=== PATIENT | female | born 1950 | race African-American/Black ===

== ENCOUNTER 2019-07-15 15:12 | Inpatient (IN) ==
--- NOTE | 2019-07-15 15:50 | PROVIDER DOCUMENTATION ---
HPI-General Adult - General Stated Complaint: WEIGHT LOSS Time Seen by Provider: 07/15/19 15:35 Source: EMS Allergies/Adverse Reactions: Patient Allergies Allergy/AdvReac Type Severity Reaction Status Date / Time Sulfa (Sulfonamide Allergy Mild RASH Verified 11/04/15 01:05 Antibiotics) Home Medications: Home Medication List Medication Instructions Recorded Confirmed Last Taken Type NK [No Home Medications] 07/16/19 07/16/19 Unknown History - History of Present Illness -Gen Adult Nature of Presenting Problems: Pt brought in by EMS after being called by a family member. Niece is at bedside. Niece states she is from out of town and Pt is currently living with 22 YO nephew. Niece states she noticed something "not being right with pt" when she came into town which is why she called EMS. She has no hx for the patient and does not know the recent events of the patient. On exam, pt is not oriented and is barely talking. She repeats "I kneed my cell phone" she does not respond to questions. She does not answer if she is in any pain. She is in no acute distress but with dry mucous membraines. Niece states pt was in the process of having a workup for dementia by PCP but states other organic causes were trying to be ruled out, however pt was not compliant with getting tests performed. Review of Systems - Adult - REVIEW OF SYSTEMS - ADULT ROS:: unobtainable per condition Constitutional: reports: see HPI Eyes: reports: see HPI Ears, Nose, Mouth & Throat: reports: see HPI Cardiovascular: reports: see HPI Past History - Adult - PAST MEDICAL HISTORY-ADULT Review of Records: reports: Social history reviewed & non-contributory. Major Childhood Illnesses: reports: denies history Cardiovascular: reports: HTN, hyperlipidemia Musculoskeletal: reports: arthritis - PRIOR SURGERIES/PROCEDURES Surgical/Procedure History: reports: hysterectomy - IMMUNIZATION STATUS Childhood Immunizations: See Nurse Assessment Flu Vaccine: See Nurse Assessment - FAMILY HISTORY Family History: reviewed, not pertinent - SOCIAL HISTORY Living Situation: family (lives with 22 YO nephew) Physical Exam-General - PHYSICAL EXAM-ADULT Initial Vital Signs Reviewed: Yes - CONSTITUTIONAL General Appearance: alert, no apparent distress, thin, other (does not answer questions) - EYES Eyes: PERRL/EOMI - HEAD, EARS, NOSE, MOUTH & THROAT HENMT: other (dry membraines) - NECK Neck: full range of motion, supple - RESPIRATORY Respiratory: lungs clear, normal breath sounds, no pleuratic chest pain, no respiratory distress - GASTROINTESTINAL (ABDOMEN) Abdominal Exam: soft, tenderness, other (LLQ tenderness). negative: distended, guarding, rebound - MUSCULOSKELETAL Extremity: normal range of motion, normal inspection, no pedal edema - SKIN Integumentary: normal color, normal turgor, warm/dry - NEUROLOGIC Neurologic: grossly normal - PSYCHIATRIC Psych/Mental Status: disoriented x 3 Progress - PLAN OF CARE/RESULTS Progress/Plan/Lab Results: Orders Category Date Time Status CHEST-1 VIEW [RAD] Stat Exams 07/15/19 15:[address] ABDOMEN/PELVIS W/O CONTRAST [CT] Stat Exams 07/15/19 15:[address] HEAD W/O CONTRAST [CT] Stat Exams 07/15/19 15:43 Ordered CBC WITH ELECTRONIC DIFF [HEME] Stat Lab 07/15/19 15:43 Uncollected COMPREHENSIVE METABOLIC PANEL [CHEM] Stat Lab 07/15/19 15:43 Uncollected MAGNESIUM [CHEM] Stat Lab 07/15/19 15:45 Uncollected TROPONIN T Stat Lab 07/15/19 15:43 Ordered TSH Stat Lab 07/15/19 15:43 Uncollected URINALYSIS W/POSS RFLX CULT [URINALYSIS] Stat Lab 07/15/19 15:43 Uncollected EKG [EKG] Stat Ther 07/15/19 15:43 Ordered Result Diagrams: 07/24/19 03:49 07/25/19 05:30 - REASSESSMENT Reassessment #1 Status: other (labs reviewed and showing normal WBC and normal lactate. imaging showing SBP and b/l infliltrates in lower lung lobes. will give zosyn for possible aspiration pna, and rocephin already given. admitting for pna and sbo. Dr. Boykin pt.) - EKG 1 Time of EKG reading by physician:: 16:35 Rate: 124 Rhythm: junctional rhythm QRS: poor R wave progression, other (poor voltage) ST Wave: normal Prior EKG Comparison: changes noted (new junctional rhythm change from October 2018.) - CT/MRI 1 CT Study: Head Impression: See EMR Report (CT HEAD W/O CONTRAST - 07/15/2019 INDICATION: AMS COMPARISON: 11/09/2018 FINDINGS: There is selective cerebral atrophy in the frontal and temporal lobes. This has worsened since prior. No intracranial mass or hemorrhage. The skull is intact. The sinuses are clear. IMPRESSION: Worsening cerebral atrophy. This is selective for the frontal temporal lobes. This may represent frontotemporal dementia. This exam was performed using automated exposure control, adjustment of mA or kV according to patient size, and/or use of iterative reconstruction technique Electronically signed by Fred Beach 07/15/2019 4:36 PM) - CONSULTS/PCP/HOSPITALIST Notification #1 *Consult/PCP/Hospitalist*: Dr. Perez Time Discussed: 16:50 Consult Disposition: other #2 Consult: Dr. Boykin states he is on his way into the ED Time Discussed: 18:05 Consult Disposition: Will see in ED Departure - Departure Date of Disposition Decision: 07/15/19 Time of Disposition Decision: 19:06 DIAGNOSIS: Pneumonia, Small bowel obstruction Disposition: ADMITTED INPATIENT 09 Certified Medical Emergency: Emergent Condition: Stable - Critical Care Note This patient required my direct & personal management of CC.: No Attestation - Physician/ STEF Attestation Patient care was provided by Advanced Practice Provider:: No The physician spent face to face time with patient:: Yes Advanced Practice Provider documentation review:: Supervising physician onsite and consulted in the evaluation and care of this patient. The physician did have a face to face encounter with the patient.
--- NOTE | 2019-07-15 16:38 | Diag Imaging Result Doc PS360 ---
CT HEAD W/O CONTRAST - 07/15/2019 INDICATION: AMS COMPARISON: 11/09/2018 FINDINGS: There is selective cerebral atrophy in the frontal and temporal lobes. This has worsened since prior. No intracranial mass or hemorrhage. The skull is intact. The sinuses are clear. IMPRESSION: Worsening cerebral atrophy. This is selective for the frontal temporal lobes. This may represent frontotemporal dementia. This exam was performed using automated exposure control, adjustment of mA or kV according to patient size, and/or use of iterative reconstruction technique Electronically signed by Fred Beach 07/15/2019 4:36 PM
--- NOTE | 2019-07-15 16:53 | Diag Imaging Result Doc PS360 ---
CT ABDOMEN/PELVIS W/O CONTRAST - 07/15/2019 INDICATION: LLQ abdominal pain COMPARISON: 03/27/2019 FINDINGS: There are extensive hazy infiltrates in the lung bases bilaterally compatible with pneumonia. Heart size is normal. There is a small pericardial effusion, similar to prior. There is a rather large hiatal hernia. There is severe distention of numerous proximal small bowel loops, with complete collapse of the distal small bowel and colon. This indicates a high-grade small bowel obstruction. The transition point is probably in the pelvis. No free air or free fluid. Urinary bladder is normal. There are moderate degenerative changes of the spine. No acute or suspicious bony lesion. IMPRESSION: 1. High-grade distal small bowel obstruction. The transition point is probably in the pelvis. 2. Extensive infiltrate/pneumonia in the lung bases. This exam was performed using automated exposure control, adjustment of mA or kV according to patient size, and/or use of iterative reconstruction technique Electronically signed by Fred Beach 07/15/2019 4:50 PM
[2019-07-15] MEDS ORDERED: ROCEPHIN 1 GM in NS 50 ML IV ONE (17:04)
[2019-07-15] MEDS ORDERED: ZOSYN 3.375 GM in NS 50 ML IV ONE (17:22)
[2019-07-15 17:24] LABS: URINE SOURCE CATH
[2019-07-15 17:30] LABS: BASO# 0.01 X1000 (0.0-0.2); BASO% 0.1 % (0.0-0.8); HEMATOCRIT 40.6 % (37.0-47.0); HEMOGLOBIN 13.1 g/dL (12.0-16.0); IMM GRAN# 0.03 X1000 (0.0-0.04); IMM GRAN% 0.3 % (0.0-0.5); LYMPH# 0.99 X1000 (1.2-3.4); LYMPH% 10.3 % (20.5-51.1); MCH 30.9 PG (27-31); MCHC 32.3 g/dL (33-37); MCV 95.8 FL (81-99); MONO# 0.51 X1000 (0.11-0.59); MONO% 5.3 % (1.7-9.3); MPV 12.8 FL (7.4-10.4); NEUT# 8.06 X1000 (1.4-6.5); PLT 103 X1000 (130-400); RBC 4.24 XMIL (4.2-5.4); RDW 15.3 % (11.5-14.5)
[2019-07-15 17:31] LABS: UR EPITHELIAL CELLS <10 /HPF (<10); URINE BACTERIA NEGATIVE /HPF; URINE RBC <10 /HPF (<10); URINE WBC <10 /HPF (<10)
[2019-07-15 17:32] LABS: BILIRUBIN URINE SMALL (NEGATIVE); BLOOD URINE NEGATIVE (NEGATIVE); COLOR YELLOW; GLUCOSE URINE NEGATIVE (NEGATIVE); KETONE URINE TRACE mg/dL (NEGATIVE); LEUKOCYTES URINE NEGATIVE (NEGATIVE); NITRITE URINE NEGATIVE (NEGATIVE); PROTEIN URINE TRACE mg/dL (NEGATIVE); SP GRAVITY URINE 1.027; TURBIDITY URINE CLEAR (CLEAR); UROBILINOGEN URINE 4 mg/dL (NORMAL)
--- NOTE | 2019-07-15 17:53 | Diag Imaging Result Doc PS360 ---
CHEST-1 VIEW - 07/15/2019 INDICATION: AMS COMPARISON: 11/25/2018 FINDINGS: The chest is clear. There are several severely gaseous distended loops of small bowel indicating small bowel obstruction. This is better evaluated on the abdomen pelvis CT. IMPRESSION: High-grade small bowel obstruction. Electronically signed by Fred Beach 07/15/2019 5:50 PM
[2019-07-15 17:55] LABS: ALB/GLOB RATIO 1.2; CALCIUM 10.2 mg/dL (8.8-10.2); CREATININE 1.3 mg/dL (0.5-0.9); MAGNESIUM 2.3 mg/dL (1.5-2.7); POTASSIUM 4.1 mmol/L (3.5-5.1); TOTAL BILIRUBIN 0.92 mg/dL (0.20-1.00); TOTAL PROTEIN 7.3 g/dL (6.3-8.3)
[2019-07-15] MEDS ORDERED: NS 3,000 ML IV ONE (19:35)
[2019-07-15] MEDS ORDERED: ZOFRAN IV PRN (19:35)
[2019-07-15] MEDS ORDERED: HALDOL IV PRN (20:05)
[2019-07-15] MEDS ORDERED: HALDOL IV ONE (20:05)
--- NOTE | 2019-07-15 20:26 | EKG Report ---
Test Performed on : 07/15/2019 4:32:24 PM Test Reason : CP Blood Pressure : / mmHG Vent. Rate : 124 BPM Atrial Rate : 120 BPM P-R Int : 000 ms QRS Dur : 064 ms QT Int : 420 ms P-R-T Axes : 000 023 088 degrees QTc Int : 603 ms Accelerated Junctional rhythm. Low voltage QRS Septal infarct (cited on or before 09-NOV-2018) Abnormal ECG When compared with ECG of 09-NOV-2018 09:05, Significant changes have occurred Unconfirmed Result
--- NOTE | 2019-07-15 22:42 | Diag Imaging Result Doc PS360 ---
CHEST/ABD TUBE PLACEMENT - 07/15/2019 9:48 PM INDICATION: NG placement COMPARISON: 4:23 PM FINDINGS: There is a nasogastric tube entering the stomach. Recommend advancing by about 5 to 10 cm. IMPRESSION: Recommend advancing nasogastric tube 5-10 cm. Electronically signed by Fred Beach 07/15/2019 10:40 PM
[2019-07-16] MEDS: ZOSYN 2.25 GM in NS 50 ML IV SCH ×4 (00:20→18:54)
[2019-07-16] MEDS: HALDOL IV PRN ×5 (00:21→22:34)
[2019-07-16] MEDS ORDERED: CALMOSEPTINE OINTMENT TOP PRN (02:04)
--- NOTE | 2019-07-16 06:37 | HISTORY AND PHYSICAL ---
CHIEF COMPLAINT: Mental status change. HISTORY OF PRESENT ILLNESS: This 68-year-old black female has been having trouble for quite some time. Over the course of last summer and fall, we had several meetings where she was not making sense and seemed to be mentally ill. We contacted the family and attempted to get them to get her into some type of program for mental health. This was not done. A month later in February they presented with complaint of weight loss, noncompliance, and many other complaints. They still felt that the patient was making her own decisions and at the time I expressed the need to do a complete workup with the patient and with the family. The patient for the most part refused workup. She eventually did agree to go see a employee relations representative and had a esophageal stricture dilated, but this did not improve her p.o. intake in any way. She refused to take the medication necessary to complete colonoscopy. In March we did a CT scan of the abdomen and pelvis. She is basically nonverbal now although she is alert and does various and sund word puzzles at times but does not communicate and basically will not talk to anybody or comply with any wishes. She apparently still manages her own medication. For inexplicable reasons, the patient's family decided that she had lost enough weight and called an ambulance to take her to the emergency room today for evaluation. I had a long talk with the family about how no one had durable power of real estate associate attorney for healthcare decisions and in the office, the patient had refused workup. We all acknowledged that the patient was not thinking clearly or correctly and that we would likely have to have some type of intervention to have medical decisions made. Her emergency room workup included a CT of the abdomen, which now showed a high- grade small bowel obstruction some place in the pelvis was the transition point. The patient had been having some vomiting but she ate so little it was difficult to tell. The CT scan also showed a possible infiltrate in the lower lobes of the lungs, but this did not show up on regular chest x-ray. The patient's lab work was otherwise good. She is admitted for treatment. PAST MEDICAL HISTORY: 1. Underweight. 2. Noncompliance with medical treatment. 3. Hypercholesterolemia. 4. History of hypertension. PAST SURGICAL HISTORY: 1. Cataract surgery. 2. Hysterectomy. 3. Gallbladder surgery. SOCIAL HISTORY: The patient is single. She is a nonsmoker. She is nonalcoholic user. FAMILY HISTORY: Noncontributory. On 03/13 the patient had lost approximately 40 pounds over previous 6 months. She has lost even more at this point. There has not been any fever or chills. Her mental status on the whole has declined. She was having some degree of mental confusion and this was documented in previous office notes that she made often nonsensical replies to questions even though her speech was fluid. This has deteriorated into her basically not responding verbally. The patient did not have any abdominal pain but was noted to be slightly tender in the emergency room. There were no other neurological problems with her as far as seizure activity or other changes. From a psychological standpoint as stated above she is not very talkative rarely responds. She will answer some questions yes or no to the family. PHYSICAL EXAMINATION: The patient is emaciated. Temperature 97.6 degrees, pulse rate 119, respiratory rate 14, blood pressure is 102/75. LUNGS: Clear to auscultation. CARDIOVASCULAR: Regular but tachycardic. ABDOMEN: Slightly tender in the upper quadrants bilaterally. She has rare bowel sounds. She is otherwise thin. She does not appear to have any tenderness in the lower quadrants. EXTREMITIES: Show considerable muscle wasting and emaciation. PSYCH: The patient made eye contact but did not speak. She was actively completing a Seek-a-word puzzle. NEURO: She moved in the bed spontaneously and seemed to have no deficits except that she did not speak. LABORATORY: White cell count 9.6, hematocrit 40.6, BUN 61, creatinine 1.3. Blood sugars normal. Urinalysis shows no sign of infection. ASSESSMENT AND PLAN: 1. The patient has chronic weight loss and now presents with small bowel obstruction. The possibility of tumor exists. She never completed her colonoscopy. She last had one [place] [address] Johnson. She did have EGD recently with stricture dilation. We will plan to do some fluid resuscitation and address some other nutritional aspects as best we can with plan to keep the patient calm and compliant. I have consulted Dr. Kwadwo Perez and I am going to try and put an NG tube down to decompress her abdomen. 2. In discussion with the patient's family they realize that she has had such a significant down turn over the last 6 months to a year that she is likely unrecoverable in many ways despite being alert. I have made her a do not resuscitate level 1. I am going to see if the social work or the patient advocate can help us get durable power of real estate associate attorney for the daughter on Wednesday when they are in. 3. I had a long discussion with the family. They are aware of the difficulty associated with this workup and her present condition. They too view her physical condition as very unlikely to be salvageable, although she is clearly not actively dying. We will give her every opportunity to recover and support her in any way possible while we are trying to get to the bottom of this. 4. The patient has been demonstrating psychological issues for some time now and I do think that is at the heart of many of her problems. cc: Lázaro Boykin MD MTDD
--- NOTE | 2019-07-16 06:54 | GENERAL SURGERY CONSULTATION ---
DATE: 07/16/2019 REQUESTING PHYSICIAN: Dr. Boykin. REASON FOR CONSULTATION: Bowel obstruction. HISTORY OF PRESENT ILLNESS: A 68-year-old female with some form of dementia for which workup is still underway. Presented to the emergency department as family felt something was not right. The patient is not very responsive as far as verbally and so it is hard get a detailed history secondary to this. She was seen in the emergency department and had a CT scan that showed a bowel obstruction with the transition point potentially down in the pelvis. It is hard to assess. The patient is significantly tender. I was asked to weigh an opinion. The patient had an NG tube removed but she has been agitated and had been pulling at it. It was slightly dislodged and the nurses were actively putting it back in. She has been given Haldol to keep her sedated and calm. PAST MEDICAL HISTORY: Includes dementia, hyperlipidemia, hypertension, arthritis, sinusitis, gastroesophageal reflux disease. PAST SURGICAL HISTORY: Includes hysterectomy, hemorrhoidectomy, right shoulder surgery. ALLERGIES: Sulfa. HOME MEDICATIONS: Reviewed. FAMILY HISTORY: Difficult to obtain secondary to patient's mental status. SOCIAL HISTORY: Apparently lives at home with family members. REVIEW OF SYSTEMS: Difficult to obtain secondary to patient's mental status. PHYSICAL EXAMINATION: Vital Signs: The patient is currently afebrile. Pulse is 115, blood pressure 120/86. General Examination: No acute distress. -[place] female, looks stated age but essentially nonverbal. HEENT: Normocephalic, atraumatic. Pupils equal, round, reactive to light. Mucous membranes moist. Oropharynx benign. Neck: Supple. Trachea midline. Cardiovascular: Some mild tachycardia. Lungs: Grossly clear. Abdomen: Nondistended. Maybe some mild discomfort in the lower quadrants but no peritoneal signs, but exam is difficult secondary to patient's nonverbal status. Extremities: Moves all extremities. Neurologic: The patient is nonverbal. Vascular: All extremities perfused. LABORATORY: White blood cell count is 9, hematocrit is 40, platelet count 103,000. Remainder of labs reviewed. Imaging reviewed. ASSESSMENT AND PLAN: A 68-year-old female with bowel obstruction, with baseline dementia. 1. Bowel obstruction. At this time, I would like to try to see how she does with a nasogastric tube. She is agitated and may need to be in restraints. They have been giving her Haldol which has been calming her down slightly, but may need to consider restraints. Hopefully, she can improve with nasogastric tube decompression. She does have a transition point down in the pelvis which would likely be related to her hysterectomy. We will continue to follow. 2. Multiple medical comorbidities currently including dementia at this time, complicates her care, but we will continue to monitor. cc: MD Lázaro Reid MD
[2019-07-16] MEDS ORDERED: NS 1,000 ML ONE (07:51)
--- NOTE | 2019-07-16 11:15 | PROGRESS NOTE ---
DATE: 07/16/2019 SUBJECTIVE: The patient is essentially nonverbal, although she will grunt and nod. The family member that was there did not stay all night but did have contact with a person who was present all night and there was no significant difficulty. They stated the Haldol was good at relaxing her and keeping her from being agitated but it did not last the entire 6 hour period. We therefore decreased the interval to every 4 hours for her Haldol. OBJECTIVE: Vital Signs: 97.6, 104, 14, 105/78, and 99% saturated on room air. Physical Examination: The patient has chapped lips. Her sclerae are anicteric. She does make eye contact. Lungs: Clear to auscultation in all mijares. Cardiovascular: Regular at approximately 100 at the time of my examination. Abdomen: Was slightly tender in the upper quadrants. Bowel sounds were scarce but present. She was generally soft and only moderately distended. She had no lower quadrant tenderness. ASSESSMENT AND PLAN: 1. Due to the patient's mental decline and weight loss, I am going to order an rapid plasma reagin and an human immunodeficiency virus for tomorrow. We will recheck labs tomorrow as well. 2. We are going to continue nasogastric tube with low intermittent suction. We will need Hemoccult that is there is some coffee-grounds appearing material present there. We appreciate Dr. Perez's consultation and will continue to try and decompress her small bowel obstruction. 3. We will continue the judicious use of chemical and soft restraints as necessary. 4. CT of the abdomen showed possible infiltrative process in the lower lungs. She has had no breathing difficulty and physical examination does not bear this out. Nevertheless, we are covering her with antibiotics which should be appropriate for pneumonia, aspiration pneumonitis, or any other intra-abdominal process. 5. Do Not Resuscitate level 1. 6. Social work has been consulted. We will need to find some way to get a family member durable power of mergers and acquisitions attorney for healthcare decisions. 7. I am going to try and add some intravenous nutrition for her. cc: Lázaro Boykin MD
[2019-07-16] MEDS: D5 NS IV SCH (15:46)
[2019-07-16] MEDS: LIPOSYN 20% 500 ML IV SCH (15:48)
[2019-07-17] MEDS: ZOSYN 2.25 GM in NS 50 ML IV SCH ×4 (01:45→23:12)
[2019-07-17] MEDS: HALDOL IV PRN ×3 (03:16→23:11)
--- NOTE | 2019-07-17 06:40 | GENERAL SURGERY PROGRESS NOTE ---
DATE: 07/17/2019 SUBJECTIVE: Patient seems to be doing okay per the nursing staff, and less agitated. OBJECTIVE: Vital Signs: Patient is currently afebrile. Her vital signs are stable. General: No acute distress. Resting. HEENT: Normocephalic, atraumatic. Pupils equal, round, and reactive to light. Mucous membranes moist. Oropharynx benign. Neck: Supple. Trachea midline. Cardiovascular: Regular rate and rhythm. Lungs: Grossly clear. Abdomen: Soft. Difficult exam secondary to patient being nonverbal, but no grimacing. Extremities: Moves all extremities. Neurologic: Nonverbal. Vascular: All extremities perfused. Skin: No signs of jaundice. LABORATORY: None this morning as of yet. ASSESSMENT/PLAN: A 69-year-old female with bowel obstruction. Bowel obstruction. At this time, continue conservative nonoperative management with NG tube decompression. The patient is nonverbal so it makes the exam difficult, but it seems like she is doing okay. My partners will cover while I am gone. cc: MD Lázaro Reid MD
[2019-07-17 07:27] LABS: EOS# 0.04 X1000 (0.0-0.7); EOS% 1.3 % (0.0-10.0); HEMATOCRIT 31.1 % (37.0-47.0); HEMOGLOBIN 9.7 g/dL (12.0-16.0); IMM GRAN# 0.02 X1000 (0.0-0.04); IMM GRAN% 0.6 % (0.0-0.5); LYMPH# 0.54 X1000 (1.2-3.4); LYMPH% 17.3 % (20.5-51.1); MCH 31.3 PG (27-31); MCHC 31.2 g/dL (33-37); MCV 100.3 FL (81-99); MONO# 0.21 X1000 (0.11-0.59); MONO% 6.7 % (1.7-9.3); NEUT# 2.31 X1000 (1.4-6.5); NEUT% 74.1 % (42.2-75.2); PLT 216 X1000 (130-400); RDW 15.5 % (11.5-14.5); WBC 3.12 X1000 (4.8-10.8)
[2019-07-17 07:36] LABS: AGAP 10; ALB/GLOB RATIO 1.1; ALBUMIN 3.1 g/dL (3.5-5.0); ALKALINE PHOSPHATASE 51 U/L (32-104); BUN 32 mg/dL (8-22); CALCIUM 8.7 mg/dL (8.8-10.2); CHLORIDE 109 mmol/L (98-107); COSMO 312; ESTIMATED GFR > 60; GLUCOSE 126 mg/dL (70-104); GOT 13 U/L (10-30); GPT 11 U/L (10-36); POTASSIUM 2.6 mmol/L (3.5-5.1); SODIUM 153 mmol/L (136-145); TCO2 34 mmol/L (25-35); TOTAL BILIRUBIN 0.39 mg/dL (0.20-1.00); TOTAL PROTEIN 5.9 g/dL (6.3-8.3)
[2019-07-17 07:49] LABS: TSH 1.55 uIUmL (0.27-4.20)
[2019-07-17] MEDS: D5 NS IV SCH (08:00)
[2019-07-17] MEDS ORDERED: POTASSIUM CHLORIDE 60 MEQ in NS 500 ML IV ONE (08:21)
[2019-07-17] MEDS ORDERED: MAGNESIUM SULFATE 2 GM/S.W.I. 2 GM/50 ML IVPB IV ONE (08:22)
--- NOTE | 2019-07-17 08:51 | Diag Imaging Result Doc PS360 ---
EXAM: KUB ABDOMEN INDICATION: sbo TECHNIQUE: One view COMPARISON: 07/15/2019 FINDINGS: The tip of the NG tube projects well below the diaphragm and is probably in the antrum of the stomach or first part of the duodenum in the expected position. Multiple gas-distended loops of small bowel are again identified. The degree of distention has probably improved slightly as compared to the previous study. No large volume free abdominal gas is appreciated. IMPRESSION: Slight improvement of the degree of gaseous distention of small bowel as compared to the previous study. Electronically signed by José Miguel Ballesteros 07/17/2019 8:49 AM
[2019-07-17] MEDS: D5W 2,000 ML IV SCH ×2 (11:49→11:56)
[2019-07-17] MEDS: LIPOSYN 20% 500 ML IV SCH (15:41)
[2019-07-17 17:11] LABS: HIV ANTIBODY SCREEN SEE COMMENTS
--- NOTE | 2019-07-17 19:15 | PROGRESS NOTE ---
DATE: 07/17/2019 SUBJECTIVE: The patient's family states that she is "getting better." She seems a little stronger and a little more interactive; although, she still refuses to talk other than grunting, nodding and saying yes or no. OBJECTIVE: Vital Signs: 97.6, 90, 17, 113/60, 98% saturated on room air. PHYSICAL EXAM: General: Thin black female in no acute distress. Lungs: Clear. Cardiovascular: Regular. Abdomen: Slightly distended given her size. She is less tender than she was on previous days. She still states that it hurts, but she does not wince when I palpate her abdomen. Extremities: No peripheral edema. LABORATORY: White cell count 3.1, hemoglobin is 9.7, hematocrit 31.1. Sodium is 153, potassium 2.6, BUN 32, creatinine 1.0, glucose is 126. B12, folate and TSH are normal. ASSESSMENT AND PLAN: 1. Rapid plasma reagin and human immunodeficiency virus tests were negative. Obvious lab abnormalities have occurred as result of aggressive rehydration. We will try and replete these abnormal values and recheck tomorrow. 2. We continue with nasogastric tube suction. Yesterday, it appeared she had 600 to 800 mL of output. Today, she has had very little and it appears to be bilious. X-ray shows maybe a slight improvement in her bowel distention. 3. Continue use of Haldol and soft restraints as necessary. 4. The patient continues on antibiotics for a possible lung infection. 5. Do not resuscitate level 1. 6. Social Work has left a couple of notes, but there is not really any mention of helping the family get durable power of client portfolio manager for healthcare decisions. May need to incorporate other entities within the hospital system to try and help her get this done. 7. Given the patient's elevated sodium and low potassium we are going to replete those electrolytes which her deficient. I am also going to switch her over to D5 1/4 normal saline and recheck her electrolyte levels in the morning. cc: Lázaro Boykin MD [facility]
[2019-07-17] MEDS: PEPCID IV SCH (23:12)
[2019-07-18] MEDS: HALDOL IV PRN ×4 (03:51→21:28)
[2019-07-18] MEDS: D5W 2,000 ML IV SCH ×2 (05:09→09:08)
[2019-07-18] MEDS: ZOSYN 2.25 GM in NS 50 ML IV SCH ×3 (05:09→17:30)
[2019-07-18 06:42] LABS: BASO# 0.01 X1000 (0.0-0.2); BASO% 0.2 % (0.0-0.8); EOS# 0.14 X1000 (0.0-0.7); EOS% 3.3 % (0.0-10.0); HEMATOCRIT 32.6 % (37.0-47.0); HEMOGLOBIN 10.4 g/dL (12.0-16.0); LYMPH# 0.89 X1000 (1.2-3.4); LYMPH% 21.3 % (20.5-51.1); MCH 32.3 PG (27-31); MCHC 31.9 g/dL (33-37); MCV 101.2 FL (81-99); MONO# 0.38 X1000 (0.11-0.59); MONO% 9.1 % (1.7-9.3); MPV 11.5 FL (7.4-10.4); NEUT# 2.76 X1000 (1.4-6.5); NEUT% 66.1 % (42.2-75.2); PLT 192 X1000 (130-400); RBC 3.22 XMIL (4.2-5.4); RDW 15.3 % (11.5-14.5); WBC 4.18 X1000 (4.8-10.8)
[2019-07-18 07:51] LABS: AGAP 16; ALB/GLOB RATIO 1.2; ALBUMIN 2.8 g/dL (3.5-5.0); ALKALINE PHOSPHATASE 49 U/L (32-104); BUN 19 mg/dL (8-22); CALCIUM 8.4 mg/dL (8.8-10.2); CHLORIDE 109 mmol/L (98-107); COSMO 300; CREATININE 0.9 mg/dL (0.5-0.9); ESTIMATED GFR > 60; GLUCOSE 92 mg/dL (70-104); GOT 13 U/L (10-30); GPT 9 U/L (10-36); SED RATE 35 mm/hr (0-20); SODIUM 150 mmol/L (136-145); TCO2 25 mmol/L (25-35); TOTAL BILIRUBIN 0.45 mg/dL (0.20-1.00); TOTAL PROTEIN 5.2 g/dL (6.3-8.3)
[2019-07-18] MEDS ORDERED: POTASSIUM PHOSPHATE 30 MEQ in NS 250 ML IV ONE (08:06)
[2019-07-18] MEDS: PEPCID IV SCH ×2 (09:25→21:28)
--- NOTE | 2019-07-18 13:32 | PROGRESS NOTE ---
DATE: 07/18/2019 Ms. Robert is a 69-year-old, black female who does not communicate. She has an NG tube in place but on exam, her abdomen is soft and it does not appear to be tender. Her family is attentive and at the bedside. They are unsure whether she has had any flatus. No bowel movements have been recorded on the nurse's notes. I do not see any evidence of any hernia on exam. She has had previous abdominal surgery with a hysterectomy. PLAN: I will remove her NG tube. There has not been much output over the last 24 hours. Her abdomen is soft. It does not appear to be tender. Certainly, there is no abdominal distention. We will keep her NPO, see how she tolerates without the NG tube. The family says she is not eating well. May need tube feeding in the future for nutrition, possibly a PEG. Her heart rate is 70, blood pressure 117/72, O2 saturation 94%. She is afebrile. Her white blood cell count is low, hematocrit is 33%. Dr. Boykin is correcting her electrolytes. Her sodium is 150, her potassium is 3, BUN and creatinine are 19 and 0.9. cc: MD Lázaro Hymna MD
--- NOTE | 2019-07-18 14:34 | PROGRESS NOTE ---
DATE: 07/18/2019 CHIEF COMPLAINT: The patient is nonverbal. The patient's family are staying with her at night to keep her from pulling out her tubes. They state that her sedation medications are not quite adequate to keep her from getting agitated and doing that. The patient voices no complaints. She nods or grunts responses but seems alert. VITAL SIGNS: 97.5, 70, 16, 117/72, 94% saturated. PHYSICAL EXAMINATION: General: The patient is alert and responds with grunts. She will not talk. I have encouraged her to try and talk. Family states that she is capable of talking. HEENT: The sclerae are anicteric. Lungs: Clear to auscultation. Cardiovascular: Regular. Abdomen: Less distended than previously. There are some scant bowel sounds heard. There is very little NG tube output other than a little bit of bilious material and air. LABORATORIES: Hemoglobin 10.4, sodium 150, potassium 3.0, BUN 19, creatinine 0.9. ASSESSMENT AND PLAN: 1. The patient's laboratory abnormalities have been addressed with intravenous fluids. We will try and get those corrected. They will be recheck tomorrow. 2. Dr. Sarmiento discontinued the nasogastric tube and will try and feed her very slowly and gingerly. 3. Continued use of Haldol and soft restraints necessary. 4. The patient continues on antibiotics. 5. Do not resuscitate level 1. 6. Thus far no one has addressed the patient's competency. I have consulted Neurology to make sure that she is not just manifesting some form of dementia, although I think mental illness more likely. Also have a psychiatric evaluation so that we can have all that information on board when we try and get durable power of consumer attorney for someone in her family. I would like for either clinical social worker or patient advocate to help them to get [employer] involved as they can sometimes help with durable power of consumer attorney. cc: Lázaro Boykin MD
[2019-07-18] MEDS: LIPOSYN 20% 500 ML IV SCH (16:30)
--- NOTE | 2019-07-18 17:49 | CONSULTATION ---
DATE OF CONSULTATION: 07/18/2019 REASON FOR CONSULT: Rule out neurological disease/dementia. HISTORY: This is a 69-year-old right-handed, black female who was admitted three days ago. Family at bedside reports they brought her in because she has had slow gradual overall decline and significant weight loss. They report onset of symptoms somewhere in the last five years or so, maybe onset three years ago. The family reports they have noticed several things in the last three or four years. Some of the early less obvious findings included the patient not always recalling either some family or close friends. They thought she was perhaps joking. Her behavior has changed and she has become more withdrawn, less interested in things. Her speech pattern has become less over time as well and most often she does not speak now. The family, however, does say that she can speak and will speak sentences from time to time. Their impression is that she speaks when she wants to. They believe that she understands everything that is spoken to her and has not had indication to think otherwise. In the last year her symptoms have more noticeably worsened. She has taken to word-finding puzzles and her time has been really taken up by these. She had even begun to take them to hoahaoism as well, before she stopped going to hoahaoism entirely. Her diet has changed. She used to cook big meals and ate a variety of foods, but about a year ago she began focusing her diet on eating chicken only for quite some time. This transitioned into eating sweets and snacks such as chips and cakes and lollipops. This would have been very unusual for her. Later, she focused on eating mostly fruits. More recently, she has gone to drinking only shakes such as Ensure and now is not eating much at all for the last few months. She has had a significant weight loss. She is emaciated. She pushes food away and says it does not taste good. There has not been witnessed choking or difficulty swallowing. Her voice sounds normal when she does talk. Her behavior in the last couple of years has been unusual. They put a tracker on her phone and at one point, the granddaughter was calling police stations in various counties trying to have them assist in stopping the patient who was driving the [address] out of [facility]. The patient was confused. She had initially driven to [place] and stated that her store was not there and she was upset. When visiting relatives she began pulling her car into the grass and making excuses that did not make sense. She is not driving now. She has gone up to the car dealership and taken keys off of a wall trying to drive off with the car. She does not understand simple things that most people would be able to understand and that she herself would have been able to understand in prior years. Very recently she has not taken care of her house or herself. She is not maintaining her hygiene and not getting dressed. They also report that they may ask her a question and she would respond with changing the subject and talking about something unrelated. There has not been fever or recent illness that they are aware of. On admission, there was concern for possible small bowel obstruction but that seems to have improved. She has not had any hallucinations. She has no prior psychiatric history that they are aware of. She has not had problems with falling. Head CT on arrival did show worsening cerebral atrophy compared to a study in October earlier this year. That atrophy appears to be primarily in the frontal and temporal lobes. Lab abnormalities have included low white cell count, hemoglobin, and hematocrit, hypernatremia, a BUN of 61 on admission, now 19, creatinine 1.3 now 0.9. PAST MEDICAL HISTORY: Hypercholesterolemia. History of hypertension they report. GERD. Underweight. Medical noncompliance. SURGERY: Gallbladder surgery, hysterectomy, and cataract surgery. FAMILY HISTORY: No dementia, strokes, or seizures. SOCIAL HISTORY: No tobacco or alcohol. I believe a grandson has been staying with her. ALLERGIES: Listed to sulfa. CURRENT MEDICATIONS: Reviewed in the chart. REVIEW OF SYSTEMS: Unobtainable due to patient factors. PHYSICAL EXAMINATION: Vital Signs: Afebrile. Blood pressure 117/72, pulse 68, respirations 17, 100% on room air. General: Ms Robert is supine in bed. Appears to be resting comfortably but is easily awakened and seems attentive. She is emaciated. Family showed a picture of her from a few years back and there has been a dramatic change in her overall appearance. Neurologic: She does not speak. She did not follow commands. She actively resists passive eye opening and is persistent. I could not get a good look at her pupils. Gaze is conjugate. She tracks. She has full horizontal eye movement. I could not assess vertical eye movement well. She blinks to threat. Face appears symmetric. She appeared to move the limbs equally and withdrew her limbs equally to mild noxious stimuli. There was not obvious focal deficit. Reflexes were 2+ throughout. No clonus. Plantar response is downgoing. She does not participate with finger-to- nose or rapid alternating movements. DIAGNOSTICS: Labs as per above. Head CTs were personally reviewed. There is at least moderate cerebral atrophy which does appear to be selective for the frontal and temporal regions. ASSESSMENT AND PLAN: A 69-year-old female with progressive behavioral cell changer the last few years. There may also be a language disturbance but I cannot tell today if that is the case or if her lack of verbal output is more of a behavioral manifestation. Family reports that she will intermittently speak in full sentences. Clinical course and CT findings are concerning for an underlying dementia process. I suspect this may be a frontotemporal dementia. Other types are not excluded at this time. I would recommend an MRI of the brain with and without contrast if you can get that. The patient is likely to require some sedation before the study. I would continue treating her medical and metabolic abnormalities as you are doing. Thank you for the consultation cc: MD Lázaro Zelaya MD MTDD
[2019-07-18] MEDS: SODIUM CHLORIDE 0.9% INJ SCH (21:29)
[2019-07-19] MEDS: D5W 2,000 ML IV SCH ×2 (00:07→10:58)
[2019-07-19] MEDS: ZOSYN 2.25 GM in NS 50 ML IV SCH ×2 (00:07→05:52)
[2019-07-19 06:47] LABS: BASO# 0.02 X1000 (0.0-0.2); BASO% 0.4 % (0.0-0.8); EOS# 0.19 X1000 (0.0-0.7); EOS% 3.5 % (0.0-10.0); HEMOGLOBIN 10.6 g/dL (12.0-16.0); LYMPH# 1.17 X1000 (1.2-3.4); LYMPH% 21.5 % (20.5-51.1); MCH 32.1 PG (27-31); MCHC 33.1 g/dL (33-37); MONO# 0.46 X1000 (0.11-0.59); MONO% 8.4 % (1.7-9.3); MPV 11.8 FL (7.4-10.4); NEUT# 3.61 X1000 (1.4-6.5); NEUT% 66.2 % (42.2-75.2); PLT 225 X1000 (130-400); RDW 14.5 % (11.5-14.5); WBC 5.45 X1000 (4.8-10.8)
[2019-07-19 06:56] LABS: AGAP 13; ALB/GLOB RATIO 1.1; ALBUMIN 2.7 g/dL (3.5-5.0); ALKALINE PHOSPHATASE 49 U/L (32-104); BUN 12 mg/dL (8-22); CALCIUM 7.8 mg/dL (8.8-10.2); CHLORIDE 100 mmol/L (98-107); COSMO 277; CREATININE 0.9 mg/dL (0.5-0.9); ESTIMATED GFR > 60; GLUCOSE 101 mg/dL (70-104); GOT 14 U/L (10-30); GPT 9 U/L (10-36); MAGNESIUM 2.2 mg/dL (1.5-2.7); PHOSPHORUS 2.7 mg/dL (2.7-4.5); POTASSIUM 2.8 mmol/L (3.5-5.1); SODIUM 139 mmol/L (136-145); TCO2 26 mmol/L (25-35); TOTAL BILIRUBIN 0.35 mg/dL (0.20-1.00); TOTAL PROTEIN 5.2 g/dL (6.3-8.3)
[2019-07-19] MEDS: SODIUM CHLORIDE 0.9% INJ SCH (08:25)
[2019-07-19] MEDS: PEPCID IV SCH ×2 (08:25→21:57)
[2019-07-19] MEDS ORDERED: M.V.I.-12 10 ML, FOLIC ACID 1 MG, MAGNESIUM SULFATE 1 GM, THIAMINE 100 MG in NS 1,000 ML IV ONE (08:56)
[2019-07-19] MEDS: HALDOL IV PRN ×2 (09:17→21:56)
[2019-07-19] MEDS: POTASSIUM CHLORIDE 60 MEQ in NS 500 ML IV SCH ×2 (10:51→22:09)
--- NOTE | 2019-07-19 11:42 | PROGRESS NOTE ---
DATE: 07/19/2019 SUBJECTIVE: The patient is awake and alert, she makes eye contact. She will nod, frown and grunt, but will not talk. She denies any pain. She is working a word puzzle. Her family members are present, which I spoke to at length. OBJECTIVE: Vital signs: 98.2, 86, 20, 121/62. General: The patient is alert and makes eye contact. She is lying in a bed working a word puzzle. She is moving about trying to throw her legs over the rails. The family is trying to keep her in the bed. She is not violent. Lungs: Clear. Cardiovascular: Regular. Abdomen: No evidence of distention. There are bowel sounds present, albeit somewhat slow. LABORATORY: White cell count 5.5, hemoglobin 10.6, potassium 2.8, BUN 12, and creatinine 0.9. Liver function tests normal. ASSESSMENT AND PLAN: 1. Laboratory abnormalities are going to be repleted with IV. I have also written for a banana bag in case of any nutritional deficits that could be accommodated in that fashion. 2. Dr. Sarmiento discontinued nasogastric tube. We will try clear liquids today although her general response to this has been, according to the family, negative. 3. We can continue to use Haldol, and soft restraints as necessary. 4. The patient continues on antibiotics. 5. Do not resuscitate level 1. 6. I spoke again with the family about obtaining durable power of marine engine driver. Hopefully, we can get [employer] ]involved again to get an emergency or permanent durable power for her. 7. Neurological consultation revealed likely dementia and recommended MRI. I have ordered one for tomorrow with additional sedation with using Haldol and Ativan prior to her procedure. 8. In discussion with the family, the prospect of using a feeding tube was tossed out there. They are not sure that that would help her at all anyway. I think we really have 2 options at discharge, and that is going to be intermediate with a feeding tube and try to improve her nutrition although I do not think this will help her mental status in any way. If they decide against the feeding tube, then the other options are intermediate with hospice or to go home with hospice. I am not sure that they have the facility to adequately care for her at home. In all likelihood, she will need intermediate placement with hospice at some point. 9. Physical Therapy was consulted. cc: MD JESSI Logan
[2019-07-19] MEDS: LIPOSYN 20% 500 ML IV SCH (21:57)
[2019-07-19] MEDS: ZYPREXA ZYDIS PO SCH (21:57)
[2019-07-20] MEDS: HALDOL IV PRN ×3 (02:50→21:14)
[2019-07-20] MEDS: ZOSYN 2.25 GM in NS 50 ML IV SCH ×4 (02:59→21:14)
[2019-07-20] MEDS ORDERED: ATIVAN IV ONE (07:00)
[2019-07-20] MEDS: LIPOSYN 20% 500 ML IV SCH ×2 (09:14→21:26)
[2019-07-20] MEDS: D5W 2,000 ML IV SCH (09:35)
[2019-07-20] MEDS: PEPCID IV SCH ×2 (09:39→22:55)
--- NOTE | 2019-07-20 09:49 | Diag Imaging Result Doc PS360 ---
EXAM: MRI BRAIN W/WO CONTRAST INDICATION: dementia COMPARISON: None. FINDINGS: There is no evidence of acute infarct. The deep white matter signal is unremarkable. There is diffuse brain atrophy including parietal lobe atrophy and atrophy of the medial temporal lobe. The medial temporal lobe atrophy score (MTA score) is 2. There is no discrete intracranial mass, mass effect, or intracranial hemorrhage. There is no evidence of abnormal intracranial enhancement. There is minimal left sphenoid sinus mucosal disease. Surrounding soft tissues and bony structures are essentially unremarkable, otherwise. IMPRESSION: Diffuse brain atrophy as described above. No evidence of acute intracranial pathology. Electronically signed by José Miguel Ballesteros 07/20/2019 9:47 AM
--- NOTE | 2019-07-20 14:20 | EKG Report ---
Test Performed on : 07/20/2019 2:09:54 PM Test Reason : tachycardia Blood Pressure : / mmHG Vent. Rate : 121 BPM Atrial Rate : 121 BPM P-R Int : 128 ms QRS Dur : 060 ms QT Int : 342 ms P-R-T Axes : 033 -27 063 degrees QTc Int : 485 ms Sinus tachycardia. Inferior infarct , age undetermined Anteroseptal infarct (cited on or before 09-NOV-2018) Abnormal ECG When compared with ECG of 15-JUL-2019 16:32, (Unconfirmed) Sinus rhythm. has replaced Junctional rhythm. Inferior infarct is now present Questionable change in initial forces of Anterior leads Confirmed by Sg BEACH, Marty Yuan ([id number]) on 07/24/2019 9:25:50 AM
--- NOTE | 2019-07-20 14:25 | PROGRESS NOTE ---
DATE: 07/20/2019 SUBJECTIVE: The patient is not in the room. She is out getting an MRI. I spoke with the family member. The family member stated that the patient vomited fecal material today. She has eaten or drank very little, but did have a small amount of water prior to this. OBJECTIVE: Vital Signs: Temperature 97.9, pulse rate of 120, respiratory rate of 16, blood pressure 117/80, 97% saturated on room air. Physical exam not performed. LABORATORIES: There were no laboratories drawn today. X-RAYS: The patient had an MRI today which showed diffuse brain atrophy consistent with dementia and an abnormal medial temporal atrophy score. ASSESSMENT AND PLAN: 1. With the vomiting of feculent material, I think we need to repeat an x-ray. We may need to make her on nothing by mouth again. 2. I do not have an explanation for her elevated heart rate other than that she has become dehydrated again. We will restart intravenous fluids. 3. The clinical picture and magnetic resonance imaging are consistent with dementia. 4. I do not feel the patient is competent to make her own decisions. 5. I have spoken with multiple family members. I have encouraged them to contact [facility] to get durable power of commercial attorney. Apparently no one has done so despite instructions from myself and from social work to do this during this hospitalization. If memory serves me correctly, on our last office visit several months ago, the same instructions were given to the patient's daughter and no one has followed through. Today my office staff called [facility] about the patient and I received no other word from that office about whether they were going to make contact. 6. Do not resuscitate level 1. cc: Lázaro Boykin MD
--- NOTE | 2019-07-20 14:42 | Diag Imaging Result Doc PS360 ---
EXAM: KUB ABDOMEN 07/20/2019 HISTORY: vomiting TECHNIQUE: KUB COMMENT: There are distended gas-filled small bowel loops throughout the abdomen. The NG tube which was demonstrated on 07/17/2019 is no longer visible. There is stool in the rectum. IMPRESSION: Small bowel obstruction. Electronically signed by Kieran Valdes 07/20/2019 2:40 PM
--- NOTE | 2019-07-20 14:48 | PROGRESS NOTE ---
DATE: 07/20/2019 Ms. Robert is 69 years old, and she has had a progressive degenerative ROUGHER [employer] CEMENT process over several years. Dr. Hunt saw her for initial Neurology evaluation a few days ago. There has been concern for frontotemporal dementia. According to the family at the bedside now, she first had problems with behavior prior to the onset of language trouble. Dementia has been prominent in recent years. She has had workup here including brain MRI showing diffuse atrophy, more posterior than frontal. Medial temporal atrophy score was 2 which is of uncertain significance at age 69. She was apparently not taking any medications prior to hospitalization. Here, she has received haloperidol 5 mg as needed, averaging 2 or 3 doses daily, and she had 1 dose of lorazepam 1 mg this morning, and I think that may have been for MRI. I discussed frankly with family uncertainty regarding specific diagnosis, difficulty with being certain about a specific type of dementing illness, and likelihood that making specific diagnosis will not result in benefit to her. I suggested they consider [facility] referral if they would like to have a more precise diagnosis. I do not have any other thoughts or new suggestions from Neurology standpoint. cc: MD Lázaro Narayan III, MD MTDD
[2019-07-20] MEDS: ZYPREXA ZYDIS PO SCH (21:15)
[2019-07-20] MEDS: SODIUM CHLORIDE 0.9% INJ SCH (22:55)
[2019-07-21] MEDS: ZOSYN 2.25 GM in NS 50 ML IV SCH ×4 (02:45→20:30)
[2019-07-21] MEDS: D5W 2,000 ML IV SCH ×2 (03:51→11:49)
[2019-07-21] MEDS: HALDOL IV PRN (05:53)
[2019-07-21 06:37] LABS: BASO# 0.02 X1000 (0.0-0.2); BASO% 0.2 % (0.0-0.8); EOS# 0.01 X1000 (0.0-0.7); EOS% 0.1 % (0.0-10.0); HEMATOCRIT 34.7 % (37.0-47.0); HEMOGLOBIN 11.5 g/dL (12.0-16.0); IMM GRAN# 0.03 X1000 (0.0-0.04); IMM GRAN% 0.2 % (0.0-0.5); LYMPH# 0.59 X1000 (1.2-3.4); LYMPH% 4.9 % (20.5-51.1); MCH 31.2 PG (27-31); MCHC 33.1 g/dL (33-37); MONO# 0.66 X1000 (0.11-0.59); MONO% 5.5 % (1.7-9.3); MPV 11.4 FL (7.4-10.4); NEUT% 89.1 % (42.2-75.2); PLT 289 X1000 (130-400); RBC 3.69 XMIL (4.2-5.4); RDW 14.4 % (11.5-14.5); WBC 12.11 X1000 (4.8-10.8)
[2019-07-21 06:57] LABS: AGAP 14; ALB/GLOB RATIO 0.9; ALBUMIN 2.9 g/dL (3.5-5.0); ALKALINE PHOSPHATASE 86 U/L (32-104); BUN 8 mg/dL (8-22); CALCIUM 8.6 mg/dL (8.8-10.2); CHLORIDE 99 mmol/L (98-107); COSMO 271; CREATININE 0.9 mg/dL (0.5-0.9); ESTIMATED GFR > 60; GLUCOSE 173 mg/dL (70-104); GOT 13 U/L (10-30); GPT 10 U/L (10-36); POTASSIUM 3.8 mmol/L (3.5-5.1); SODIUM 134 mmol/L (136-145); TCO2 21 mmol/L (25-35); TOTAL BILIRUBIN 0.84 mg/dL (0.20-1.00)
[2019-07-21] MEDS ORDERED: NS 2,000 ML IV ONE (09:23)
[2019-07-21] MEDS: PEPCID IV SCH ×2 (09:40→20:30)
--- NOTE | 2019-07-21 09:59 | PROGRESS NOTE ---
DATE: 07/21/2019 SUBJECTIVE: The patient's sister who was present stated that she had a night of a lot of agitation, rapid breathing and relative disorientation. She is occasionally vomiting up small amounts of bilious and/or feculent material. This morning the patient is lying in bed and really does not respond to any stimuli from me. She is moving about the bed though. OBJECTIVE: Vital Signs: 97.8, 143, 16, 151/79, 92% saturated on room air. General: The patient is tachypneic, not really in distress though. Heart: Heart rate is very rapid, it is very difficult to quantify on physical exam. Abdomen: Slightly distended but not markedly so. I do not hear any bowel sounds. LABORATORY DATA: White cell count 12.1, hemoglobin is 11.5. Sodium 134, potassium 3.8, BUN 8, creatinine 0.9. ASSESSMENT AND PLAN: 1. The patient is vomiting feculent material. I am going to check a chest x-ray to make sure she has not developed aspiration pneumonitis. She is on antibiotics that should cover that. We will provide her with respiratory support as appropriate and necessary. I have contacted Surgery to render again an opinion on her small-bowel obstruction and whether anything else can or should be done at this point. 2. The patient is markedly tachycardic. This could signal the beginning of the end for her. I am going to give her a 2 L fluid bolus and continue her standing IV fluids and monitor progress in that regard. 3. The MRI and neurological consult are consistent with some type of dementia. As per Dr. Mendoza's note, even if we were able to make a specific diagnosis, there is very little in the way of treatment that we can do to reverse the course of this situation. 4. We finally made contact with [facility] and they will not do anything outside of the office, but they referred us to an commercial real estate attorney who may be willing to come to the hospital to get papers signed. We also were in contact with the patient's daughter who stated she might be able to come in and sign papers to provide a durable power of commercial real estate attorney for healthcare decisions only. I do think the patient is at the end of her life and there is very little we can do because of her overall emaciation and severe dementia. 5. Do Not Resuscitate level 1. cc: Lázaro Boykin MD [facility]
[2019-07-21 10:18] LABS: ALLEN TEST YES; BE 0.2 mmoll (-3.0-3.0); BLOOD TYPE ARTERIAL; HCO3-(ACT) 24.8 mmoll (20.0-26.0); METHB 1.6 % (0.0-1.5); O2(CT) 14.9 mL/dL (15.0-23.0); PCO2(98.6) 28 mmHg (35-45); SAMPLE BLOOD; THB 12.2 g/dL (11.5-17.4); pH(98.6) 7.51 (7.35-7.45)
[2019-07-21 10:19] LABS: MODALITY ROOM AIR
[2019-07-21 10:20] LABS: PO2(98.6) 49 mmHg (60-100)
--- NOTE | 2019-07-21 11:38 | Diag Imaging Result Doc PS360 ---
EXAM: CHEST-PORTABLE INDICATION: tachypnea TECHNIQUE: One view COMPARISON: 07/15/2019 FINDINGS: The NG tube has been removed during the interval. The patient is rotated toward the right. There is increased central vasculature and development of subtle infiltrates bilaterally likely representing pulmonary venous congestion and interstitial edema. Superimposed pneumonia is difficult to completely exclude. The cardiac silhouette is stable. IMPRESSION: Interval development of pulmonary venous congestion and central edema +/- pneumonia. Electronically signed by José Miguel Ballesteros 07/21/2019 11:36 AM
--- NOTE | 2019-07-21 12:41 | PROGRESS NOTE ---
DATE: 07/21/2019 SUBJECTIVE: Ms. Yves Robert is a 69-year-old black female who has been hospitalized since 07/15/2019. An abdominal and pelvic CT scan performed on the day of admission suggested a small bowel obstruction. An NG tube was placed, and for several days she was treated conservatively. On the 2nd week of the holiday, I took over and seen her for surgery, and removed her NG tube because her abdomen was soft. Dr. Boykin has tried to advance her diet. Over the last 2 days, she has vomited. Over the last 24 hours, she has vomited some feculent material. Her abdomen is more distended. An abdominal x-ray performed yesterday continues to show gas-filled small loops throughout the abdomen. She does not carry on a conversation so it is hard to tell how she is doing clinically. In talking with her family, I think we need to proceed with exploratory laparotomy to correct any small-bowel obstruction or other pathology. The family understands this is a major intraabdominal surgery, and she may require ventilation after surgery and be hospitalized in the ICU. cc: MD Lázaro Hyman MD
[2019-07-21] MEDS ORDERED: DIPRIVAN 1% ONE (13:31)
[2019-07-21] MEDS ORDERED: XYLOCAINE-MPF 2% ONE (13:59)
[2019-07-21] MEDS ORDERED: QUELICIN (DOSE) ONE (13:59)
[2019-07-21] MEDS ORDERED: ROBINUL ONE (13:59)
[2019-07-21] MEDS ORDERED: ALBUMIN 25% ONE (14:01)
[2019-07-21] MEDS ORDERED: VERSED ONE ×2 (14:28→15:30)
[2019-07-21] MEDS ORDERED: FENTANYL ONE (15:27)
[2019-07-21] MEDS ORDERED: NORCURON ONE (15:27)
[2019-07-21] MEDS ORDERED: BREVIBLOC ONE (15:30)
[2019-07-21] MEDS ORDERED: ZEMURON ONE (15:30)
--- NOTE | 2019-07-21 16:57 | Diag Imaging Result Doc PS360 ---
EXAM: CHEST-PORTABLE 07/21/2019 HISTORY: central line placement TECHNIQUE: AP portable at 1651 COMMENT: There is a right internal jugular central venous catheter with its tip in the right atrium. There is an NG tube with its tip in the stomach. There is alveolar opacity in the left lower lobe. This was also present on 07/21/2019 at 0933. The opacity which appeared to be present on the previous study in the right upper lobe has apparently resolved. There is no evidence of pneumothorax or pleural fluid collection. IMPRESSION: Left lower lobe pneumonia. Electronically signed by Kieran Valdes 07/21/2019 4:55 PM
--- NOTE | 2019-07-21 17:22 | OPERATIVE NOTE ---
PROCEDURE DATE: 07/21/2019 PREOPERATIVE DIAGNOSIS: Small bowel obstruction. POSTOPERATIVE DIAGNOSIS: Small bowel obstruction. PRINCIPAL PROCEDURE: 1. Exploratory laparotomy with lysis of adhesions. 2. Right internal jugular central venous line using ultrasound guidance. SURGEON: Karis Sarmiento MD. ANESTHESIA: General. ESTIMATED BLOOD LOSS: 100 mL. DRAINS: None. INDICATIONS: Ms. Yves Robert is a 69-year-old, Black female who was hospitalized on 07/15/2019 through our emergency department with a CT scan suggesting small bowel obstruction. Initially she was treated with an NG tube and when I saw her earlier this week I thought clinically she was improved and removed her NG tube. However, over the last 2 days she has had vomiting and her abdomen has become more distended. Flat plate abdominal films still showed dilated loops of small bowel and we felt she needed to go to the operating room for exploratory laparotomy. She was difficult to examine because she does not talk. FINDINGS: She did have a distal small-bowel obstruction. She had a loop of bowel adhered to her retroperitoneum and right ovary. There was only several adhesions intra-abdominally in her pelvis from previous hysterectomy. We lysed these adhesions that were holding a loop of her small bowel and that cured the obstruction. We did take time to milk back the air and fluid in her dilated small bowel into the stomach which we removed with NG tube. We removed about 3.5 L of fluid. DESCRIPTION OF PROCEDURE: The patient was brought urgently to the operating room. She received general anesthesia under the direction of Dr. Gregory. An NG tube was placed, as was the Griffith catheter tube. Her abdomen was prepped and draped in a sterile field. I began the procedure with a midline incision made with a 10 blade scalpel and it was carried down through the skin and subcutaneous tissue with cautery. I transected the midline fascia again using cautery and entered the abdomen. She did have dilated small bowel loops. This was a distal small-bowel obstruction and the reason for the obstruction was a loop of bowel was twisted and adhered to the right ovary in the retroperitoneum. This was the only area that it was adhered to. I was able to finger fracture these adhesions and lift the bowel out of the abdomen. We took time to milk back the fluid and the air in the dilated loops of small bowel, back into the stomach which was removed with an NG tube. 3,500 mL of fluid was removed. We thought all bowel was viable. There was none compromised. We did not resect any small bowel. We explored the abdomen thoroughly. No other intra-abdominal pathology was noted. I used warm irrigation to irrigate out the bowel. We placed the bowel back in its anatomically correct position. I placed the greater omentum over the surface of the bowel. I checked the position of the NG tube and we took time closing the midline incision because she is small, slim and malnourished. I decided to use retention sutures. I also used a #1 Maxon stitch to close the fascia in addition to the retention sutures. We loosely closed the skin with skin clip last picker. Dressings were applied. I then directed my attention to more permanent IV access. Her base of right neck was prepped and draped in a sterile field. I used ultrasound guidance to identify the right internal jugular vein between the 2 heads of the right sternocleidomastoid muscle. Using ultrasound guidance on the first stick I used an 18-gauge needle to access this vein. I placed a guidewire over through the needle into the right side of the heart. The needle was removed. A dilator was placed over the guidewire, and then I used an antibiotic coated, triple-lumen central venous line and placed it over the guidewire into the superior vena cava. All 3 ports were functioning and were flushed with saline. I secured the catheter to the skin of her neck with two 3-0 silk stitches. Dressings were applied. She tolerated both of these procedures well. Plans are for her to go to the ICU on the ventilator with an NG tube and Griffith catheter tube in place. cc: MD Lázaro Hyman MD
[2019-07-21 17:24] LABS: ALLEN TEST YES; BE -5.5 mmoll (-3.0-3.0); BLOOD TYPE ARTERIAL; HCO3-(ACT) 20.6 mmoll (20.0-26.0); METHB 1.1 % (0.0-1.5); O2(CT) 21.9 mL/dL (15.0-23.0); O2HB 97.8 % (95.0-99.0); PCO2(98.6) 35 mmHg (35-45); PO2(98.6) 167 mmHg (60-100); SAMPLE BLOOD; SRATE 12 BPM; THB 15.7 g/dL (11.5-17.4); TVOL 350 mL; pH(98.6) 7.35 (7.35-7.45)
[2019-07-21 17:30] LABS: MODALITY VENTILATOR
[2019-07-21 17:47] LABS: HEMOGLOBIN 10.4 g/dL (12.0-16.0)
[2019-07-21] MEDS ORDERED: ZOFRAN IV PRN (17:56)
[2019-07-21 18:12] LABS: AGAP 12; BUN 6 mg/dL (8-22); CALCIUM 7.7 mg/dL (8.8-10.2); CHLORIDE 107 mmol/L (98-107); COSMO 277; CREATININE 0.6 mg/dL (0.5-0.9); ESTIMATED GFR > 60; GLUCOSE 128 mg/dL (70-104); POTASSIUM 3.5 mmol/L (3.5-5.1); SODIUM 139 mmol/L (136-145); TCO2 20 mmol/L (25-35)
[2019-07-21 18:26] LABS: URINE SOURCE CATH
[2019-07-21 18:40] LABS: BILIRUBIN URINE NEGATIVE (NEGATIVE); BLOOD URINE SMALL (NEGATIVE); COLOR YELLOW; GLUCOSE URINE NEGATIVE (NEGATIVE); KETONE URINE NEGATIVE (NEGATIVE); LEUKOCYTES URINE NEGATIVE (NEGATIVE); NITRITE URINE NEGATIVE (NEGATIVE); PH URINE 6.5; PROTEIN URINE TRACE mg/dL (NEGATIVE); SP GRAVITY URINE 1.017; TURBIDITY URINE CLEAR (CLEAR); UROBILINOGEN URINE NORMAL (NORMAL)
[2019-07-21 18:42] LABS: UR EPITHELIAL CELLS <10 /HPF (<10); URINE BACTERIA NEGATIVE /HPF; URINE RBC 20-40 /HPF (<10); URINE WBC <10 /HPF (<10)
[2019-07-21] MEDS: OFIRMEV 1000 MG/ISOTONIC SOLN 1,000 MG/100 ML BOTTLE IV SCH ×2 (19:00→23:30)
[2019-07-21] MEDS: NS 1,000 ML IV SCH (19:00)
[2019-07-21] MEDS: MORPHINE IV PRN (21:22)
[2019-07-21] MEDS: LIPOSYN 20% 500 ML IV SCH (22:21)
[2019-07-22] MEDS: ZOSYN 2.25 GM in NS 50 ML IV SCH ×4 (02:05→21:23)
[2019-07-22] MEDS: MORPHINE IV PRN ×3 (03:18→21:25)
[2019-07-22 04:42] LABS: ALLEN TEST YES; BE -3.7 mmoll (-3.0-3.0); BLOOD TYPE ARTERIAL; HCO3-(ACT) 22.1 mmoll (20.0-26.0); METHB 1.5 % (0.0-1.5); O2(CT) 13.9 mL/dL (15.0-23.0); O2HB 97.2 % (95.0-99.0); PCO2(98.6) 32 mmHg (35-45); PO2(98.6) 129 mmHg (60-100); SAMPLE BLOOD; SAO2 99.8 % (95.0-100.0); SRATE 12 BPM; TVOL 350 mL; pH(98.6) 7.41 (7.35-7.45)
[2019-07-22 04:43] LABS: MODALITY VENTILATOR
[2019-07-22 04:58] LABS: HEMATOCRIT 28.1 % (37.0-47.0); HEMOGLOBIN 9.3 g/dL (12.0-16.0)
[2019-07-22] MEDS: OFIRMEV 1000 MG/ISOTONIC SOLN 1,000 MG/100 ML BOTTLE IV SCH ×3 (05:03→21:21)
[2019-07-22] MEDS: LOVENOX SUBQ SCH (05:03)
[2019-07-22] MEDS: NS 1,000 ML IV SCH ×3 (05:12→21:22)
[2019-07-22 05:34] LABS: AGAP 13; BUN 7 mg/dL (8-22); CALCIUM 7.2 mg/dL (8.8-10.2); CHLORIDE 107 mmol/L (98-107); COSMO 274; CREATININE 0.7 mg/dL (0.5-0.9); ESTIMATED GFR > 60; GLUCOSE 103 mg/dL (70-104); POTASSIUM 3.7 mmol/L (3.5-5.1); SODIUM 138 mmol/L (136-145); TCO2 18 mmol/L (25-35)
--- NOTE | 2019-07-22 07:14 | Diag Imaging Result Doc PS360 ---
EXAM: CHEST-1 VIEW 07/22/2019 HISTORY: intubated TECHNIQUE: AP portable at 0550 COMMENT: There is an endotracheal tube with its tip at the thoracic inlet and an NG tube which is coiled in the stomach. There is a right internal jugular central venous catheter with its tip in the right atrium. There is dense opacification in the left lower lobe. There is perihilar ill-defined opacity which may be exacerbated by a relative decrease in inspiration compared to 07/21/2019. IMPRESSION: Left lower lobe pneumonia. Possibly worsened pulmonary edema. Electronically signed by Kieran Valdes 07/22/2019 7:12 AM
[2019-07-22] MEDS ORDERED: NS 50 ML ONE (08:48)
--- NOTE | 2019-07-22 09:44 | PROGRESS NOTE ---
DATE: 07/22/2019 SUBJECTIVE: The patient is asleep. She is still on the ventilator postoperatively. I spoke with the patient's nurse, who stated that "she is not waking up" and "she is not making enough urine." The patient underwent exploratory laparotomy with lysis of adhesions causing her small-bowel obstruction. Dr. Sarmiento describes milking 3 gallons of feculent material out of her small bowel after the surgery, but otherwise the operation went well. OBJECTIVE: Vital Signs: 98.7, 102, 12, 119/78. PHYSICAL EXAMINATION: General: The patient is unresponsive. She does extinguish her glabellar reflex. Lungs: The patient's lungs are clear. Cardiovascular: Regular. Approximately 102 at time of my examination. Abdomen: Did not show any significant bowel sounds. She was not distended. LABORATORY: 1. Hemoglobin is 9.3, hematocrit 28. ABG was pH 7.41, pCO2 of 32, PO2 of 129 on 40% FiO2 ventilator with assist control and 5 of PEEP, 350 tidal volume. BUN 7 and creatinine 0.7. ASSESSMENT AND PLAN: 1. The patient is status post exploratory laparotomy with lysis of adhesion. This issue should be resolved at this point. She continues on antibiotics. 2. The patient's tachycardia and lack of urine output is likely due to lack of intravascular volume, which is predicated upon the low albumin and being dehydrated for the past several days despite our efforts. We will continue intravenous fluids and other support. 3. Neurologically, the patient is diagnosed with dementia and progressive decline. She is incapable of making decisions on her own. 4. I do not know the status of durable power of attorney general as discussed in yesterday's note. 5. Do not resuscitate level 1. 6. I have consulted Dr. Heaton for his help in ventilator weaning, as well as critical care management. cc: Lázaro Boykin MD
[2019-07-22] MEDS: SODIUM CHLORIDE 0.9% INJ SCH (10:00)
[2019-07-22] MEDS: PEPCID IV SCH ×2 (10:00→21:24)
--- NOTE | 2019-07-22 11:09 | PROVIDER PROGRESS NOTE ---
Progress Note Pulmonary additional note: Full Consult dictation to follow. I have seen the case, reviewed the EMR, labs, latest images and other medical teams notes. Also reviewed the CONE OPERATOR notes and signed necessary form(s). I have noted changes in condition if any from yesterday and did orders if needed. Please see also signed progress sheet. Prognosis: Guarded for now. I reviewed Dr. Boykin and Dr. Sarmiento notes. She is hemodynamicaally stable and has mild acidosis. Will attempt a weaning trial today per protocol. I asked staff mine warfare officer about condition changes and if they have any needs in regard to today conditions. I ordered daily ABG, CXR. Will check probnp level. She is on zosyn. I spent more than 30 minutes in this process.
[2019-07-22] MEDS ORDERED: NS 1,000 ML IV ONE (12:57)
--- NOTE | 2019-07-22 14:53 | GENERAL SURGERY PROGRESS NOTE ---
DATE: 07/22/2019 SUBJECTIVE: The patient has had no acute events overnight. However, she has had poor urine output. OBJECTIVE: She is afebrile. Vital signs are stable.General: She is sedated, minimally responsive. GI: Soft. Hypoactive bowel sounds. Incision clean, dry, intact. LABORATORY: Hemoglobin 9.3, hematocrit 28. PH 7.4, pCO2 32, PaO2 129, bicarb 22, base deficit - 3.7. Electrolytes reviewed, unremarkable. NG tube output 3500 mL. Urine output only 125 mL over the 8 hour overnight shift. ASSESSMENT AND PLAN: A 69-year-old female status post exploratory laparotomy with lysis of adhesions for small bowel obstruction. She has had poor urine output, likely due to volume contraction. We will give her a fluid bolus. cc: MD Lázaro Martínez MD
[2019-07-22 18:30] LABS: ALLEN TEST YES; BE -7.3 mmoll (-3.0-3.0); BLOOD TYPE ARTERIAL; HCO3-(ACT) 19.2 mmoll (20.0-26.0); METHB 1.1 % (0.0-1.5); O2(CT) 21.5 mL/dL (15.0-23.0); O2HB 97.5 % (95.0-99.0); PCO2(98.6) 32 mmHg (35-45); PO2(98.6) 150 mmHg (60-100); SAMPLE BLOOD; SAO2 99.9 % (95.0-100.0); THB 15.5 g/dL (11.5-17.4); pH(98.6) 7.34 (7.35-7.45)
[2019-07-22 18:31] LABS: MODALITY VENTILATOR
--- NOTE | 2019-07-22 21:03 | CONSULTATION ---
DATE OF CONSULTATION: 07/22/2019 CHIEF COMPLAINT: Mental status change. HISTORY OF PRESENT ILLNESS: This is a 69-year-old female with a history of hypertension, hypercholesterolemia and recent weight loss. Recent chest x-ray revealed left lower lobe pneumonia and possible worsening pulmonary edema. PAST MEDICAL HISTORY: 1. Noncompliance with medical treatment. 2. Underweight. 3. Hypercholesterolemia. 4. Hypertension. PAST SURGICAL HISTORY: 1. Cataract surgery. 2. Hysterectomy. 3. Gallbladder surgery. SOCIAL HISTORY: Patient is single. Nonsmoker. Nonalcohol use. FAMILY HISTORY: Noncontributory. REVIEW OF SYSTEMS: A 10-point review of systems was obtained and the pertinent is listed within the HPI, otherwise noncontributory. LABORATORY DATA: Sodium 138. Potassium 3.7. Chloride 107. Glucose 103. PH 7.41. PCO2 of 32. Oxyhemoglobin 97.2. BUN 7. Creatinine 0.7. DIAGNOSTIC DATA: Mentioned in the HPI. MEDICATION LIST: Please see home reconciliation list. PHYSICAL EXAMINATION: VITAL SIGNS: Blood pressure 103/67, temperature 97.5, pulse 96, respirations 12, O2 saturation 100% per mechanical ventilation. GENERAL: This is a 69-year-old resting in bed with ventilatory support. Family member at bedside. HEENT: Head is atraumatic, normocephalic. Moist mucous membranes. NECK: Supple. Endotracheal tube in place. CARDIOVASCULAR: Regular rate and rhythm. No gallops, murmurs or rubs. LUNGS: Clear to auscultation. ABDOMEN: Decreased bowel sounds throughout. EXTREMITIES: Show considerable muscle wasting and emaciation. No clubbing, cyanosis or edema. ASSESSMENT AND PLAN: 1. Acute hypoxic respiratory failure. She is currently on ventilatory support. We will continue to monitor ABGs. 2. Pneumonia left lower lobe and pulmonary edema. Continue antibiotics as prescribed. We will continue x-ray imaging. 3. Small bowel obstruction secondary with lysis of adhesions status post exploratory laparotomy. NG tube in place. 4. Hypertension. We will continue to monitor. 5. Continue gastrointestinal prophylaxis and deep venous thrombosis prophylaxis. Thank you for the courtesy of this consult. Dictated by HO Nash for Cyndi Heaton MD cc: HO Nash MD Timothy P. Weirich, MD
[2019-07-22] MEDS: LIPOSYN 20% 500 ML IV SCH (22:50)
[2019-07-23] MEDS: NS 1,000 ML IV SCH ×3 (00:13→21:07)
[2019-07-23] MEDS: ZOSYN 2.25 GM in NS 50 ML IV SCH ×4 (03:06→21:08)
[2019-07-23] MEDS: OFIRMEV 1000 MG/ISOTONIC SOLN 1,000 MG/100 ML BOTTLE IV SCH ×4 (03:06→21:08)
[2019-07-23 04:30] LABS: ALLEN TEST YES; BE -7.8 mmoll (-3.0-3.0); BLOOD TYPE ARTERIAL; HCO3-(ACT) 18.9 mmoll (20.0-26.0); METHB 0.8 % (0.0-1.5); O2HB 97.9 % (95.0-99.0); PCO2(98.6) 29 mmHg (35-45); PO2(98.6) 113 mmHg (60-100); SAMPLE BLOOD; SAO2 99.8 % (95.0-100.0); THB 5.6 g/dL (11.5-17.4); pH(98.6) 7.37 (7.35-7.45)
[2019-07-23 04:32] LABS: MODALITY VENTILATOR
[2019-07-23] MEDS: LOVENOX SUBQ SCH (05:23)
--- NOTE | 2019-07-23 07:05 | Diag Imaging Result Doc PS360 ---
EXAM: CHEST-1 VIEW 07/23/2019 HISTORY: SOB TECHNIQUE: AP portable at 0609 COMMENT: There is an endotracheal tube with its tip at the thoracic inlet and an NG tube coiled in the fundus of the stomach. There is patchy alveolar opacity throughout both lungs. This has worsened over the right lower lobe since the previous study of 07/22/2019. IMPRESSION: Worsening pulmonary edema versus pneumonia. Electronically signed by Kieran Valdes 07/23/2019 7:03 AM
[2019-07-23 07:10] LABS: BASO# 0.02 X1000 (0.0-0.2); BASO% 0.2 % (0.0-0.8); EOS# 0.43 X1000 (0.0-0.7); EOS% 3.6 % (0.0-10.0); HEMATOCRIT 25.8 % (37.0-47.0); LYMPH# 0.97 X1000 (1.2-3.4); LYMPH% 8.2 % (20.5-51.1); MCH 33.7 PG (27-31); MCHC 34.9 g/dL (33-37); MCV 96.6 FL (81-99); MONO# 0.27 X1000 (0.11-0.59); MONO% 2.3 % (1.7-9.3); NEUT# 10.21 X1000 (1.4-6.5); NEUT% 85.7 % (42.2-75.2); PLT 238 X1000 (130-400); RBC 2.67 XMIL (4.2-5.4); RDW 15.2 % (11.5-14.5)
[2019-07-23 07:16] LABS: AGAP 13; ALB/GLOB RATIO 0.4; ALBUMIN 1.2 g/dL (3.5-5.0); ALKALINE PHOSPHATASE 68 U/L (32-104); BUN 5 mg/dL (8-22); CHLORIDE 110 mmol/L (98-107); COSMO 273; CREATININE < 0.1 mg/dL (0.5-0.9); GLUCOSE 63 mg/dL (70-104); GOT < 5 U/L (10-30); GPT < 5 U/L (10-36); MAGNESIUM 1.5 mg/dL (1.5-2.7); POTASSIUM 3.5 mmol/L (3.5-5.1); SODIUM 139 mmol/L (136-145); TCO2 16 mmol/L (25-35); TOTAL BILIRUBIN 0.45 mg/dL (0.20-1.00); TOTAL PROTEIN 3.9 g/dL (6.3-8.3)
[2019-07-23 07:17] LABS: CALCIUM 6.8 mg/dL (8.8-10.2)
[2019-07-23] MEDS ORDERED: LASIX IV ONE ×2 (07:24→11:02)
--- NOTE | 2019-07-23 07:43 | GENERAL SURGERY PROGRESS NOTE ---
DATE: 07/23/2019 SUBJECTIVE: There have been no acute events overnight. OBJECTIVE: She is afebrile. Vital signs are stable. NG tube output 200 mL. Total urine output 415 mL which slightly increased after a bolus yesterday and then is down to only 100 mL over the last 8 hours. She has not been hypotensive or tachycardic overnight. General: She is arousable and nods her head but seems confused and does not follow commands. She is in no acute distress. CV: Regular rate and rhythm. Respiratory: Bilateral breath sounds are somewhat coarse. Gastrointestinal: Soft, nondistended. Hypoactive bowel sounds. Incisional dressing is clean and dry. Laboratory: White blood cell count 11.9, hemoglobin 9, hematocrit 25.8, platelet count 238,000. PH 7.37, pCO2 of 29, PaO2 of 113, bicarb 18.9, base deficit -7.8. Sodium 139, potassium 3.5, chloride 110, BUN 5, creatinine 0.1. Imaging: Her chest x-ray reveals probable pulmonary edema. ASSESSMENT AND PLAN: A 69-year-old female postoperative day 2 exploratory laparotomy with lysis of adhesions for small bowel obstruction. She is in postop respiratory failure and remains on the ventilator. She appears to have some pulmonary edema and low urine output but does not appear to be severely volume contracted at this time. I will give her a dose of Lasix. cc: MD Lázaro Martínez MD
[2019-07-23] MEDS: PEPCID IV SCH ×2 (08:33→21:08)
[2019-07-23] MEDS: MORPHINE IV PRN (08:33)
[2019-07-23] MEDS: SODIUM CHLORIDE 0.9% INJ SCH ×2 (08:33→08:34)
[2019-07-23] MEDS ORDERED: CALCIUM CHLORIDE 1 GM in NS 100 ML IV ONE (09:17)
--- NOTE | 2019-07-23 09:40 | PROGRESS NOTE ---
DATE: 07/23/2019 SUBJECTIVE: The patient is still on the ventilator, although her support mechanisms have been lowered. She is now on CPAP with pressure support of 13. She seems to be doing well. She will open her eyes to command and nods but inappropriately. It is unclear, due to her baseline mental status, how much she would understand of a command anyway. Report by the nurse reveals a low calcium and low urine output despite a fluid bolus yesterday. OBJECTIVE: Vital Signs: 97.6, 83, 12, 118/73. The patient is on CPAP at 40% FiO2 with 13 of pressure support and 5 of PEEP. Physical Examination: As stated earlier, the patient will open her eyes to command and acknowledges our presence with a nod but is generally not able to respond to questions in any significant way. This is not far from her baseline. Lungs: The patient's lungs are clear in all mijares despite reports of infiltrates and/or pulmonary edema. Cardiovascular: Regular at 90 beats per minute at the time of my examination. Abdomen: The patient has a few tinkling bowel sounds. Her abdomen is generally not distended and does not appear tender to palpation at the present time. Laboratory: White cell count is 11.9, hemoglobin is down at 9.0 which may be dilutional effect. ABG is at 7.37, pCO2 at 29, PO2 of 113, 99.8% saturated. Potassium is 3.5, BUN is 5, creatinine less than 0.1, calcium is 6.8, albumin is 1.2. ASSESSMENT AND PLAN: 1. The patient is status post exploratory laparotomy with lysis of adhesions. I think her bowel is waking up a little bit. She still has a nasogastric tube which is draining bilious material. She is on antibiotics and they are appropriate. 2. The patient's postoperative respiratory failure is being handled with a pressure support wean on CPAP. She seems to be doing well. 3. The patient's volume is being expanded by multiple intravenous fluids due to her low albumin level. I think she has a lot of dilutional effect and third-spacing. She does have some edema in her extremities. Urine output is low but the urine is clear. Consideration for salt- poor albumin or even some amino acids intravenously may be necessary. Hopefully, we can begin other nutrition other than Liposyn soon. 4. Neurologically, it is difficult to assess the patient's situation at the present time. She seems to be at baseline and reasonably comfortable where she is right now. 5. Do Not Resuscitate level 1. 6. Ventilator management per Dr. Heaton. If she is going to remain on the ventilator a number of other days, than other nutritional forms need to be considered. cc: Lázaro Boykin MD
--- NOTE | 2019-07-23 11:04 | PROVIDER PROGRESS NOTE ---
Progress Note Pulmonary additional note: I have seen the case, reviewed the EMR, labs, latest images and other medical teams notes. Also reviewed the COIL SHAPER notes and signed necessary form(s). I have noted changes in condition if any from yesterday and did orders. Please see also signed progress sheet. Prognosis: Guarded for now. Since yesterday, she is acidotic but compensated. Left on CPAP mode overnight since she was not so awake with weaning trial. tolerated Cpap mode overnight and has good cough reflex and opens eyes. Will extubate and use Bipap qhs and prn I reviewed notes from Dr. Boykin and Dr. Campoverde. Post adhesolysis, respiratory failure, pulmonary edema, and acidosis. Diuresis PRN I asked staff field engineer about condition changes and if they have any needs in regard to today conditions. I spent 32 minutes in this process.
[2019-07-23] MEDS ORDERED: LASIX ONE (16:18)
[2019-07-23] MEDS: DUONEB (A & A) INH SCH ×2 (19:05→23:29)
[2019-07-23] MEDS: LIPOSYN 20% 500 ML IV SCH (21:09)
[2019-07-24] MEDS: DUONEB (A & A) INH SCH ×6 (03:13→23:15)
[2019-07-24] MEDS: OFIRMEV 1000 MG/ISOTONIC SOLN 1,000 MG/100 ML BOTTLE IV SCH ×4 (03:47→20:06)
[2019-07-24] MEDS: ZOSYN 2.25 GM in NS 50 ML IV SCH ×4 (03:47→20:06)
[2019-07-24 04:50] LABS: ALLEN TEST YES; BE -4.5 mmoll (-3.0-3.0); BLOOD TYPE ARTERIAL; HCO3-(ACT) 21.4 mmoll (20.0-26.0); METHB 2.1 % (0.0-1.5); O2(CT) 20.4 mL/dL (15.0-23.0); O2HB 96.1 % (95.0-99.0); PCO2(98.6) 32 mmHg (35-45); PO2(98.6) 104 mmHg (60-100); SAMPLE BLOOD; SAO2 100.2 % (95.0-100.0); pH(98.6) 7.39 (7.35-7.45)
[2019-07-24 04:51] LABS: MODALITY COOL AEROSOL
[2019-07-24] MEDS: LOVENOX SUBQ SCH (05:33)
[2019-07-24 06:35] LABS: BASO# 0.01 X1000 (0.0-0.2); BASO% 0.1 % (0.0-0.8); EOS# 0.15 X1000 (0.0-0.7); EOS% 1.4 % (0.0-10.0); HEMATOCRIT 31.2 % (37.0-47.0); HEMOGLOBIN 11.7 g/dL (12.0-16.0); IMM GRAN% 0.9 % (0.0-0.5); LYMPH# 0.88 X1000 (1.2-3.4); LYMPH% 8.1 % (20.5-51.1); MCH 34.9 PG (27-31); MCHC 37.5 g/dL (33-37); MCV 93.1 FL (81-99); MONO# 0.16 X1000 (0.11-0.59); MONO% 1.5 % (1.7-9.3); MPV 12.4 FL (7.4-10.4); NEUT# 9.54 X1000 (1.4-6.5); PLT 356 X1000 (130-400); RBC 3.35 XMIL (4.2-5.4); RDW 15.1 % (11.5-14.5); WBC 10.84 X1000 (4.8-10.8)
--- NOTE | 2019-07-24 07:29 | Diag Imaging Result Doc PS360 ---
EXAM: CHEST-1 VIEW HISTORY: SOB TECHNIQUE: Single view COMPARISON: 07/23/2019 FINDINGS: The endotracheal tube has been removed. The lungs are poorly expanded. There are bilateral infiltrates. These are slightly more prominent in the mid lungs. No cardiomegaly. No pleural effusions identified. Right jugular line and nasogastric tubes are unchanged. IMPRESSION: Mild interval worsening. Electronically signed by Peter Matthews 07/24/2019 7:27 AM
[2019-07-24] MEDS: NS 1,000 ML IV SCH ×2 (08:10→15:19)
[2019-07-24] MEDS: PEPCID IV SCH ×2 (08:11→20:06)
[2019-07-24] MEDS: SODIUM CHLORIDE 0.9% INJ SCH (08:11)
--- NOTE | 2019-07-24 08:50 | PROGRESS NOTE ---
DATE: 07/24/2019 SUBJECTIVE: The patient is asleep with her eyes closed. She has been extubated. She is on aerosol face mask. She is tightly clutching the covers, and does not really respond significantly to any of my attempts to gather her attention. I reviewed the other consultants notes. OBJECTIVE: Vital Signs: Temperature 98.0, pulse rate 112, respirations 20, blood pressure 128/87, saturating 99% on aerosol face mask at 40%. General: As stated earlier, the patient is clutching tightly her covers. I noticed in her hands that she was edematous and swollen compared to baseline. Cardiovascular: Regular at approximately 120 beats per minute at the time of my examination. Lungs: Generally clear. There was no wheezing. Abdomen: Very rare bowel sounds. She is not distended. Her abdomen is soft. Neurologic: She does respond to palpation with a slight grimace. Genitourinary: Griffith catheter bag contains relatively clear-appearing urine. LABORATORY DATA: White cell count 10.8, hemoglobin 11.7. PH of 7.39, pCO2 of 32, PO2 of 104, O2 saturation 100%. Chemistries are pending. ASSESSMENT AND PLAN: 1. The patient is status post laparotomy with lysis of adhesions and secondary respiratory failure following her surgery. Her bowels have seemed to make very little progress. She still has a nasogastric tube. She is on antibiotics that are appropriate for abdominal infection. 2. Respiratory failure has improved slightly in that she is off of the ventilator. X-ray has not shown any improvement. She diuresed significantly yesterday, and does not seem to be struggling with the exception of her tachycardia. 3. The patient's volume was expanded by intravenous fluids, and she continues to get a lot. I think she is third-spacing and edematous. We may need a regular dose of Lasix to combat this. She got 40 yesterday, and was in a negative 2200 fluid balance over the course of 24 hours. She has a very poor albumin level. 4. Neurologically, she is difficult to assess at this point. 5. DO NOT RESUSCITATE level 1. 6. We may need to entertain intervention for nutrition and medication administration, which would likely include a percutaneous endoscopic gastrostomy tube. cc: Lázaro Boykin MD
[2019-07-24 10:17] LABS: AGAP 19; ALKALINE PHOSPHATASE 164 U/L (32-104); BUN 4 mg/dL (8-22); CALCIUM 7.6 mg/dL (8.8-10.2); CHLORIDE 99 mmol/L (98-107); COSMO 269; CREATININE 0.7 mg/dL (0.5-0.9); ESTIMATED GFR > 60; GLUCOSE 73 mg/dL (70-104); GOT 32 U/L (10-30); GPT 16 U/L (10-36); POTASSIUM 3.3 mmol/L (3.5-5.1); TCO2 19 mmol/L (25-35); TOTAL PROTEIN 5.3 g/dL (6.3-8.3)
[2019-07-24 10:18] LABS: ALBUMIN 1.9 g/dL (3.5-5.0)
[2019-07-24 10:19] LABS: ALB/GLOB RATIO 0.6; SODIUM 137 mmol/L (136-145)
--- NOTE | 2019-07-24 10:29 | PROVIDER PROGRESS NOTE ---
Progress Note Pulmonary additional note: I have seen the case, reviewed the EMR, labs, latest images and other medical teams notes. Also reviewed the MOLD CHANGER notes and signed necessary form(s). I have noted changes in condition if any from yesterday and did orders. Please see also signed progress sheet. Prognosis: Guarded for now. Since yesterday, she tolerated weaning and was extubated and she tolerated that. I reviewed notes from Dr. Boykin and Dr. Campoverde. Post adhesolysis, respiratory failure, pulmonary edema, and acidosis. Diuresis PRN I asked waitstaff captain about condition changes and if they have any needs in regard to today conditions. I spent 33 minutes in this process. Diagnoses Unspecified intestinal obstruction, unspecified as to partial versus complete obstruction (07/15/19) All Active Problems Abnormal weight loss (Acute) Underweight (Acute) Pneumonia (Acute) Small bowel obstruction (Acute) Vital Signs - 24 hr 07/23/19 12:00 07/23/19 13:30 07/23/19 16:00 Temperature 97.5 F L 97.6 F Pulse Rate 86 99 H Respiratory Rate 9 L 22 Blood Pressure 126/80 132/80 O2 Sat by Pulse Oximetry 100 100 99 07/23/19 19:05 07/23/19 20:00 07/24/19 00:00 Temperature 98.0 F 97.8 F Pulse Rate 88 108 H 114 H Respiratory Rate 17 19 21 Blood Pressure 153/105 150/99 O2 Sat by Pulse Oximetry 100 100 97 07/24/19 03:57 07/24/19 07:35 07/24/19 08:00 Temperature 98.0 F 97.6 F Pulse Rate 112 H 116 H 122 H Respiratory Rate 20 18 24 Blood Pressure 128/87 135/93 O2 Sat by Pulse Oximetry 99 97 100 Vital Signs 07/23/19 12:00 07/23/19 13:30 07/23/19 16:00 Temperature 97.5 F L 97.6 F Pulse Rate 86 99 H Respiratory Rate 9 L 22 Blood Pressure 126/80 132/80 O2 Sat by Pulse Oximetry 100 100 99 07/23/19 19:05 07/23/19 20:00 07/24/19 00:00 Temperature 98.0 F 97.8 F Pulse Rate 88 108 H 114 H Respiratory Rate 17 19 21 Blood Pressure 153/105 150/99 O2 Sat by Pulse Oximetry 100 100 97 07/24/19 03:57 07/24/19 07:35 07/24/19 08:00 Temperature 98.0 F 97.6 F Pulse Rate 112 H 116 H 122 H Respiratory Rate 20 18 24 Blood Pressure 128/87 135/93 O2 Sat by Pulse Oximetry 99 97 100 Intake & Output 07/23/19 07/24/19 07/24/19 19:59 07:59 19:59 Intake Total 1060 / 2960 1900 / 2960 Output Total 1950 / 5950 4000 / 5950 Balance -890 / -2990 -2100 / -2990 Intake: Intake, IV Amount 800 / 2400 1600 / 2400 Intake, IVPB 150 / 450 300 / 450 Intake, IV Electrolyte Infusion 110 / 110 Output: Output, Urine Griffith Amount 1750 / 5450 3700 / 5450 Output, NG Tube 200 / 500 300 / 500
--- NOTE | 2019-07-24 16:21 | PROGRESS NOTE ---
DATE: 07/24/2019 SUBJECTIVE: Ms. Yves Robert is now postop day 3 status post exploratory laparotomy with lysis of adhesions. She remains in our ICU and was just extubated. She remained intubated after surgery because of her weakness. She still has an NG tube in and Griffith catheter tube. She is awake, appears comfortable. She has a closed face mask O2 on. OBJECTIVE: Vital Signs: Her heart rate is 120s, 121. Blood pressure 128/87, O2 saturation 100% with a closed O2 face mask. She is afebrile. She is on low-dose Zosyn. She did get some Lasix today. LABORATORY DATA: Her white blood cell count is 10.8, hematocrit 31%. BUN and creatinine are 4 and 0.7. Her base deficit is 4.5 but that is improving. She has bilateral infiltrates by chest x- ray. She has a right internal jugular central venous line. ASSESSMENT/PLAN: She has had no bowel activity. Nasogastric= tube still in place and therefore we will continue IV nutrition. I will write TPN orders. I suspect it will be another couple days before her bowel functions. Physical therapy worked with the patient today and I spoke with the nurse about care. For pain she is on IV morphine and Tylenol. We will change her IV fluids accordingly once the TPN is hung. cc: MD Lázaro Hyman MD
--- NOTE | 2019-07-24 17:34 | PROVIDER PROGRESS NOTE ---
Progress Note Dr. Heaton Progress Note/Pulmonary and or critical care We appreciated progress of care, Complications, change in diagnosis, and instructions to patient under direct supervision of Dr. Heaton. Subjective: We note the level of consciousness, bed (chair) position, family presence (if any), level of lethargy, feeling of symptoms, and changes from baseline condition/symptom. The patient is on CAM. She is not answering questions or follows simple commands. She talks at times, but hard to understand. Patient's brother and sister at the bedside. Vital Signs: We reviewed EMR current values for Pulse rate, Blood pressure, Pulse rate, respiratory rate and Pulse oximetry. Also noted other values and trends if present (e.g. I/O, CVP). Vital Signs 07/23/19 19:05 07/23/19 20:00 07/24/19 00:00 Temperature 98.0 F 97.8 F Pulse Rate 88 108 H 114 H Respiratory Rate 17 19 21 Blood Pressure 153/105 150/99 O2 Sat by Pulse Oximetry 100 100 97 07/24/19 03:57 07/24/19 07:35 07/24/19 08:00 Temperature 98.0 F 97.6 F Pulse Rate 112 H 116 H 122 H Respiratory Rate 20 18 24 Blood Pressure 128/87 135/93 O2 Sat by Pulse Oximetry 99 97 100 07/24/19 12:00 Temperature 98.5 F Pulse Rate 121 H Respiratory Rate 23 Blood Pressure 130/83 O2 Sat by Pulse Oximetry 100 Intake & Output 07/23/19 07/24/19 07/24/19 19:59 07:59 19:59 Intake Total 1060 / 2960 1900 / 2960 1110 / 1110 Output Total 1950 / 5950 4000 / 5950 900 / 900 Balance -890 / -2990 -2100 / -2990 210 / 210 Intake: Intake, IV Amount 800 / 2400 1600 / 2400 800 / 800 Intake, IVPB 150 / 450 300 / 450 50 / 50 Intake, Other Amount 100 / 100 Intake, IV Electrolyte Infusion 110 / 110 Intake, Lipid Amount 160 / 160 Output: Output, Urine Griffith Amount 1750 / 5450 3700 / 5450 825 / 825 Output, NG Tube 200 / 500 300 / 500 75 / 75 Objective: General and HEENT: Lying in bed with no acute distress. Trachea Midline. Chest: Reduced Entry. CVS: S1 S2. Abdomen: Non-tender. Bowel Sounds present. Soft. Nondistended. Extremities: Trace edema BUE Neuro: Alert. Weakness. Not answering simple questions; not following simple commands. Labs and Radiology: Reviewed available labs and radiology values available at time of EMR review. Laboratory Results 07/24/19 07/24/19 07/24/19 03:49 03:49 04:43 WBC 10.84 H RBC 3.35 L Hgb 11.7 L D Hct 31.2 L D MCV 93.1 MCH 34.9 H MCHC 37.5 H RDW Std Deviation 15.1 H Plt Count 356 D MPV 12.4 H Immature Gran % (Auto) 0.9 H Neut % (Auto) 88.0 H Lymph % (Auto) 8.1 L Brantley % (Auto) 1.5 L Eos % (Auto) 1.4 Baso % (Auto) 0.1 Immature Gran # (Auto) 0.10 H Neut # (Auto) 9.54 H Lymph # (Auto) 0.88 L Brantley # (Auto) 0.16 Eos # (Auto) 0.15 Baso # (Auto) 0.01 Segmented Neutrophils Not Reportable Specimen Type ARTERIAL Sample Site R RADIAL pH 7.39 pCO2 32 L pO2 104 H HCO3 21.4 Base Excess -4.5 L Oxyhemoglobin 96.1 ABG O2 Sat (Calculated) 20.4 ABG O2 Saturation 100.2 H ABG Carboxyhemoglobin 2.00 ABG Methemoglobin 2.1 H Jerrod Test YES A-a O2 Difference 141.0 Total Hemoglobin 15.0 Lactate 1.90 Liter Flow 10.0 Blood Gas Modality COOL AEROSOL FiO2 % 40.0 Sodium Cancelled Potassium Cancelled Chloride Cancelled Carbon Dioxide Cancelled Anion Gap Cancelled BUN Cancelled Creatinine Cancelled Estimated GFR/1.73 m2 Cancelled BUN/Creatinine Ratio Cancelled Glucose Cancelled Calculated Osmolality Cancelled Calcium Cancelled Total Bilirubin Cancelled AST Cancelled ALT Cancelled Alkaline Phosphatase Cancelled Total Protein Cancelled Albumin Cancelled Globulin Cancelled Albumin/Globulin Ratio Cancelled 07/24/19 08:58 WBC RBC Hgb Hct MCV MCH MCHC RDW Std Deviation Plt Count MPV Immature Gran % (Auto) Neut % (Auto) Lymph % (Auto) Brantley % (Auto) Eos % (Auto) Baso % (Auto) Immature Gran # (Auto) Neut # (Auto) Lymph # (Auto) Brantley # (Auto) Eos # (Auto) Baso # (Auto) Segmented Neutrophils Specimen Type Sample Site pH pCO2 pO2 HCO3 Base Excess Oxyhemoglobin ABG O2 Sat (Calculated) ABG O2 Saturation ABG Carboxyhemoglobin ABG Methemoglobin Jerrod Test A-a O2 Difference Total Hemoglobin Lactate Liter Flow Blood Gas Modality FiO2 % Sodium 137 Potassium 3.3 L Chloride 99 Carbon Dioxide 19 L Anion Gap 19 BUN 4 L Creatinine 0.7 Estimated GFR/1.73 m2 > 60 BUN/Creatinine Ratio 6 Glucose 73 Calculated Osmolality 269 Calcium 7.6 L Total Bilirubin 0.80 AST 32 H ALT 16 Alkaline Phosphatase 164 H Total Protein 5.3 L Albumin 1.9 L Globulin 3.4 Albumin/Globulin Ratio 0.6 Dr. Heaton evaluated and additional note below. Evaluation time in minutes: 31 minutes Assessment: DNRI Postoperative respiratory failure, extubated Pulmonary edema Small bowel obstruction s/p laparotomy and adhesolysis Plan Continue current treatment and supportive care per admitting and other teams on the case. Antibiotics Bronchodilators Appropriate DVT and GI prophylaxis Physical Therapy Swallow evaluation Input was appreciated from Admitting MD and other teams on the case. See additional notes by Dr. Heaton.
[2019-07-24] MEDS: [UNRECOGNIZED DRUG - NUTRITION] IV SCH ×6 (18:41)
[2019-07-24] MEDS: MORPHINE IV PRN (20:05)
[2019-07-24] MEDS: HUMULIN R SUBQ SCH (21:00)
[2019-07-24] MEDS: HALDOL IV PRN (22:10)
[2019-07-25] MEDS: HUMULIN R SUBQ SCH ×6 (01:00→20:43)
[2019-07-25] MEDS: MORPHINE IV PRN ×3 (01:58→18:08)
[2019-07-25] MEDS: ZOSYN 2.25 GM in NS 50 ML IV SCH ×4 (02:00→20:55)
[2019-07-25] MEDS: HALDOL IV PRN ×3 (02:00→22:49)
[2019-07-25] MEDS: OFIRMEV 1000 MG/ISOTONIC SOLN 1,000 MG/100 ML BOTTLE IV SCH ×4 (02:00→20:55)
[2019-07-25] MEDS: LIPOSYN 20% 250 ML IV SCH (02:01)
[2019-07-25] MEDS: NS 1,000 ML IV SCH (02:01)
[2019-07-25] MEDS: DUONEB (A & A) INH SCH ×6 (03:41→23:30)
[2019-07-25] MEDS: LOVENOX SUBQ SCH (05:11)
[2019-07-25] MEDS ORDERED: LASIX IV ONE (07:01)
[2019-07-25] MEDS ORDERED: LABETALOL IV ONE (08:00)
[2019-07-25 08:28] LABS: AGAP 21; BUN 6 mg/dL (8-22); CALCIUM 7.7 mg/dL (8.8-10.2); CHLORIDE 105 mmol/L (98-107); CHOLESTEROL 147 mg/dL (0-200); COSMO 281; CREATININE 0.7 mg/dL (0.5-0.9); ESTIMATED GFR > 60; GLUCOSE 104 mg/dL (70-104); MAGNESIUM 1.3 mg/dL (1.5-2.7); SODIUM 142 mmol/L (136-145); TCO2 16 mmol/L (25-35); TRIGLYCERIDES 519 mg/dL (35-135)
--- NOTE | 2019-07-25 08:37 | Diag Imaging Result Doc PS360 ---
EXAM: CHEST-1 VIEW INDICATION: SOB TECHNIQUE: One view COMPARISON: 07/24/2019 FINDINGS: Support tubes and lines are in stable positions. Bilateral diffuse airspace infiltrates are approximately stable given differences in penetration. No new consolidation is identified. Cardiac silhouette is stable. IMPRESSION: Essentially stable chest. Electronically signed by José Miguel Ballesteros 07/25/2019 8:35 AM
[2019-07-25 08:42] LABS: GOT 55 U/L (10-30)
[2019-07-25 08:53] LABS: PHOSPHORUS 0.5 mg/dL (2.7-4.5); POTASSIUM 2.3 mmol/L (3.5-5.1)
[2019-07-25] MEDS ORDERED: MAGNESIUM SULFATE 2 GM/S.W.I. 2 GM/50 ML IVPB IV ONE (09:18)
[2019-07-25] MEDS: SODIUM CHLORIDE 0.9% INJ SCH (09:37)
[2019-07-25] MEDS: PEPCID IV SCH ×2 (09:37→20:55)
[2019-07-25 09:52] LABS: PREALBUMIN 7.4 mg/dL (20-40)
--- NOTE | 2019-07-25 10:04 | PROVIDER PROGRESS NOTE ---
Progress Note Pulmonary additional note: I have seen and examine the case, reviewed the EMR, labs, latest images and other medical teams notes. Also reviewed the TECHNICAL DELIVERY MANAGER notes and signed necessary form(s). I have noted changes in condition if any from yesterday and did orders. Please see also signed progress sheet. Prognosis: Guarded for now. Since yesterday, she remains off the ventillator. K and Mg are supplied. Lethargic. I discussed the case with her son yesterday. I reviewed notes from Dr. Boykin. She remains acidotic. Respiratory failure, compensated and extubated recently. Post operative and adhesolysis for bowel obstruction. Pulmonary edema and acidosis. I asked balance staff inspector about condition changes and if they have any needs in regard to today conditions. I spent 35 minutes in this process
[2019-07-25] MEDS: POTASSIUM PHOSPHATE 30 MEQ in NS 250 ML IV SCH ×2 (10:31→15:18)
--- NOTE | 2019-07-25 11:04 | PROVIDER PROGRESS NOTE ---
Progress Note Dr. Heaton Progress Note/Pulmonary and or critical care We appreciated progress of care, Complications, change in diagnosis, and instructions to patient under direct supervision of Dr. Heaton. Subjective: We note the level of consciousness, bed (chair) position, family presence (if any), level of lethargy, feeling of symptoms, and changes from baseline condition/symptom. The patient is on BiPAP 12/6 60%. She is moaning with HR at 100s and RR up to 40s. She is not answering questions or following simple commands. No fever overnight. Family at the bedside. K+ and phosphorus critically low this am and have been replaced. Tachycardia up to 140s this am. RN reported thatpatient breathed with less distress when on CAM, but desaturated. Patient already received IV haldol. Objective: Vital Signs: Vital Signs 07/24/19 19:47 07/24/19 20:00 07/24/19 23:15 Temperature 98.2 F Pulse Rate 134 H 135 H Respiratory Rate 19 35 H Blood Pressure 130/105 O2 Sat by Pulse Oximetry 88 L 91 L 94 L 07/25/19 00:00 07/25/19 04:00 07/25/19 07:15 Temperature 98.0 F 98.4 F Pulse Rate 135 H 140 H 147 H Respiratory Rate 28 H 32 H 22 Blood Pressure 148/98 168/112 O2 Sat by Pulse Oximetry 94 L 90 L 99 07/25/19 08:00 07/25/19 10:58 07/25/19 11:10 Temperature 97.7 F Pulse Rate 147 H 105 H Respiratory Rate 32 H 36 H Blood Pressure 153/109 O2 Sat by Pulse Oximetry 94 L 94 L 07/25/19 12:00 07/25/19 15:06 07/25/19 15:16 Temperature 97.5 F L 97.8 F Pulse Rate 109 H 122 H Respiratory Rate 43 H 39 H Blood Pressure 114/82 129/94 O2 Sat by Pulse Oximetry 97 96 99 Intake & Output 07/24/19 07/25/19 07/25/19 19:59 07:59 19:59 Intake Total 1110 / 3016 1906 / 3016 1334 / 1334 Output Total 900 / 1850 950 / 1850 1770 / 1770 Balance 210 / 1166 956 / 1166 -436 / -436 Intake: Intake, IV Amount 800 / 1444 644 / 1444 200 / 200 Intake, IVPB 50 / 500 450 / 500 Intake, Other Amount 100 / 100 100 / 100 Intake, IV Electrolyte Infusion 546 / 546 Intake, TPN/PPN Amount 600 / 600 400 / 400 Intake, Lipid Amount 160 / 372 212 / 372 88 / 88 Output: Output, Urine Griffith Amount 825 / 1675 850 / 1675 1700 / 1700 Output, NG Tube 75 / 175 100 / 175 70 / 70 We reviewed EMR current values for Pulse rate, Blood pressure, Pulse rate, respiratory rate and Pulse oximetry. Also noted other values and trends if present (e.g. I/O, CVP). Physical Examination: General: Chronically ill appearing. Lying in bed with no acute distress noted. HEENT: Trachea midline. Mucus pink and slightly dry. Chest: Even and unlabored. Symmetrical excursion. Auscultation reveals diminished breathing sounds bilaterally, otherwise clear. CVS: sinus tachycardia with Regular rate and rhythm. Abdomen: Soft. Nontender. Bowel sounds present. Nondistended. Surgical incision in the abd midline is dry and clean with no s/s of infection noted. Extremities: Trace BUE edema. Neuro: Alert. Weakness present. Not answering questions or Follow simple commands. Labs and Radiology: Reviewed available labs and radiology values available at time of EMR review. Laboratory Results 07/24/19 07/25/19 07/25/19 20:04 01:23 05:08 Specimen Type Sample Site pH pCO2 pO2 HCO3 Base Excess Oxyhemoglobin ABG O2 Sat (Calculated) ABG O2 Saturation ABG Carboxyhemoglobin ABG Methemoglobin Jerrod Test A-a O2 Difference Total Hemoglobin Lactate Blood Gas Modality FiO2 % Sodium Potassium Chloride Carbon Dioxide Anion Gap BUN Creatinine Estimated GFR/1.73 m2 BUN/Creatinine Ratio Glucose POC Glucose 84 128 H D 98 Calculated Osmolality Calcium Phosphorus Magnesium AST Prealbumin Triglycerides Cholesterol 07/25/19 07/25/19 07/25/19 05:30 09:10 11:00 Specimen Type ARTERIAL Sample Site R RADIAL pH 7.43 pCO2 25 L pO2 60 HCO3 19.9 L Base Excess -6.4 L Oxyhemoglobin 92.8 L ABG O2 Sat (Calculated) 14.0 L ABG O2 Saturation 95.3 ABG Carboxyhemoglobin 1.50 ABG Methemoglobin 1.1 Jerrod Test YES A-a O2 Difference 337.0 Total Hemoglobin 10.7 L Lactate 6.40 H* Blood Gas Modality BI PAP FiO2 % 60.0 Sodium 142 Potassium 2.3 L* D Chloride 105 Carbon Dioxide 16 L Anion Gap 21 BUN 6 L Creatinine 0.7 Estimated GFR/1.73 m2 > 60 BUN/Creatinine Ratio 9 Glucose 104 POC Glucose 102 Calculated Osmolality 281 Calcium 7.7 L Phosphorus 0.5 L* Magnesium 1.3 L AST 55 H Prealbumin 7.4 L Triglycerides 519 H Cholesterol 147 07/25/19 12:48 Specimen Type Sample Site pH pCO2 pO2 HCO3 Base Excess Oxyhemoglobin ABG O2 Sat (Calculated) ABG O2 Saturation ABG Carboxyhemoglobin ABG Methemoglobin Jerrod Test A-a O2 Difference Total Hemoglobin Lactate Blood Gas Modality FiO2 % Sodium Potassium Chloride Carbon Dioxide Anion Gap BUN Creatinine Estimated GFR/1.73 m2 BUN/Creatinine Ratio Glucose POC Glucose 88 Calculated Osmolality Calcium Phosphorus Magnesium AST Prealbumin Triglycerides Cholesterol Dr. Heaton evaluated and additional note below. Evaluation time in minutes: 32 minutes. Assessment: DNR1 Postoperative respiratory failure, extubated on 07/23/2019. Worsening. Possible pneumonia with Pulmonary edema Small bowel obstruction s/p laparotomy and adhesolysis, Day 4 Plan: Continue current treatment and supportive care per admitting and other teams on the case. Antibiotics. Bronchodilators. STAT ABG and may swtich to NC. Appropriate DVT and GI prophylaxis. Physical Therapy Input was appreciated from Admitting MD and other teams on the case. See additional notes by Dr. Heaton.
[2019-07-25 11:11] LABS: ALLEN TEST YES; BE -6.4 mmoll (-3.0-3.0); BLOOD TYPE ARTERIAL; HCO3-(ACT) 19.9 mmoll (20.0-26.0); METHB 1.1 % (0.0-1.5); O2HB 92.8 % (95.0-99.0); PCO2(98.6) 25 mmHg (35-45); PO2(98.6) 60 mmHg (60-100); SAMPLE BLOOD; SAO2 95.3 % (95.0-100.0); THB 10.7 g/dL (11.5-17.4); pH(98.6) 7.43 (7.35-7.45)
[2019-07-25 11:13] LABS: MODALITY BI PAP
--- NOTE | 2019-07-25 11:23 | PROGRESS NOTE ---
DATE: 07/25/2019 SUBJECTIVE: The patient was agitated through the night and this morning. She is much more awake. I spoke with a family member in the room today, the 1st family member I have seen in 4-5 days in the actual ICU. The family member stated that the patient spoke yesterday and seemed to respond, which has not really happened to any significant degree since she was put in the hospital. OBJECTIVE: Vital Signs: Temperature 98.4, pulse rate of 140, respiratory rate 32, blood pressure was 168/112, 90% saturated on 40% cool mist. HEENT: Physical exam the patient opens her eyes, and tries to speak. She is on BiPAP at the time of my examination. The patient's hands are edematous and she has dependent edema in the buttock and sacral area. Lungs: Generally clear, but air movement is poor. She is not wheezing. Cardiovascular: Regular tachycardia. Abdomen: Shows a few bowel sounds are present although it is not overwhelming, her abdomen is generally flat, is not tense or hard. Lower extremities: There is no peripheral edema in the LEs in the lower extremities at the ankle. LABORATORY: BUN 6, creatinine 0.7, calcium and magnesium are low. Chest x-ray: The chest x-ray appears even more congested than yesterday which would lead me to believe she had even a larger amount of fluid overload or has developed some type of systemic inflammatory response with her lungs. ASSESSMENT/PLAN: 1. At the present time, the patient's respiratory status is most critical. I am going to get echocardiogram to make sure her LV function is okay. At no time during the hospitalization has she presented with signs or symptoms of overwhelming infection since she has never mounted a white count or fever until she had a complete obstruction of her bowel. She remains on broad-spectrum antibiotics which should be appropriate. I have given her a dose of Lasix already. We may need to re-dose this later today. In a woman of her size with her degree of nutritional deficits it would be usually become fluid overloaded. In addition, any number of nutritional deficits could have affected her LV function. 2. We will replete any abnormal electrolytes. 3. The patient is status post laparotomy with lysis of adhesions. Her bowels do seem to be more active today. She remains with an nasogastric tube which is draining bilious material. 4. Neurologically, the patient is actually somewhat improved in that she is trying to respond. She is opening her eyes and although she is agitated to a certain degree and a little bit difficult this is actually assigned a progress for her overall mental status. 5. In speaking with a family member that I ran into in the elevator yesterday and with the family member who is present in the ICU today, I informed them that the next decision is going to be where to go to for nutritional status. I do not have any confidence whatsoever that the patient will be able to sustain herself by oral intake and yet given her dementia and mental status without a feeding tube she will most likely perish. The tough decision though they have to make as whether to put in a PEG tube for nutrition and access. cc: Lázaro Boykin MD
--- NOTE | 2019-07-25 14:58 | PROGRESS NOTE ---
DATE: 07/25/2019 SUBJECTIVE: Ms Robert is now postop day 4 from exploratory laparotomy with lysis of adhesions for a small bowel obstruction. She had significant dilatation of the small bowel and we milked air and fluid a total of 3.5 L into her stomach where we could remove it with the NG tube. She had to remain intubated after surgery and then went to the ICU. Since then she has been extubated but she still needs positive pressure oxygen to maintain her O2 saturation. Her chest x-ray is abnormal with bilateral infiltrates. She remains very weak, and sedated. OBJECTIVE: Her abdomen is mostly soft. I am happy with her midline incision. She still has an NG tube in place and she is not having much output from the NG tube. Her heart rate has come down. It is now 104. Blood pressure is 150/100, O2 saturation 94% on BiPAP. She is afebrile. She has a Griffith catheter tube in place and has had good urine output with intermittent Lasix. I began TPN and lipids yesterday through a right-sided internal jugular central venous line. PLAN: We continue supportive care. As her breathing improves, I can remove this NG tube. We will keep TPN and lipids going for some calories at this time. Dr. Boykin is repleting her potassium. Her BUN and creatinine are 6 and 0.7. Her base deficit this morning was 6.4, which was up from yesterday. Her lactate was 6.4, which was also up from yesterday. She is on BiPAP at 60%. I discussed her care with the family at the bedside. cc: MD Lázaro Hyman MD
[2019-07-25] MEDS ORDERED: BLISTEX MEDICATED BERRY LIP BALM TOP PRN (16:59)
--- NOTE | 2019-07-25 18:16 | Diag Imaging Result Doc PS360 ---
EXAM: CT ABD/PELVIS W/PO AND IV CON HISTORY: Increased lactate TECHNIQUE: CT abdomen and pelvis with oral and intravenous contrast COMPARISON: 07/15/2019 FINDINGS: Interval development of a moderate-sized left pleural effusion measuring 3.2 cm posteriorly and inferiorly in the midline and a small right pleural effusion measuring 1.3 cm. There are dense infiltrates in the lower lungs as well as lower lobe atelectasis. There is a large hiatal hernia. The gallbladder has been removed. There is fatty infiltration of the liver. There is ascites about the liver with maximum thickness of 1.5 cm. A small amount of fluid is present about the spleen and in each paracolic gutter. No splenomegaly. No inflammation about the pancreas. Normal adrenal glands and kidneys although there are several tiny renal cysts. No hydronephrosis. No aortic aneurysm. There is wall thickening to the small bowel loops. Mild dilatation of several bowel loops. A Griffith catheter is in the urinary bladder. The uterus has been removed. No abscess. No free air. There are midline skin ame. IMPRESSION: 1.Development of dense bilateral infiltrates and pleural effusions 2.Although these bowel loops are less distended on the current exam there does appear to be enteritis on the current study 3.Development of a small amount of ascites and body wall edema 4.Prominent fatty infiltration of the liver 5.Cholecystectomy 6.Large hiatal hernia This exam was performed using automated exposure control, adjustment of mA or kV according to patient size, and/or use of iterative reconstruction technique. Electronically signed by Peter Matthews 07/25/2019 6:14 PM
[2019-07-25] MEDS: [UNRECOGNIZED DRUG - NUTRITION] IV SCH ×6 (18:57)
--- NOTE | 2019-07-25 22:42 | ECHO REPORT ---
ORDER DATE: 07/25/2019 MEASUREMENTS: 1. Septal thickness 0.7. 2. Left ventricular end-diastolic 3.3. 3. Posterior wall thickness 0.7. 4. Left ventricular internal diameter in systole 2.8. 5. Aortic root 2.7. 6. Left atrium 3.1. SUMMARY: 1. Technically difficult study due to limited acoustic window quality. 2. Aortic valve is not well imaged, but appears to open adequately on 2-dimensional images. Peak gradient across aortic valve is less than 5 mmHg. Mitral and tricuspid valves are without gross structural abnormality. There is trace tricuspid regurgitation. Pulmonic valve is not well imaged. Aortic root is normal size. 3. Normal left ventricular dimensions demonstrated. Estimated left ejection fraction approximately 30 to 35%. Regional wall motion analysis is challenging given the limitations of the study. There appears to be hypokinesis of the apical anteroseptal region and apex. Regional wall motion analysis is challenging given the limitations of the study. There appears to be severe hypokinesis to akinesis of the apical anteroseptal region and apex. No other obvious wall abnormalities can be appreciated. Left atrium, right atrium, right ventricle are normal in size with grossly preserved right ventricular systolic function. 4. No pericardial effusion. 5. Inferior vena cava not well demonstrated. CONCLUSIONS: 1. Technically difficult study. 2. No significant valvular abnormality evident. 3. Estimated left ejection fraction 30 to 35% with severe hypokinesis to akinesis of the apical anteroseptal region and apex suggested on technically difficult wall motion analysis. cc: MD Lázaro Mueller MD
[2019-07-26] MEDS: HUMULIN R SUBQ SCH ×6 (00:33→20:19)
[2019-07-26] MEDS: MORPHINE IV PRN ×2 (01:12→20:08)
[2019-07-26] MEDS: LIPOSYN 20% 250 ML IV SCH (02:24)
[2019-07-26] MEDS: OFIRMEV 1000 MG/ISOTONIC SOLN 1,000 MG/100 ML BOTTLE IV SCH ×4 (03:42→20:06)
[2019-07-26] MEDS: ZOSYN 2.25 GM in NS 50 ML IV SCH ×4 (03:42→20:18)
[2019-07-26] MEDS: DUONEB (A & A) INH SCH ×6 (03:50→23:44)
[2019-07-26] MEDS: LOVENOX SUBQ SCH (06:16)
--- NOTE | 2019-07-26 07:05 | Diag Imaging Result Doc PS360 ---
EXAM: CHEST-1 VIEW 07/26/2019 HISTORY: SOB TECHNIQUE: AP portable at 0609 COMMENT: The pulmonary edema which was present on 07/25/2019 has improved slightly and the lungs are better expanded. There is apparent subsegmental atelectasis in both lung bases. IMPRESSION: Slightly improved pulmonary edema. Electronically signed by Kieran Valdes 07/26/2019 7:02 AM
[2019-07-26 07:55] LABS: AGAP 13; ALB/GLOB RATIO 0.4; ALBUMIN 1.5 g/dL (3.5-5.0); BUN 12 mg/dL (8-22); CALCIUM 7.5 mg/dL (8.8-10.2); CHLORIDE 101 mmol/L (98-107); COSMO 273; CREATININE 0.7 mg/dL (0.5-0.9); DIRECT BILIRUBIN 0.7 mg/dL (0.00-0.20); ESTIMATED GFR > 60; GLUCOSE 81 mg/dL (70-104); MAGNESIUM 1.7 mg/dL (1.5-2.7); POTASSIUM 2.6 mmol/L (3.5-5.1); SODIUM 137 mmol/L (136-145); TCO2 23 mmol/L (25-35); TOTAL BILIRUBIN 1.07 mg/dL (0.20-1.00); TOTAL PROTEIN 4.9 g/dL (6.3-8.3)
[2019-07-26] MEDS: PEPCID IV SCH ×2 (08:29→20:08)
[2019-07-26] MEDS: SODIUM CHLORIDE 0.9% INJ SCH (08:29)
[2019-07-26] MEDS ORDERED: POTASSIUM PHOSPHATE 30 MEQ in NS 250 ML IV ONE (08:34)
[2019-07-26] MEDS ORDERED: THIAMINE 200 MG in NS 50 ML IV ONE (09:36)
[2019-07-26] MEDS: LASIX IV SCH ×2 (10:21→20:11)
--- NOTE | 2019-07-26 10:59 | PROVIDER PROGRESS NOTE ---
Progress Note Pulmonary additional note: I have seen and examine the case, reviewed the EMR, labs, latest images and other medical teams notes. Also reviewed the [employer] notes and signed necessary form(s). I have noted changes in condition if any from yesterday and did orders. Please see also signed progress sheet. Prognosis: Is uncertain for now. She is DNRI. Since yesterday, CT abd/pelvis showed pulmonary edema versus pneumonia and enteritis. will consult ID. She is on Bipap. Less acidotic and checking ABG. I reviewed notes from Dr. Boykin and discussed with Dr. Sarmiento yesterday. K was supplied and she is on lasix. Echo seen CHF, respiratory failure now compensated with Bipap, will check ABG. Post operative for SBO and adhesolysis. She is DNRI. Discussed with son yesterday. will DC NGT suction. Case was discussed with the family today. I asked medical staff credentialing coordinator about condition changes and if they have any needs in regard to today conditions. I spent 30 minutes in this process.
--- NOTE | 2019-07-26 11:18 | PROVIDER PROGRESS NOTE ---
Progress Note Dr. Heaton Progress Note/Pulmonary and or critical care We appreciated progress of care, Complications, change in diagnosis, and instructions to patient under direct supervision of Dr. Heaton. Subjective: We note the level of consciousness, bed (chair) position, family presence (if any), level of lethargy, feeling of symptoms, and changes from baseline condition/symptom. The patient is on BiPAP 12/6 70%. She is lethargic, tachycardiac and tachypneic. No fever overnight. Family at the bedside. Objective: Vital Signs: We reviewed EMR current values for Pulse rate, Blood pressure, Pulse rate, respiratory rate and Pulse oximetry. Also noted other values and trends if present (e.g. I/O, CVP). Vital Signs 07/25/19 15:06 07/25/19 15:16 07/25/19 19:25 Temperature 97.8 F Pulse Rate 122 H 125 H Respiratory Rate 39 H 40 H Blood Pressure 129/94 O2 Sat by Pulse Oximetry 96 99 99 07/25/19 20:00 07/26/19 00:00 07/26/19 04:00 Temperature 98.2 F 97.1 F L 96.7 F L Pulse Rate 134 H 125 H 120 H Respiratory Rate 41 H 50 H 47 H Blood Pressure 112/78 103/78 108/80 O2 Sat by Pulse Oximetry 95 99 07/26/19 07:26 07/26/19 08:00 07/26/19 11:26 Temperature 97.8 F Pulse Rate 117 H 117 H 118 H Respiratory Rate 45 H 44 H 47 H Blood Pressure 98/74 O2 Sat by Pulse Oximetry 100 100 07/26/19 12:00 Temperature 97.3 F L Pulse Rate 115 H Respiratory Rate 43 H Blood Pressure 100/76 O2 Sat by Pulse Oximetry 100 Intake & Output 07/25/19 07/26/19 07/26/19 19:59 07:59 19:59 Intake Total 1334 / 3672 2338 / 3672 Output Total 1770 / 3125 1355 / 3125 Balance -436 / 547 983 / 547 Intake: Intake, IV Amount 200 / 600 400 / 600 Intake, IVPB 962 / 962 Intake, Other Amount 100 / 100 Intake, IV Electrolyte Infusion 546 / 546 Intake, TPN/PPN Amount 400 / 1200 800 / 1200 Intake, Lipid Amount 88 / 264 176 / 264 Output: Output, Urine Griffith Amount 1700 / 2675 975 / 2675 Output, NG Tube 70 / 70 Output, Gastric Drainage Amount 380 / 380 Physical Examination: General: Chronically ill appearing. Lying in bed with no acute distress noted. HEENT: Trachea midline. Mucus pink and slightly dry with crust around the lip. Chest: Even and unlabored. Symmetrical excursion. Auscultation reveals diminished breathing sounds bilaterally, otherwise clear. CVS: sinus tachycardia with Regular rate and rhythm. Abdomen: Soft. Nontender. Bowel sounds present. Nondistended. Surgical incision in the abd midline is dry and clean. Extremities: Trace BUE edema. Neuro: Lethargic. Weakness present. Labs and Radiology: Reviewed available labs and radiology values available at time of EMR review. Laboratory Results 07/25/19 07/25/19 07/25/19 16:22 20:05 23:48 WBC RBC Hgb Hct MCV MCH MCHC RDW Std Deviation Plt Count MPV Immature Gran % (Auto) Neut % (Auto) Lymph % (Auto) Alfalfa % (Auto) Eos % (Auto) Baso % (Auto) Immature Gran # (Auto) Neut # (Auto) Lymph # (Auto) Alfalfa # (Auto) Eos # (Auto) Baso # (Auto) Specimen Type Sample Site pH pCO2 pO2 HCO3 Base Excess Oxyhemoglobin ABG O2 Sat (Calculated) ABG O2 Saturation ABG Carboxyhemoglobin ABG Methemoglobin Jerrod Test A-a O2 Difference Total Hemoglobin Lactate Liter Flow Blood Gas Modality Spontaneous Rate FiO2 % Inspiratory BiPAP Expiratory BiPAP Sodium Potassium Chloride Carbon Dioxide Anion Gap BUN Creatinine Estimated GFR/1.73 m2 BUN/Creatinine Ratio Glucose POC Glucose 103 109 H 123 H Calculated Osmolality Calcium Phosphorus Magnesium Total Bilirubin Direct Bilirubin AST ALT Alkaline Phosphatase [id number]-Dnujpnzgrtw Pept Total Protein Albumin Globulin Albumin/Globulin Ratio 07/26/19 07/26/19 07/26/19 03:48 05:30 05:30 WBC RBC Hgb Hct MCV MCH MCHC RDW Std Deviation Plt Count MPV Immature Gran % (Auto) Neut % (Auto) Lymph % (Auto) Alfalfa % (Auto) Eos % (Auto) Baso % (Auto) Immature Gran # (Auto) Neut # (Auto) Lymph # (Auto) Alfalfa # (Auto) Eos # (Auto) Baso # (Auto) Specimen Type Sample Site pH pCO2 pO2 HCO3 Base Excess Oxyhemoglobin ABG O2 Sat (Calculated) ABG O2 Saturation ABG Carboxyhemoglobin ABG Methemoglobin Jerrod Test A-a O2 Difference Total Hemoglobin Lactate Liter Flow Blood Gas Modality Spontaneous Rate FiO2 % Inspiratory BiPAP Expiratory BiPAP Sodium 137 Potassium 2.6 L Chloride 101 Carbon Dioxide 23 L Anion Gap 13 BUN 12 D Creatinine 0.7 Estimated GFR/1.73 m2 > 60 BUN/Creatinine Ratio 17 Glucose 81 POC Glucose 132 H Calculated Osmolality 273 Calcium 7.5 L Phosphorus 2.0 L Magnesium 1.7 Total Bilirubin 1.07 H Direct Bilirubin 0.70 H AST 65 H ALT 35 Alkaline Phosphatase 139 H Lqv-[id number]-Hxjolwpygok Pept Total Protein 4.9 L Albumin 1.5 L Globulin 3.4 Albumin/Globulin Ratio 0.4 07/26/19 07/26/19 07/26/19 05:30 09:00 11:38 WBC 5.91 RBC 3.06 L Hgb 9.6 L Hct 27.7 L MCV 90.5 MCH 31.4 H MCHC 34.7 RDW Std Deviation 14.2 Plt Count 240 MPV 11.8 H Immature Gran % (Auto) 4.6 H Neut % (Auto) 77.2 H Lymph % (Auto) 14.2 L Alfalfa % (Auto) 3.0 Eos % (Auto) 0.8 Baso % (Auto) 0.2 Immature Gran # (Auto) 0.27 H Neut # (Auto) 4.56 Lymph # (Auto) 0.84 L Alfalfa # (Auto) 0.18 Eos # (Auto) 0.05 Baso # (Auto) 0.01 Specimen Type Sample Site pH pCO2 pO2 HCO3 Base Excess Oxyhemoglobin ABG O2 Sat (Calculated) ABG O2 Saturation ABG Carboxyhemoglobin ABG Methemoglobin Jerrod Test A-a O2 Difference Total Hemoglobin Lactate Liter Flow Blood Gas Modality Spontaneous Rate FiO2 % Inspiratory BiPAP Expiratory BiPAP Sodium Potassium Chloride Carbon Dioxide Anion Gap BUN Creatinine Estimated GFR/1.73 m2 BUN/Creatinine Ratio Glucose POC Glucose 87 Calculated Osmolality Calcium Phosphorus Magnesium Total Bilirubin Direct Bilirubin AST ALT Alkaline Phosphatase [id number]-N-Tpvibslcyea Pept 1236 H Total Protein Albumin Globulin Albumin/Globulin Ratio 07/26/19 07/26/19 11:45 12:16 WBC RBC Hgb Hct MCV MCH MCHC RDW Std Deviation Plt Count MPV Immature Gran % (Auto) Neut % (Auto) Lymph % (Auto) Alfalfa % (Auto) Eos % (Auto) Baso % (Auto) Immature Gran # (Auto) Neut # (Auto) Lymph # (Auto) Alfalfa # (Auto) Eos # (Auto) Baso # (Auto) Specimen Type ARTERIAL Sample Site R BRACHIAL pH 7.49 H pCO2 29 L pO2 102 H HCO3 24.5 Base Excess -0.5 Oxyhemoglobin 96.0 ABG O2 Sat (Calculated) 14.7 L ABG O2 Saturation 99.1 ABG Carboxyhemoglobin 1.10 ABG Methemoglobin 2.0 H Jerrod Test NO A-a O2 Difference 361.0 Total Hemoglobin 10.8 L Lactate 2.40 H Liter Flow 15.0 Blood Gas Modality BI PAP Spontaneous Rate 12 FiO2 % 70.0 Inspiratory BiPAP 12.0 Expiratory BiPAP 6.0 Sodium Potassium Chloride Carbon Dioxide Anion Gap BUN Creatinine Estimated GFR/1.73 m2 BUN/Creatinine Ratio Glucose POC Glucose 112 H Calculated Osmolality Calcium Phosphorus Magnesium Total Bilirubin Direct Bilirubin AST ALT Alkaline Phosphatase Swm-D-Paxtfijqbjo Pept Total Protein Albumin Globulin Albumin/Globulin Ratio Dr. Heaton evaluated and additional note below. Evaluation time in minutes: 33 m inutes. Assessment: DNR1 Postoperative respiratory failure, extubated on 07/23/2019 Possible pneumonia with dense bilateral infiltrates and lower lobe atelectasis Pleural effusions, moderate on the left and small on the right Small bowel obstruction s/p laparotomy and adhesolysis, Day 4 Congestive heart failure with estimated left EF 30-35% with severe hypokinesis to akinesis of the apical anteroseptal region and apex Small ascites and body wall edema Plan: Continue current treatment and supportive care per admitting and other teams on the case. Antibiotics. Bronchodilators. Appropriate DVT and GI prophylaxis. Physical Therapy Start ID consult Holding NGT suctioning Input was appreciated from Admitting MD and other teams on the case. See additional notes by Dr. Heaton.
[2019-07-26 11:46] LABS: BASO# 0.01 X1000 (0.0-0.2); BASO% 0.2 % (0.0-0.8); EOS# 0.05 X1000 (0.0-0.7); EOS% 0.8 % (0.0-10.0); HEMATOCRIT 27.7 % (37.0-47.0); HEMOGLOBIN 9.6 g/dL (12.0-16.0); IMM GRAN# 0.27 X1000 (0.0-0.04); IMM GRAN% 4.6 % (0.0-0.5); LYMPH# 0.84 X1000 (1.2-3.4); LYMPH% 14.2 % (20.5-51.1); MCH 31.4 PG (27-31); MCHC 34.7 g/dL (33-37); MCV 90.5 FL (81-99); MONO# 0.18 X1000 (0.11-0.59); MPV 11.8 FL (7.4-10.4); NEUT# 4.56 X1000 (1.4-6.5); NEUT% 77.2 % (42.2-75.2); PLT 240 X1000 (130-400); RBC 3.06 XMIL (4.2-5.4); RDW 14.2 % (11.5-14.5); WBC 5.91 X1000 (4.8-10.8)
[2019-07-26 11:53] LABS: ALLEN TEST NO; BE -0.5 mmoll (-3.0-3.0); BLOOD TYPE ARTERIAL; HCO3-(ACT) 24.5 mmoll (20.0-26.0); O2(CT) 14.7 mL/dL (15.0-23.0); PCO2(98.6) 29 mmHg (35-45); PO2(98.6) 102 mmHg (60-100); SAMPLE BLOOD; SAO2 99.1 % (95.0-100.0); SRATE 12 BPM; THB 10.8 g/dL (11.5-17.4); pH(98.6) 7.49 (7.35-7.45)
[2019-07-26 11:54] LABS: MODALITY BI PAP
[2019-07-26] MEDS: HALDOL IV PRN (14:31)
--- NOTE | 2019-07-26 15:27 | CONSULTATION ---
DATE OF CONSULTATION: 07/26/2019 IMPRESSION: 1. Respiratory failure. 2. Pulmonary edema. 3. Recent pneumonia possibly aspiration related. 4. Cardiomyopathy with left ventricular ejection fraction of 30 to 35 percent on difficult echocardiogram. 5. Recent laparotomy with lysis of adhesions for small bowel obstruction. 6. Altered mental status. 7. Severe decline in nutritional status with significant weight loss and hypoalbuminemia with a history of very poor oral intake for more than 6 months. 8. Hypertension. 9. Hyperlipidemia. RECOMMENDATIONS: 1. Somewhat agree with diuresis. 2. Continue nutritional support as permitted by clinical situation. I will add thiamine supplementation as well. 3. Given patient's clinical course, if she improves we will consider further cardiovascular evaluation. HISTORY: This 69-year-old, female with past history of hypertension, hyperlipidemia, and progressive decline over the past year or so was recently admitted with altered mental status, as well as inability to eat. She is not presently able to give history given her respiratory failure. She is presently on BiPAP and not very responsive. She has had some tendency for confusion over the past year. She has stopped eating much. She has had progressive weight loss. It is noteworthy that her son many years ago, and her grandson this past summer in December. She has been unwilling to have much in the way of medical testing and reluctant to take medications. Oral intake has progressively declined. She was unable to eat at all and was brought to the emergency room for evaluation. Abdominal CT scan reportedly showed evidence of high-grade small bowel obstruction. She is placed on NG suction. She ultimately required laparotomy with lysis of adhesions. She has had respiratory failure postoperatively. She was intubated, but has been extubated for several days and is currently on BiPAP. According to family present at bedside, there is no history of known cardiac disease or chest pain. PAST MEDICAL HISTORY: 1. Progressive decline from a mental/cognitive standpoint. 2. Weight loss and progressive tendency towards failure to thrive. 3. Hypertension. 4. Hyperlipidemia. PAST SURGICAL HISTORY: Unspecified cataract surgery, hysterectomy and gallbladder surgery. ALLERGIES: She is allergic or intolerant to sulfa. MEDICATIONS: As listed. SOCIAL HISTORY: She is single. She had been living with her grandson, who from a drug overdose back in December of 2018. She has history of significant alcohol use in the past, but does not currently use alcohol. She is a nonsmoker. Her son at a young age. FAMILY HISTORY: Negative for premature coronary disease. REVIEW OF SYSTEMS: Not obtainable given patient's altered mental status and respiratory failure. PHYSICAL EXAM: General: This is a thin elderly female on BiPAP breathing 40 times a minute. Vital Signs: Blood pressure 108/80, heart rate 115 to 120 and regular with ECG monitor showing sinus tachycardia. Oxygen saturation 100% on BiPAP. HEENT Exam: Atraumatic, normocephalic. Mucous membranes moist. Neck: Supple without discernible jugular venous distention. Carotid bruits cannot be appreciated. Chest: Auscultation of the chest reveals coarse breath sounds bilaterally. Cardiac Exam: Reveals a regular tachycardia without appreciable murmur or gallop. Abdomen: Soft. Bowel sounds audible. Extremities: Warm without edema. X-RAYS: Recent 12 lead EKG demonstrates sinus rhythm and anteroseptal infarct of undetermined age. Tracing also demonstrates low voltage in limb leads. Recent echocardiography is very difficult for interpretation. Study indicates left ventricular ejection fraction of 30 to 35 percent. Anteroapical wall motion abnormality noted. LABORATORY DATA: Includes sodium 137, potassium 2.6, chloride 101, carbon dioxide 23. BUN 12, creatinine 0.7, glucose 81, magnesium 1.7, calcium 7.5, albumin 1.5. cc: MD Lázaro Mueller MD
--- NOTE | 2019-07-26 18:55 | PROGRESS NOTE ---
DATE: 07/26/2019 SUBJECTIVE: The patient had a positive fluid balance yesterday. She has continued to struggle to breathe and is back on BiPAP. She has been sedated. I spoke at length with the patient's family and with Dr. Sarmiento, and reviewed notes with all consultants at the time of this dictation. OBJECTIVE: Vital signs: At the time of my examination, 97.8, 117, 44, 98/74, 100% O2 saturation on BiPAP at 70% oxygen flow. General: The patient is on BiPAP. She is resting comfortably. Her respiratory rate is not as high as listed on the vital signs. Overall, the patient has reasonable air movement. There is no wheezing. Cardiovascular: Irregular. Tachycardia at 116 beats per minute at the time of my examination. Abdomen: Scarce bowel sounds. Her abdomen is soft. She does not react as if in pain. Extremities: Only show peripheral edema in the dependent areas and in her hands. Neuropsychiatric: Unable to be evaluated. LABORATORY: ABG is 7.49, 29 CO2, 102 O2 level, and 99% saturated on 70% FiO2. White cell count is 5.9, hemoglobin is 9.6, hematocrit 27.7. Chemistry showed potassium of 2.6, phosphorus of 2.0, magnesium 1.7. ASSESSMENT AND PLAN: 1. Respiratory status is still our primary concern. She is back on BiPAP. Echocardiogram yesterday showed LV function with a 35% ejection fraction. There was some asymmetrical wall motion as well. This could be multifactorial. Either way, she will likely need more aggressive diuresis and management of fluid balance. 2. The patient will get K-Phos 3 times today, in addition to Lasix. 3. Status post laparotomy with lysis of adhesions. CT scan did not show any problems at the surgical site. She did have some mild enteritis, but no obvious free air perforation or gut. 4. The patient's neurological status is difficult to assess. 5. Do not resuscitate level 1. 6. Again, I spoke with the family in regard to their wishes. In addition to the consideration for her acute recovery from her respiratory failure at the present time, long-term consideration for nutritional aspects should also be made. At present time, she is on some TPN which is providing some nutrition for her. cc: Lázaro Boykin MD
--- NOTE | 2019-07-26 19:53 | INFECTIOUS DISEASE CONSULT REP ---
DATE: 07/26/2019 CONCLUSION: The patient has a left lower lobe pneumonia. She previously had a right lung pneumonia, which was cleared from the upper lobe. The patient on CT scan was felt to have enteritis. RECOMMENDATIONS: I agree with treating the patient with Zosyn. DISCUSSION: The patient is on a BiPAP mask. She is unable to give a history. The patient came in with what was a small bowel obstruction. Dr. Sarmiento took her to surgery and did lysis of adhesions. He also put in a right-sided internal jugular venous catheter. CT scan of the abdomen showed pulmonary infiltrates and enteritis. The patient's CBC shows a white count of 5910, hemoglobin 9.6, platelet count 240,000. Blood gases show a pH of 7.49, a pO2 of 102, and a pCO2 of 29. Creatinine is 0.7 GFR is greater than 60. Alkaline phosphatase is 139. As mentioned above, the patient is unable to provide a history. She was originally brought to the hospital with an altered mental status. PAST MEDICAL HISTORY: Positive for weight loss, noncompliance with medical treatment, hyperlipidemia, and history of hypertension. PAST SURGICAL HISTORY: Positive for cataract surgery, hysterectomy, and gallbladder surgery. SOCIAL HISTORY: The patient is single. She does not smoke cigarettes or drink alcoholic beverages. FAMILY HISTORY: Said to be noncontributory. PHYSICAL EXAMINATION: Vital signs: Temperature is 96.7 degrees, pulse 118, respirations 47. Blood pressure is 108/80. The patient weighs 110 pounds. General: This is an ill-appearing elderly female. She is in no acute distress. She is wearing a BiPAP mask at this time. Head, eyes, ears, nose, and throat: As I mentioned above, patient has a BiPAP mask on. I did not see any drainage from her nose or ears. Neck: No stiffness, and it did not seem to cause the patient any pain. Thorax: Patient has an increased AP diameter of the chest. Lungs: Clear to auscultation. Cardiovascular: Heart rate is rapid and regular. Abdomen: Soft. The midline incision is intact. There is no bleeding, and there is no purulence. Neurologic: The patient did not respond to verbal stimuli to do things like moving her extremities or opening her mouth. There is no tremor. Thank you for the consult. cc: MD Lázaro Ray MD
[2019-07-26] MEDS: [UNRECOGNIZED DRUG - NUTRITION] IV SCH ×6 (20:38)
[2019-07-27] MEDS: HALDOL IV PRN ×3 (00:27→23:33)
[2019-07-27] MEDS: LIPOSYN 20% 250 ML IV SCH ×2 (01:36→18:07)
[2019-07-27] MEDS: HUMULIN R SUBQ SCH ×6 (01:40→20:14)
[2019-07-27] MEDS: ZOSYN 2.25 GM in NS 50 ML IV SCH ×5 (03:09→20:20)
[2019-07-27] MEDS: OFIRMEV 1000 MG/ISOTONIC SOLN 1,000 MG/100 ML BOTTLE IV SCH ×5 (03:09→20:20)
[2019-07-27] MEDS ORDERED: D50W SYRINGE ONE (03:33)
[2019-07-27] MEDS: DUONEB (A & A) INH SCH ×6 (03:51→22:29)
[2019-07-27] MEDS: MORPHINE IV PRN ×2 (04:47→18:06)
[2019-07-27 04:54] LABS: ALLEN TEST YES; BLOOD TYPE ARTERIAL; HCO3-(ACT) 23.3 mmoll (20.0-26.0); METHB 1.4 % (0.0-1.5); O2(CT) 11.9 mL/dL (15.0-23.0); O2HB 94.7 % (95.0-99.0); PCO2(98.6) 28 mmHg (35-45); PO2(98.6) 72 mmHg (60-100); SAMPLE BLOOD; SAO2 97.7 % (95.0-100.0); THB 8.9 g/dL (11.5-17.4); pH(98.6) 7.48 (7.35-7.45)
[2019-07-27 04:55] LABS: MODALITY HIGH FLOW NASAL CAN
[2019-07-27] MEDS: LOVENOX SUBQ SCH (05:00)
[2019-07-27 06:01] LABS: ALB/GLOB RATIO 0.5; ALBUMIN 1.4 g/dL (3.5-5.0); CALCIUM 7.5 mg/dL (8.8-10.2); CREATININE 1.2 mg/dL (0.5-0.9); DIRECT BILIRUBIN 0.7 mg/dL (0.00-0.20); MAGNESIUM 1.7 mg/dL (1.5-2.7); PHOSPHORUS 2.5 mg/dL (2.7-4.5); POTASSIUM 2.7 mmol/L (3.5-5.1); TOTAL BILIRUBIN 0.98 mg/dL (0.20-1.00); TOTAL PROTEIN 4.5 g/dL (6.3-8.3)
--- NOTE | 2019-07-27 06:36 | Diag Imaging Result Doc PS360 ---
EXAM: CHEST-1 VIEW HISTORY: SOB TECHNIQUE: Single view COMPARISON: 07/26/2019 FINDINGS: No change in the right jugular line or nasogastric tube. Poor inspiratory effort. There are dense bilateral infiltrates. There is a small left pleural effusion. No cardiomegaly. IMPRESSION: No interval improvement Electronically signed by Peter Matthews 07/27/2019 6:34 AM
[2019-07-27] MEDS: PEPCID IV SCH ×2 (07:56→09:19)
[2019-07-27] MEDS: SODIUM CHLORIDE 0.9% INJ SCH ×2 (07:56→19:10)
[2019-07-27] MEDS: THIAMINE 100 MG in NS 50 ML IV SCH (08:02)
--- NOTE | 2019-07-27 08:06 | PROVIDER PROGRESS NOTE ---
Progress Note Pulmonary additional note: I have seen and examine the case, reviewed the EMR, labs, latest images and other medical teams notes. Also reviewed the [employer] notes and signed necessary form(s). I have noted changes in condition if any from yesterday and did orders. Please see also signed progress sheet. Since yesterday, NG suction was stopped and she is less acidotic. She is tolerating high flow cannula with satisfactory oxyegnation. Looks more alert and a cousin is at bedside. Prognosis: Is uncertain for now. She is DNRI. I reviewed notes from Dr. Boykin and ID. I discussed with Dr. Morejon yesterday.. K was supplied and she is on lasix. Echo seen, CHF, troponins were negative earlier. CHF, respiratory failure now compensated with High flow cannula. Post operative for SBO and adhesolysis. She is DNRI. Discussed with family yesterday. Discussed with Dr. Sarmiento today. I asked staff psychiatrist about condition changes and if they have any needs in regard to today conditions. I spent 35 minutes in this process.
[2019-07-27] MEDS ORDERED: MAGNESIUM SULFATE 2 GM/S.W.I. 2 GM/50 ML IVPB IV ONE (08:35)
[2019-07-27] MEDS: POTASSIUM PHOSPHATE 30 MEQ in NS 250 ML IV SCH ×3 (09:46→20:20)
--- NOTE | 2019-07-27 10:01 | PROGRESS NOTE ---
DATE: 07/27/2019 SUBJECTIVE: Ms. Yves Robert remains in the ICU. She is on high-flow nasal cannula. A chest x- ray still shows bilateral infiltrates without any change. A blood gas shows a base deficit of 2. Her lactate is 2.60. She remains mostly sedated. Her heart rate is up today, it is 120. Blood pressure is 99/69, O2 saturation 97%. Her BUN and creatinine are elevated since yesterday. BUN is 22, creatinine is 1.2. She has received some IV Lasix. Her abdomen is mostly soft. It does not appear to be abnormally tender. She has an NG tube in but that has been clamped since yesterday about mid day with no nausea or vomiting. I think we ought to use that NG tube for nutrition as early as tomorrow. She is receiving TPN now for nutrition. cc: MD Lázaro Hyman MD
--- NOTE | 2019-07-27 10:04 | PROGRESS NOTE ---
DATE: 07/27/2019 SUBJECTIVE: The patient is asleep in bed. She has just been cleaned up by the staff, and getting reattached to multiple electrical leads and IVs. There were no reported incidents overnight. It appears that she received Haldol and morphine last night. OBJECTIVE: Vital Signs: Temperature 97.6, pulse 115, respirations 39, blood pressure 99/69, on 50% high-flow nasal humidified. Fluid balance positive 547 for the 24-hour period. General: The patient is asleep. She does not respond to stimuli. She is tachypneic, but does not appear to be grossly struggling, other than the rate of her respirations. Cardiovascular: Irregular tachycardia with occasional ectopy. Lungs: A shallow respiratory cycle. She is not grossly wheezing, but is tachypneic. Abdomen: Scarce bowel sounds. She is not distended. Extremities: The patient is emaciated. She does have swelling in her upper extremity soft tissue and in the dependent areas of the sacrum. Neurologic: Impossible to evaluate at this point. LABORATORY DATA: Potassium 2.7, BUN 22, creatinine 1.2. Phosphorus 2.5. Hemoglobin is 9.6, hematocrit 27.7. ABG: PH 7.48, pCO2 of 28, PO2 of 72, and 98% saturated on 45% high-flow nasal cannula with humidification. ASSESSMENT AND PLAN: 1. Respiratory status is very tenuous. She remains tachypneic and with a respiratory alkalosis, reduced ejection fraction, and parameters are generally consistent with systolic congestive heart failure. We diuresed her aggressively yesterday, and yet she was still in positive fluid balance. Her creatinine is increased from 0.8, which seemed like an appropriate level given her size, to 1.2. I have held her Lasix this morning. 2. We are going to replete the patient with K-Phos 3 times today. We will give some Lasix this afternoon to try and equilibrate her fluid balance. 3. Status post laparotomy for lysis of adhesions. The use of morphine by the staff as a sedative is likely necessary, but I am sure it is not helping in regard to maintenance of bowel function. We see no obvious signs of obstruction recurring, and in fact, her CT scan showed some mild enteritis. Will continue to follow this, but may need to use other medications for sedation going down the line. 4. Neurological status is difficult to assess. 5. There is no family present today. 6. DO NOT RESUSCITATE level 1. 7. Dr. Morejon was consulted yesterday, and felt that she had a left upper lobe pneumonia, and he agreed with the use of Zosyn. cc: Lázaro Boykin MD
[2019-07-27] MEDS ORDERED: D50W SYRINGE IV ONE (13:11)
--- NOTE | 2019-07-27 13:53 | PROVIDER PROGRESS NOTE ---
Progress Note Dr. Heaton Progress Note/Pulmonary and or critical care We appreciated progress of care, Complications, change in diagnosis, and instructions to patient under direct supervision of Dr. Heaton. Subjective: We note the level of consciousness, bed (chair) position, family presence (if any), level of lethargy, feeling of symptoms, and changes from baseline condition/symptom. The patient is on HFNC 50%. She is still lethargic, tachycardiac and tachypneic. No fever overnight. Family at the bedside. Objective: Vital Signs: We reviewed EMR current values for Pulse rate, Blood pressure, Pulse rate, respiratory rate and Pulse oximetry. Also noted other values and trends if present (e.g. I/O, CVP). Vital Signs 07/26/19 19:55 07/26/19 20:00 07/26/19 23:45 Temperature 98.2 F Pulse Rate 121 H 117 H Respiratory Rate 45 H 40 H Blood Pressure 111/85 O2 Sat by Pulse Oximetry 100 100 100 07/27/19 00:00 07/27/19 03:52 07/27/19 04:00 Temperature 97.6 F 97.6 F Pulse Rate 133 H 115 H Respiratory Rate 44 H 39 H Blood Pressure 119/76 99/69 O2 Sat by Pulse Oximetry 98 97 99 07/27/19 07:30 07/27/19 08:00 07/27/19 10:42 Temperature 97.1 F L Pulse Rate 120 H 124 H 119 H Respiratory Rate 43 H 46 H 39 H Blood Pressure 111/71 O2 Sat by Pulse Oximetry 97 98 07/27/19 12:00 07/27/19 15:53 Temperature 97.1 F L Pulse Rate 119 H 121 H Respiratory Rate 41 H 50 H Blood Pressure 119/85 O2 Sat by Pulse Oximetry 97 Intake & Output 07/26/19 07/27/19 07/27/19 19:59 07:59 19:59 Intake Total 1036 / 2612 1576 / 2612 688 / 688 Output Total 450 / 775 325 / 775 150 / 150 Balance 586 / 1837 1251 / 1837 538 / 538 Intake: Intake, IV Amount 200 / 400 200 / 400 Intake, IVPB 100 / 500 400 / 500 200 / 200 Intake, IV Electrolyte Infusion 248 / 248 Intake, TPN/PPN Amount 400 / 1200 800 / 1200 400 / 400 Intake, Lipid Amount 88 / 264 176 / 264 88 / 88 Output: Output, Urine Griffith Amount 200 / 525 325 / 525 150 / 150 Output, NG Tube 250 / 250 Physical Examination: General: Chronically ill appearing. Lying in bed with some respiratory distress noted. HEENT: Trachea midline. Mucus pink and slightly dry with crust around the lip. Chest: Tachypnea. Increased work of breathing, but no a&p mechanic muscle use. Symmetrical excursion. Auscultation reveals diminished breathing sounds and early inspiratory crackles bilaterally. CVS: sinus tachycardia with Regular rate and rhythm. Abdomen: Soft. Bowel sounds present. Nondistended. Surgical incision in the abd midline is dry and clean. Extremities: BUE edema 1+. Neuro: Lethargic. Labs and Radiology: Reviewed available labs and radiology values available at time of EMR review. Laboratory Results 07/26/19 07/26/19 07/26/19 17:06 19:29 23:06 Specimen Type Sample Site pH pCO2 pO2 HCO3 Base Excess Oxyhemoglobin ABG O2 Sat (Calculated) ABG O2 Saturation ABG Carboxyhemoglobin ABG Methemoglobin Jerrod Test A-a O2 Difference Total Hemoglobin Lactate Liter Flow Blood Gas Modality FiO2 % Sodium Potassium Chloride Carbon Dioxide Anion Gap BUN Creatinine Estimated GFR/1.73 m2 BUN/Creatinine Ratio Glucose POC Glucose 89 81 72 Calculated Osmolality Calcium Phosphorus Magnesium Total Bilirubin Direct Bilirubin AST ALT Alkaline Phosphatase Total Protein Albumin Globulin Albumin/Globulin Ratio 07/27/19 07/27/19 07/27/19 03:24 03:30 03:30 Specimen Type Sample Site pH pCO2 pO2 HCO3 Base Excess Oxyhemoglobin ABG O2 Sat (Calculated) ABG O2 Saturation ABG Carboxyhemoglobin ABG Methemoglobin Jerrod Test A-a O2 Difference Total Hemoglobin Lactate Liter Flow Blood Gas Modality FiO2 % Sodium 140 Potassium 2.7 L Chloride 103 Carbon Dioxide 23 L Anion Gap 14 BUN 22 D Creatinine 1.2 H Estimated GFR/1.73 m2 54 BUN/Creatinine Ratio 18 Glucose 44 L POC Glucose 42 L Calculated Osmolality 280 Calcium 7.5 L Phosphorus 2.5 L Magnesium 1.7 Total Bilirubin 0.98 Direct Bilirubin 0.70 H AST 62 H ALT 35 Alkaline Phosphatase 126 H Total Protein 4.5 L Albumin 1.4 L Globulin 3.1 Albumin/Globulin Ratio 0.5 01/09/20 01/09/20 01/09/20 03:47 04:46 04:53 Specimen Type ARTERIAL Sample Site R RADIAL pH 7.48 H pCO2 28 L pO2 72 HCO3 23.3 Base Excess -2.0 Oxyhemoglobin 94.7 L ABG O2 Sat (Calculated) 11.9 L ABG O2 Saturation 97.7 ABG Carboxyhemoglobin 1.70 ABG Methemoglobin 1.4 Jerrod Test YES A-a O2 Difference 214.0 Total Hemoglobin 8.9 L Lactate 2.60 H Liter Flow 50.0 Blood Gas Modality HIGH FLOW NASAL CAN FiO2 % 45.0 Sodium Potassium Chloride Carbon Dioxide Anion Gap BUN Creatinine Estimated GFR/1.73 m2 BUN/Creatinine Ratio Glucose POC Glucose 288 H D 141 H D Calculated Osmolality Calcium Phosphorus Magnesium Total Bilirubin Direct Bilirubin AST ALT Alkaline Phosphatase Total Protein Albumin Globulin Albumin/Globulin Ratio 07/27/19 07/27/19 07/27/19 06:38 07:56 12:57 Specimen Type Sample Site pH pCO2 pO2 HCO3 Base Excess Oxyhemoglobin ABG O2 Sat (Calculated) ABG O2 Saturation ABG Carboxyhemoglobin ABG Methemoglobin Jerrod Test A-a O2 Difference Total Hemoglobin Lactate Liter Flow Blood Gas Modality FiO2 % Sodium Potassium Chloride Carbon Dioxide Anion Gap BUN Creatinine Estimated GFR/1.73 m2 BUN/Creatinine Ratio Glucose POC Glucose 106 H 106 H 62 L Calculated Osmolality Calcium Phosphorus Magnesium Total Bilirubin Direct Bilirubin AST ALT Alkaline Phosphatase Total Protein Albumin Globulin Albumin/Globulin Ratio Dr. Heaton evaluated and additional note below. Evaluation time in minutes: 34 minutes. Assessment: DNR1 Postoperative respiratory failure, extubated on 07/23/2019 Possible pneumonia with dense bilateral infiltrates and lower lobe atelectasis Pleural effusions, moderate on the left and small on the right Small bowel obstruction s/p laparotomy and adhesolysis, Day 4 Enteritis Congestive heart failure with estimated left EF 30-35% with severe hypokinesis to akinesis of the apical anteroseptal region and apex Small ascites and body wall edema Plan: Continue current treatment and supportive care per admitting and other teams on the case. Antibiotics. Bronchodilators. Appropriate DVT and GI prophylaxis. Start ID consult Input was appreciated from Admitting MD and other teams on the case. See additional notes by Dr. Heaton.
[2019-07-27] MEDS: ZYVOX 600 MG/D5W 600 MG/300 ML IVPB IV SCH (15:28)
[2019-07-27] MEDS ORDERED: ALBUMIN 25% IV ONE (18:39)
[2019-07-27] MEDS: PROTONIX IV SCH (19:10)
[2019-07-27] MEDS: [UNRECOGNIZED DRUG - NUTRITION] IV SCH ×6 (20:20)
--- NOTE | 2019-07-27 21:28 | INFECTIOUS DISEASE PROGRESS NO ---
DATE: 07/27/2019 PRESENT ILLNESS: The patient has a bilateral pneumonia. She is status post surgery consisting of lysis of adhesions. The patient's pneumonia may be secondary to aspiration. MEDICATIONS: The patient is on Zosyn as a single agent. PHYSICAL EXAMINATION: Vital Signs: Temperature is 97.1 degrees, pulse 119, respirations 41, blood pressure 119/85. General: This is a chronically ill-appearing, elderly female. She seems to be slightly dyspneic. Head/eyes/ears/nose/throat: No drainage was noted from the nose or ears. I could not get a good look into her mouth. She is wearing an oxygen apparatus that supplies oxygen through the nostrils. Neck: No pain with movement. The patient has a right- sided internal jugular vein catheter in place. Lungs: Clear to auscultation. Thorax: The patient has an increased AP diameter of the chest. Cardiovascular: Heart rate is regular and rapid. Abdomen: Soft. It was not tender to light palpation. The midline incision is intact. Neurologic: The patient is lying in bed. She did not respond to verbal stimuli. She does not have a tremor. LABS AND X-RAY: Chest x-ray shows bilateral infiltrates. Blood gases show a pH of 7.48, a pCO2 of 72, and a PO2 of 28. Creatinine is 1.2. GFR is 54. AST is 62. Alkaline phosphatase is 126. ASSESSMENT AND PLAN: The patient has what appears to be bilateral pneumonia which could be due to aspiration. I am going to continue Zosyn and also add IV Zyvox. I also ordered a procalcitonin level. COMORBIDITIES: The patient is elderly and she had what was thought to be a bowel obstruction, which caused her to aspirate and cause her pneumonia. The patient also appears to be somewhat malnourished. She has only 111 pounds. cc: MD Lázaro Ray MD [facility]
--- NOTE | 2019-07-27 21:55 | PROGRESS NOTE ---
DATE: 07/27/2019 SUBJECTIVE: The patient continues awake but is nonverbal to verbal stimuli. She continues tachypneic. She shakes her head no in response to query on whether she is having any pain. OBJECTIVE: Blood pressure 118/77, heart rate 120 with ECG monitor showing sinus tachycardia, respiratory rate 45, oxygen saturation 97% on high-flow oxygen per nasal cannula. There is no significant jugular venous distention. Chest: Clear to auscultation anteriorly. Cardiac Exam: Reveals a regular tachycardia without appreciable murmur or gallop. Extremities: Demonstrate mild edema in both feet and hands. LABORATORY DATA: Includes a sodium of 140, potassium 2.7, chloride 103, carbon dioxide 23, BUN 22, creatinine 1.2. Glucose 116. IMPRESSION: 1. Respiratory failure, probably multifactorial. 2. Pulmonary edema suggested by recent chest x-ray. Patient developing prerenal azotemia. 3. Recent pneumonia, possible aspiration-related. 4. Cardiomyopathy with left ventricular ejection fraction of 30-35% on difficult echocardiogram. 5. Recent laparotomy with lysis of adhesions for small-bowel obstruction. 6. Altered mental status. 7. Severe decline in nutritional status with significant weight loss and hypoalbuminemia. 8. Hypertension. 9. Hyperlipidemia. RECOMMENDATIONS: 1. Reduce Lasix to once daily. 2. Continue nutritional support. Hopefully she can start tube feeds soon. 3. Supplement albumin. 4. Patient's condition discussed with her son at bedside. cc: MD Lázaro Mueller MD
[2019-07-27] MEDS: D50W SYRINGE IV PRN (23:24)
[2019-07-28] MEDS: HUMULIN R SUBQ SCH ×6 (00:09→21:27)
[2019-07-28] MEDS: MORPHINE IV PRN ×4 (00:15→22:05)
[2019-07-28] MEDS: OFIRMEV 1000 MG/ISOTONIC SOLN 1,000 MG/100 ML BOTTLE IV SCH ×4 (03:36→20:47)
[2019-07-28] MEDS: ZYVOX 600 MG/D5W 600 MG/300 ML IVPB IV SCH ×2 (03:36→15:32)
[2019-07-28] MEDS: ZOSYN 2.25 GM in NS 50 ML IV SCH ×4 (03:36→20:48)
[2019-07-28] MEDS: DUONEB (A & A) INH SCH ×6 (03:53→23:22)
[2019-07-28] MEDS: D50W SYRINGE IV PRN ×3 (04:15→23:48)
[2019-07-28 04:29] LABS: ALLEN TEST YES; BE -2.4 mmoll (-3.0-3.0); BLOOD TYPE ARTERIAL; METHB 1.3 % (0.0-1.5); O2HB 94.8 % (95.0-99.0); PCO2(98.6) 22 mmHg (35-45); PO2(98.6) 66 mmHg (60-100); SAMPLE BLOOD; THB 8.2 g/dL (11.5-17.4); pH(98.6) 7.55 (7.35-7.45)
[2019-07-28 04:31] LABS: MODALITY HIGH FLOW NASAL CAN
[2019-07-28] MEDS: LOVENOX SUBQ SCH (05:02)
[2019-07-28 05:19] LABS: ALBUMIN 2.2 g/dL (3.5-5.0); DIRECT BILIRUBIN 0.8 mg/dL (0.00-0.20); TOTAL BILIRUBIN 1.13 mg/dL (0.20-1.00); TOTAL PROTEIN 4.5 g/dL (6.3-8.3)
[2019-07-28 05:24] LABS: CALCIUM 7.7 mg/dL (8.8-10.2); CREATININE 1.4 mg/dL (0.5-0.9); MAGNESIUM 2.2 mg/dL (1.5-2.7); PHOSPHORUS 5.3 mg/dL (2.7-4.5); POTASSIUM 2.8 mmol/L (3.5-5.1)
[2019-07-28 07:11] LABS: BASO# 0.01 X1000 (0.0-0.2); BASO% 0.2 % (0.0-0.8); EOS# 0.13 X1000 (0.0-0.7); EOS% 2.2 % (0.0-10.0); HEMATOCRIT 20.9 % (37.0-47.0); HEMOGLOBIN 7.1 g/dL (12.0-16.0); IMM GRAN% 3.4 % (0.0-0.5); LYMPH# 0.95 X1000 (1.2-3.4); MCH 31.4 PG (27-31); MCV 92.5 FL (81-99); MONO# 0.15 X1000 (0.11-0.59); MONO% 2.5 % (1.7-9.3); MPV 12.1 FL (7.4-10.4); NEUT% 75.7 % (42.2-75.2); PLT 207 X1000 (130-400); RBC 2.26 XMIL (4.2-5.4); RDW 14.3 % (11.5-14.5); WBC 5.94 X1000 (4.8-10.8)
--- NOTE | 2019-07-28 07:14 | Diag Imaging Result Doc PS360 ---
EXAM: CHEST-1 VIEW 07/28/2019 HISTORY: SOB TECHNIQUE: AP portable at 0520 COMMENT: There is an NG tube with its tip in the fundus of the stomach. There is looped into the antrum. There is a right internal jugular central venous catheter with its tip in the right atrium. There is interstitial and alveolar opacity bilaterally. There has been no appreciable change since 07/27/2019. IMPRESSION: Pulmonary edema plus minus pneumonia. Electronically signed by Kieran Valdes 07/28/2019 7:11 AM
[2019-07-28] MEDS: THIAMINE 100 MG in NS 50 ML IV SCH (08:47)
[2019-07-28] MEDS: LASIX IV SCH (08:47)
[2019-07-28] MEDS ORDERED: POTASSIUM CHLORIDE 20% LIQUID PO ONE ×2 (09:20→13:00)
--- NOTE | 2019-07-28 11:52 | PROGRESS NOTE ---
DATE: 07/28/2019 SUBJECTIVE: The patient is not responsive. She is on high-flow nasal cannula. There were no family members present today. I spoke with the patient's nurse about ongoing issues with the lab work this morning. OBJECTIVE: Vital signs: Temperature 98.6 degrees, pulse rate was 115 at the time my examination, respiratory rate was 36 to 40, blood pressure 109/68. Fluid balance is positive 1837. PHYSICAL EXAMINATION: General: The patient is unresponsive. She is tachypneic. Lungs: Show reasonable air movement. Cardiovascular: Regular tachycardia with rare ectopy. Abdomen: The abdomen is soft. Bowel sounds are present, albeit scarce. NG tube is draining bilious material. LABORATORY: White cell count 5.9, hemoglobin 7.1, hematocrit 20.9. ABG: The pH is 7.55, pCO2 is 22, PO2 66, oxygen saturations 98%. Serum electrolytes show potassium 2.8, chloride 101, BUN 29, creatinine 1.4, phosphorus is 5.3. ASSESSMENT AND PLAN: 1. The patient's respiratory status is very tenuous. Her x-ray looks no better. She remains tachypneic with a primary severe respiratory alkalosis. The patient has reduced ejection fraction. Despite decreasing her diuretics, her BUN and creatinine continue to climb. 2. The patient's electrolyte abnormalities will be repleted according to Dr. Heaton's orders. 3. Status post laparotomy for lysis of adhesion. Dr. Sarmiento has written for tube feeds today. 4. Neurological status is difficult to assess. 5. There is no family present today. 6. Do not resuscitate level 1. 7. Dr. Morejon' changed antibiotics. The patient again has a large volume positive fluid balance, which may be contributing to her relative anemia. Her physical exam shows signs of fluid overload. In review of her ins and outs on her charts, the patient's piggybacks and TPN are the vast majority of her positive fluid balance; with the institution of tube feeds, this may change somewhat. We should probably try and minimize piggybacks as well. cc: Lázaro Boykin MD
--- NOTE | 2019-07-28 15:39 | PROGRESS NOTE ---
DATE: 07/28/2019 SUBJECTIVE: Ms. Robert is now 1 week status post exploratory laparotomy with lysis of adhesions for a small bowel obstruction. She has been hospitalized in the ICU after surgery because of pulmonary issues. She has been extubated and she is now on high-flow nasal cannula O2. But she does have elevated respiratory rate. She seems sedated. Her abdomen is slightly distended but not tightly so. She has had a CT scan this week which suggested intra-abdominally was satisfactory the oral dye did get to her colon. Her NG tube has been clamped the last 2 days and she has tolerated that so I feel we need to transition from TPN to tube feedings using the NG tube. Her midline incision is intact with retention sutures. There was no evidence of infection. Her last white blood cell count was normal. She is anemic with a hematocrit of 21%. DIAGNOSTIC DATA: BUN and creatinine are 29 and 1.4 liver function tests were slightly elevated. Her lactate is normal. Base deficit 2. Chest x-ray shows interstitial and alveolar opacities bilaterally, pulmonary edema plus or minus pneumonia. PLAN: We will try to transition from IV nutrition tube NG tube feeding. cc: MD Lázaro Hyman MD
[2019-07-28] MEDS: LIPOSYN 20% 250 ML IV SCH (16:03)
[2019-07-28] MEDS: PROTONIX IV SCH (17:01)
[2019-07-28] MEDS: HALDOL IV PRN (17:01)
--- NOTE | 2019-07-28 17:03 | INFECTIOUS DISEASE PROGRESS NO ---
DATE: 07/28/2019 PRESENT ILLNESS: The patient has bilateral pulmonary infiltrates which could be due to pulmonary edema and/or pneumonia. The patient may have aspirated and this could be the cause of her presumed pneumonia. MEDICATIONS: This is day 13 of treatment with Zosyn and yesterday Zyvox was started so that it means that is day 1 of treatment with that agent. PHYSICAL EXAMINATION: Vital Signs: Temperature is 98.6 degrees, pulse 113, respirations 43, blood pressure 109/68. General: This is a chronically ill appearing elderly female. She has a decreased level of consciousness. Head, eyes, ears, nose and throat: No drainage noted from the nose or ears. She does have an oxygen mask on. Neck: No stiffness. The patient has a right- sided internal jugular venous catheter in place. The site is not purulent or bleeding. Lungs: Clear to auscultation. Cardiovascular: Heart rate is regular and rapid. Abdomen: Soft. It does not appear to be tender. The patient's incision is intact. Neurologic: As mentioned above, the patient is obtunded. She did not respond to verbal stimuli. She does not have a tremor. LAB AND X-RAY: Chest x-ray shows presence of pulmonary edema and/or pneumonia is stable. The creatinine is 1.4. GFR is 45. The blood gases show a pH of 7.55, a PO2 of 66, and a pCO2 of 22. CBC shows a white count of 5940, hemoglobin 7.1, platelet count 207,000. Creatinine is 1.4. GFR is 45. ASSESSMENT AND PLAN: Patient has bilateral pneumonia which could be due to aspiration. There may be a component of pulmonary venous congestion also. My plan is to continue with Zosyn and Zyvox currently, and also I am waiting for the procalcitonin level to come back. COMORBIDITIES: The patient is elderly. She is status post surgery and she is malnourished. cc: MD Lázaro Ray MD [facility]
[2019-07-28] MEDS ORDERED: [UNRECOGNIZED DRUG - NUTRITION] IV SCH ×7 (18:00)
[2019-07-28] MEDS ORDERED: ALBUMIN 25% IV ONE ×2 (18:37→21:00)
[2019-07-28] MEDS ORDERED: LANOXIN IV ONE ×2 (18:40→21:00)
--- NOTE | 2019-07-28 19:26 | PROGRESS NOTE ---
DATE: 07/28/2019 SUBJECTIVE: Patient continues unresponsive to verbal stimuli. She continues on high-flow nasal cannula. OBJECTIVE: Blood pressure 115/75, heart rate 115 and regular with ECG monitor showing sinus tachycardia, respiratory rate 35. Oxygen saturation 98 to 100 percent on high-flow oxygen per nasal cannula.Neck: Jugular venous distention cannot be appreciated. Respiratory: Auscultation of the chest reveals chest to be clear bilaterally anteriorly. Cardiac Exam: Reveals a regular tachycardia without appreciable murmur or gallop. Extremities: Demonstrate mild distal edema. LABORATORY DATA: Includes a white blood cell count of 5.94, hematocrit 20.9, hemoglobin 7.1, platelet count 207,000. Sodium 137, potassium 4.2, chloride 101, carbon dioxide 19, BUN 19, creatinine 1.4, glucose 186, albumin 2.2. IMPRESSION: 1. Respiratory failure, probably multifactorial. 2. Pulmonary edema, suggested by recent chest x-rays. Patient's BUN and creatinine mildly increased, although patient's intake and output over the last several days are positive indicating that diuresis has not been achieved. Suspect the possibility of cardiorenal syndrome. 3. Recent pneumonia, possibly aspiration related. 4. Cardiomyopathy with left ejection fraction of 30-35%. Difficult echocardiography study. 5. Anemia, significant. 6. Recent laparotomy with lysis of adhesions for small bowel obstruction. 7. Altered mental status. 8. Severe impairment in nutritional status. 9. Hypertension. 10. Hyperlipidemia. RECOMMENDATIONS: 1. Suspect possible emerging cardiorenal syndrome. We will give additional IV Lasix this evening. 2. Supplement albumin further intravenously. 3. Initiate low-dose beta alicia. 4. Add digoxin intravenously and monitor levels. 5. May consider intravenous inotrope agent. However, this may have significant tendency to aggravate her tachycardia. For now, we will hold off. cc: MD Lázaro Mueller MD
--- NOTE | 2019-07-28 20:19 | PULMONOLOGY PROGRESS NOTE ---
DATE: 07/28/2019 SUBJECTIVE: The patient is on high-flow oxygen. She will open her eyes to her name. OBJECTIVE: Vital Signs: She has been afebrile for the last 24 hours. Blood pressure 113/70, heart rate 113, respiratory rate 38, oxygen saturation 100% on 40% high-flow oxygen. HEENT: Pupils are equal. Oropharynx appears clear. Neck: Supple. Chest: Reveals crackles/coarse breath sounds bilaterally. Cardiac: Increased rate. Abdomen: Soft with diminished bowel sounds. Extremities: Trace to 1+ peripheral edema. LABORATORIES: Chest x-ray reveals bilateral infiltrates diffusely without improvement from yesterday. Arterial blood gas reveals a pH of 7.55, pCO2 of 22, pO2 of 66. White blood count 5.94, hemoglobin 7.1, platelet count 207,000. Sodium 137, potassium 2.8, chloride 101, bicarbonate 19, BUN 29, creatinine 1.4. IMPRESSION: A 69-year-old with: 1. Bilateral pneumonia. 2. Acute hypoxemic respiratory failure. 3. Status post laparotomy for lysis of adhesions. 4. Dementia, with diffuse cerebral atrophy. 5. Overall poor prognosis. End of life discussions have been held with the family, and patient's current Code status will allow her to have a natural . PLAN: 1. Continue high flow oxygen. 2. Continue antibiotics per Infectious Disease. 3. Continue total parenteral nutrition. 4. Overall prognosis appears guarded to poor. cc: MD Lázaro Rivas MD
[2019-07-28] MEDS: LOPRESSOR NG SCH (20:49)
[2019-07-28] MEDS ORDERED: LASIX IV ONE (21:00)
[2019-07-29] MEDS: HUMULIN R SUBQ SCH ×6 (00:08→20:49)
[2019-07-29] MEDS: DUONEB (A & A) INH SCH ×6 (03:01→23:20)
[2019-07-29] MEDS: OFIRMEV 1000 MG/ISOTONIC SOLN 1,000 MG/100 ML BOTTLE IV SCH ×4 (03:12→20:47)
[2019-07-29] MEDS: ZYVOX 600 MG/D5W 600 MG/300 ML IVPB IV SCH ×2 (03:13→15:17)
[2019-07-29] MEDS: D50W SYRINGE IV PRN (03:13)
[2019-07-29] MEDS: ZOSYN 2.25 GM in NS 50 ML IV SCH ×4 (03:13→20:48)
[2019-07-29] MEDS: HALDOL IV PRN (04:08)
[2019-07-29 05:03] LABS: ALLEN TEST YES; BE -4.1 mmoll (-3.0-3.0); BLOOD TYPE ARTERIAL; HCO3-(ACT) 21.7 mmoll (20.0-26.0); METHB 0.9 % (0.0-1.5); O2(CT) 9.2 mL/dL (15.0-23.0); O2HB 94.1 % (95.0-99.0); PCO2(98.6) 27 mmHg (35-45); PO2(98.6) 63 mmHg (60-100); SAMPLE BLOOD; THB 6.9 g/dL (11.5-17.4); pH(98.6) 7.46 (7.35-7.45)
[2019-07-29 05:04] LABS: MODALITY HIGH FLOW NASAL CAN
[2019-07-29] MEDS: LOVENOX SUBQ SCH (06:17)
[2019-07-29 06:39] LABS: ALB/GLOB RATIO 1.1; ALBUMIN 2.7 g/dL (3.5-5.0); CALCIUM 8.3 mg/dL (8.8-10.2); CREATININE 1.3 mg/dL (0.5-0.9); DIRECT BILIRUBIN 0.9 mg/dL (0.00-0.20); PHOSPHORUS 3.2 mg/dL (2.7-4.5); TOTAL BILIRUBIN 1.5 mg/dL (0.20-1.00); TOTAL PROTEIN 5.1 g/dL (6.3-8.3)
--- NOTE | 2019-07-29 08:02 | Diag Imaging Result Doc PS360 ---
EXAM: CHEST-1 VIEW INDICATION: SOB TECHNIQUE: One view COMPARISON: 07/28/2019 FINDINGS: Support tubes and lines are in stable positions. Interstitial and airspace opacities throughout both lungs with relative sparing of the left lung base indicating pulmonary edema +/- pneumonia is unchanged. No new consolidation is identified. Cardiac silhouette is stable. IMPRESSION: Stable chest. Electronically signed by José Miguel Ballesteros 07/29/2019 7:59 AM
[2019-07-29] MEDS: LOPRESSOR NG SCH ×2 (08:56→20:48)
[2019-07-29] MEDS: THIAMINE 100 MG in NS 50 ML IV SCH (08:56)
[2019-07-29] MEDS: LASIX IV SCH (08:56)
[2019-07-29] MEDS: LANOXIN IV SCH (08:56)
[2019-07-29 13:46] LABS: BASO# 0.03 X1000 (0.0-0.2); BASO% 0.3 % (0.0-0.8); EOS# 0.25 X1000 (0.0-0.7); EOS% 2.6 % (0.0-10.0); HEMATOCRIT 22.3 % (37.0-47.0); HEMOGLOBIN 7.2 g/dL (12.0-16.0); IMM GRAN# 0.14 X1000 (0.0-0.04); IMM GRAN% 1.4 % (0.0-0.5); LYMPH# 1.12 X1000 (1.2-3.4); LYMPH% 11.5 % (20.5-51.1); MCH 31.9 PG (27-31); MCHC 32.3 g/dL (33-37); MCV 98.7 FL (81-99); MONO# 0.29 X1000 (0.11-0.59); MPV 11.9 FL (7.4-10.4); NEUT# 7.95 X1000 (1.4-6.5); NEUT% 81.2 % (42.2-75.2); PLT 212 X1000 (130-400); RBC 2.26 XMIL (4.2-5.4); RDW 14.5 % (11.5-14.5); WBC 9.78 X1000 (4.8-10.8)
--- NOTE | 2019-07-29 13:57 | Diag Imaging Result Doc PS360 ---
EXAM: KUB ABDOMEN 07/29/2019 HISTORY: distention TECHNIQUE: KUB COMMENT: There are surgical skin clips in the midline. Compared to 07/20/2019 the degree of gaseous dilatation of small bowel loops seen on the previous study has markedly improved. There is some stool in the rectum which was present previously. The stomach is not distended. IMPRESSION: Improved ileus and/or small bowel obstruction. Electronically signed by Kieran Valdes 07/29/2019 1:55 PM
--- NOTE | 2019-07-29 14:01 | GENERAL SURGERY PROGRESS NOTE ---
DATE: 07/29/2019 SUBJECTIVE: Nursing staff reports no major issues. She seems to be tolerating her tube feeds at goal 30. She still has TPN going and she still has a tachycardia in the 130s but her blood pressure seems to be stable. Her ABG this morning was reviewed and remainder of labs reviewed. From a surgical point of view continue current treatment. Hopefully we can transition her off of TPN since she is tolerating her tube feeds at goal. cc: MD Lázaro Reid MD
[2019-07-29 14:29] LABS: EOS 2 % (1-10); LARGE PLATELETS OCCASIONAL; LYMPHS 8 % (21-51); MONO 3 % (1-9); SEGS 84 % (42-75)
[2019-07-29] MEDS: D10W 1,000 ML IV SCH (15:17)
[2019-07-29] MEDS: MORPHINE IV PRN (15:28)
[2019-07-29] MEDS ORDERED: D50W 500 ML IV SCH (16:00)
--- NOTE | 2019-07-29 16:55 | PROGRESS NOTE ---
DATE: 07/29/2019 SUBJECTIVE: Patient's chart was reviewed. In summary, patient presented to the emergency department on 07/15/2019 secondary to mental status changes. Upon evaluation, CT scan of the abdomen revealed a high-grade small-bowel obstruction and possible infiltrate in the lower lobes of the lungs. Dr. Perez was consulted. Conservative measures were recommended. Ultimately, on 07/21/2019 patient required exploratory laparotomy with lysis of adhesions. A right internal jugular central venous line was provided. Postoperative course unfortunately has been complicated by respiratory failure, pneumonia, volume overload and persistent mental status changes. This morning upon my arrival, patient remains nonverbal. She is tachypneic, but does not appear to be uncomfortable. Tube feeds have been started. Thus far, she is tolerating well without evidence of high residuals. There has been no evidence of fevers or chills. She does not demonstrate evidence of abdominal discomfort. She remains tachycardic. OBJECTIVE: T-max 98.8 degrees, heart rate 108 to 132, respirations 20 to 47, blood pressure 98 to 137 over 61 to 89, O2 saturation 96 to 100 percent on high-flow nasal cannula.General: Chronically ill appearing, tachypneic. Cardiovascular: Tachycardic. No significant murmurs, rubs, or gallops. Pulmonary: Crackles at bilateral bases. Adequate air movement. Abdomen: Soft. I cannot elicit significant tenderness. Bowel sounds are decreased. Extremities: No significant clubbing, cyanosis or edema. Dermatologic: Evaluation reveals no evidence of rash. LABORATORY DATA: The pH 7.46, pCO2 27, PO2 63, bicarbonate 21.7. Sodium 138, potassium 4.0, chloride 100, bicarb 19, BUN 30, creatinine 1.3, glucose 108, calcium 8.3, magnesium 2.0, phosphorus 3.2, total bilirubin 1.50, total protein 5.1, albumin 2.7, alkaline phosphatase 296, AST 123, ALT 71. ASSESSMENT AND PLAN: 1. Small bowel obstruction. Patient is postoperative day #8 exploratory laparotomy with lysis of adhesions. She has experienced resolution of her postoperative ileus. Tube feeds have been initiated. We will continue postoperative management per Dr. Sarmiento's discretion. 2. Respiratory failure-this likely is a consequence of pneumonia and volume overload state. I appreciate Dr. Morejon' and Dr. Tamayo's consultation. We will continue IV antibiotic intervention per Dr. Morejon. We will continue diuresis and optimize cardiac medications per Dr. Tamayo. At present time, her pulmonary status appears reasonably stable. We will follow this closely. 3. Pneumonia-the patient is currently being treated with Zosyn and Zyvox therapy. We will continue pulmonary toilet and aspiration precautions. As above, I appreciate Dr. Morejon' consultation. 4. Volume overload-patient has a left ventricular ejection fraction of 30 to 35 percent. The patient is being treated with optimized cardiac medications per Dr. Tamayo. We will defer management to his discretion. As above, pulmonary status remains reasonably stable. 5. Elevated liver enzymes-patient's bilirubin, alkaline phosphatase and transaminases have increased over the course of the last 2 days. Question is raised as to the etiology. The patient's gallbladder is not present per CT scan. This certainly could represent congestive disease. I am also concerned this may be medication associated. It appears digoxin, linezolid, and total parenteral nutrition all were started around this time. I suspect TPN will be discontinued in the near future if she continues to tolerate tube feedings. If her levels continue to rise, we will consider abdominal ultrasound. We will recheck levels in the morning as well as pancreatic enzymes. 6. Alteration of mental status-unfortunately, patient is nonverbal on evaluation today. Per Dr. Boykin's note, it appears this has been ongoing at home. I called patient's family and discussed her case in detail with her aunt and mother. Each appear to understand the gravity of her condition. I expressed my concern with the severity of her illness, but assured them that we will continue optimizing her medical management and placing her in a position for recovery if possible. 7. Disposition. At this point, patient continues to require jail care in the ICU setting. She remains in a very serious condition. I discussed my findings and plan with the current nursing staff. cc: MD Lázaro Sorenson MD MTDD
[2019-07-29] MEDS: PROTONIX IV SCH (17:50)
[2019-07-29] MEDS: SODIUM CHLORIDE 0.9% INJ SCH (17:50)
--- NOTE | 2019-07-29 22:06 | PULMONOLOGY PROGRESS NOTE ---
DATE: 07/29/2019 SUBJECTIVE: The patient has her eyes closed. She is slightly tachypneic. She does respond to voice, but will not open her eyes or follow commands. OBJECTIVE: Vital Signs: The patient has been afebrile for the last 24 hours. Blood pressure 107/60, heart rate 108, respiratory rate 40, oxygen saturation 100%. HEENT: Pupils are equal and reactive. Oropharynx appears clear. Neck: Supple. Chest: Reveals crackles bilaterally. Cardiac: S1, S2. Abdomen: Soft with diminished bowel sounds. Extremities: Reveal trace to 1+ peripheral edema. LABORATORIES: Chest x-ray reveals increased parenchymal markings bilaterally with some sparing of the left base. Sodium 138, potassium 4.0, chloride 100, bicarbonate 19, BUN 30, creatinine 1.3, glucose 108. White blood count 5.94, hemoglobin 7.1, platelet count 207,000. Arterial blood gas reveals a pH of 7.46, pCO2 of 27, pO2 of 63. IMPRESSION: A 69-year-old with: 1. Bilateral pneumonia. 2. Acute hypoxemic respiratory failure. 3. Dementia with diffuse cerebral atrophy on MRI. 4. Status post laparotomy for lysis of adhesions. 5. Overall prognosis is guarded to poor. PLAN: 1. Continue high-flow oxygen. 2. Continue antibiotics. 3. Continue TPN. 4. Follow up chest x-ray and KUB tomorrow. 5. Agree with current resuscitation status which will allow patient to have a natural if she were to during this hospital stay. cc: MD Lázaro Rivas MD
[2019-07-30] MEDS: HUMULIN R SUBQ SCH ×3 (00:06→08:09)
[2019-07-30] MEDS: ZYVOX 600 MG/D5W 600 MG/300 ML IVPB IV SCH ×2 (03:21→16:15)
[2019-07-30] MEDS: OFIRMEV 1000 MG/ISOTONIC SOLN 1,000 MG/100 ML BOTTLE IV SCH ×2 (03:21→08:22)
[2019-07-30] MEDS: ZOSYN 2.25 GM in NS 50 ML IV SCH ×2 (03:22→08:23)
[2019-07-30] MEDS: DUONEB (A & A) INH SCH ×6 (03:35→23:12)
[2019-07-30] MEDS: LOVENOX SUBQ SCH (05:00)
[2019-07-30 05:26] LABS: ALLEN TEST YES; BE -3.2 mmoll (-3.0-3.0); BLOOD TYPE ARTERIAL; HCO3-(ACT) 22.4 mmoll (20.0-26.0); O2HB 95.4 % (95.0-99.0); PCO2(98.6) 32 mmHg (35-45); PO2(98.6) 80 mmHg (60-100); SAMPLE BLOOD; SAO2 98.8 % (95.0-100.0); THB 8.1 g/dL (11.5-17.4); pH(98.6) 7.42 (7.35-7.45)
[2019-07-30 05:29] LABS: MODALITY CANNULA
[2019-07-30 05:47] LABS: BASO# 0.03 X1000 (0.0-0.2); BASO% 0.3 % (0.0-0.8); EOS# 0.26 X1000 (0.0-0.7); EOS% 2.6 % (0.0-10.0); HEMATOCRIT 23.4 % (37.0-47.0); HEMOGLOBIN 7.2 g/dL (12.0-16.0); IMM GRAN# 0.18 X1000 (0.0-0.04); IMM GRAN% 1.8 % (0.0-0.5); LYMPH# 1.01 X1000 (1.2-3.4); LYMPH% 10.3 % (20.5-51.1); MCH 31.3 PG (27-31); MCHC 30.8 g/dL (33-37); MCV 101.7 FL (81-99); MONO# 0.31 X1000 (0.11-0.59); MONO% 3.2 % (1.7-9.3); MPV 11.9 FL (7.4-10.4); NEUT# 8.05 X1000 (1.4-6.5); NEUT% 81.8 % (42.2-75.2); PLT 205 X1000 (130-400); RDW 14.4 % (11.5-14.5); WBC 9.84 X1000 (4.8-10.8)
[2019-07-30 06:02] LABS: ALB/GLOB RATIO 0.7; DIRECT BILIRUBIN 0.6 mg/dL (0.00-0.20); TOTAL BILIRUBIN 0.98 mg/dL (0.20-1.00); TOTAL PROTEIN 4.7 g/dL (6.3-8.3)
[2019-07-30 06:05] LABS: AMYLASE 23 U/L (20-200); LIPASE 39 U/L (13-60)
[2019-07-30 06:42] LABS: CALCIUM 7.9 mg/dL (8.8-10.2); CREATININE 1.2 mg/dL (0.5-0.9); PHOSPHORUS 3.3 mg/dL (2.7-4.5); POTASSIUM 4.2 mmol/L (3.5-5.1)
--- NOTE | 2019-07-30 07:46 | Diag Imaging Result Doc PS360 ---
EXAM: CHEST-1 VIEW HISTORY: SOB TECHNIQUE: Single view COMPARISON: 07/29/2019 FINDINGS: No change in the right jugular line or the nasogastric tube. There are bilateral dense infiltrates similar to the prior study in the left lung, but with worsening on the right. Small pleural effusions. No cardiomegaly. IMPRESSION: Interval worsening Electronically signed by Peter Matthews 07/30/2019 7:44 AM
[2019-07-30] MEDS: LASIX IV SCH (08:22)
[2019-07-30] MEDS: LANOXIN IV SCH (08:22)
[2019-07-30] MEDS: LOPRESSOR NG SCH ×2 (08:23→20:07)
[2019-07-30] MEDS: THIAMINE 100 MG in NS 50 ML IV SCH (08:23)
[2019-07-30 08:43] LABS: PREALBUMIN 10.9 mg/dL (20-40)
--- NOTE | 2019-07-30 09:51 | GENERAL SURGERY PROGRESS NOTE ---
DATE: 07/30/2019 The patient seems to be doing about the same. We did transition her off of her TPN. She is tolerating her tube feeds. At this point, she seems to be doing about the same. We will continue to monitor her. cc: MD Lázaro Reid MD
--- NOTE | 2019-07-30 10:52 | INFECTIOUS DISEASE PROGRESS NO ---
DATE: 07/30/2019 PRESENT ILLNESS: The patient has bilateral pulmonary infiltrates and on x-ray, the right lung infiltrate is worsening. The patient's procalcitonin level is 153, which is very elevated and implies that it is very likely that the patient does have a bacterial pneumonia. MEDICATIONS: This is day 15 of treatment with Zosyn and day 3 of treatment with Zyvox. PHYSICAL EXAMINATION: Vital Signs: Temperature is 98.4 degrees, pulse 118, respirations 31, blood pressure is 108/67. General: This is a chronically ill-appearing, elderly female. I was unable to arouse her this morning with verbal stimuli. There is no drainage from the nose or the ears. Neck: No apparent pain with passive movement of the neck. The patient does have a right- sided internal jugular venous catheter in place. That site is not bleeding and it is not purulent. Lungs: Clear to auscultation. Cardiovascular: Heart rate is regular. Abdomen: Soft and nontender to light palpation. The patient's incision is intact. Neurologic: As mentioned above, the patient is obtunded. There is no tremor. LAB AND X-RAY: The patient's CBC shows a white count of 9840, hemoglobin 7.2, platelet count is 205,000. Blood gases show a pH of 7.42, a PO2 of 80, and a pCO2 of 32. Creatinine is 1.2. GFR is 54. Alkaline phosphatase is 481. Procalcitonin is 153. Chest x-ray shows bilateral infiltrates with worsening on the right lung infiltrate. ASSESSMENT AND PLAN: The patient has bilateral pneumonia which could be due to aspiration. My plan is to continue Zyvox and discontinue Zosyn and start the patient on meropenem. COMORBIDITIES: The patient is elderly and she is status post abdominal surgery. She also appears malnourished. cc: MD Lázaro Ray MD MTDD
[2019-07-30] MEDS: MERREM 1 GM in NS 50 ML IV SCH ×2 (10:54→17:40)
[2019-07-30] MEDS: D10W 1,000 ML IV SCH (11:31)
--- NOTE | 2019-07-30 12:23 | PULMONOLOGY PROGRESS NOTE ---
DATE: 07/30/2019 SUBJECTIVE: The patient is resting comfortably. Work of breathing appears less than yesterday. She does not respond when I call her name. OBJECTIVE: Vital Signs: The patient has been afebrile for the last 24 hours, blood pressure 108/67, heart rate 112, respiratory rate 31, oxygen saturation 100%. HEENT: Pupils are equal and reactive. Oropharynx appears clear. Neck: Supple. Chest: Shallow breath sounds with occasional rhonchi. Cardiac: Increased rate. S1, S2. Abdomen: Soft with positive bowel sounds. Extremities: Trace edema. IMAGING: Chest x-ray reveals bilateral infiltrates with small effusions and slight progression compared to 07/29/2019. IMPRESSION: A 69-year-old with: 1. Bilateral pneumonia. 2. Acute hypoxemic respiratory failure. 3. Dementia with diffuse cerebral atrophy on MRI. 4. Protein calorie malnutrition. 5. Status post lysis of adhesions. PLAN: 1. Continue Zosyn and Zyvox as outlined by Dr. Zackary Morejon. 2. Will attempt a small diuretic trial today. 3. Continue tube feeds in the direction of General Surgery. 4. Prognosis remains guarded. cc: MD Lázaro Rivas MD
[2019-07-30] MEDS ORDERED: OFIRMEV 1000 MG/ISOTONIC SOLN 1,000 MG/100 ML BOTTLE IV PRN (13:25)
[2019-07-30] MEDS ORDERED: LASIX IV ONE (14:00)
--- NOTE | 2019-07-30 14:03 | PROGRESS NOTE ---
DATE: 07/30/2019 SUBJECTIVE: Over the course of the last 24 hours, patient's condition has been largely unchanged. Yesterday afternoon, after multiple attempts with interaction, family was present and patient requested to do a word find puzzle. Nurse assisted her with this but after approximately 1 hour, no further interaction was able to be elicited. This afternoon, upon my arrival, family is at bedside. Once again, she would not respond to my verbal request. She would not squeeze either hand. The patient's family states that she occasionally behaves in a similar manner secondary to being "stubborn." Per family report, she had been interactive with her several minutes prior. There has been no evidence of fevers, chills, nausea, vomiting, shortness of breath, or chest discomfort over the course of the last 24 hours. Thus far, she has tolerated tube feedings well. OBJECTIVE: T-max 98.4 degrees, heart rate 87 to 120, respirations 25 to 33, blood pressure 98 to 127 over 61 to 89.General: Ill-appearing. No acute distress. Cardiovascular: Regular rate and rhythm. No significant murmurs, rubs, or gallops. Pulmonary: Minimal crackles at bilateral bases. Adequate air movement. Abdomen: Soft, nontender, nondistended. Decreased bowel sounds. Extremities: No significant clubbing or cyanosis. Trace to 1+ lower extremity edema bilaterally. Dermatologic: Evaluation reveals no evidence of rash. LABORATORY DATA: White blood cell count 9.84, hemoglobin 7.2, hematocrit 23.4, platelet count is 205,000. Sodium 134, potassium 4.2, chloride 100, bicarb 18, BUN 32, creatinine 1.2, glucose 170, calcium 7.9, magnesium 2.0, phosphorus 3.3, total bilirubin 0.98, total protein 4.7, albumin 2.0, alkaline phosphatase 481, AST 132, ALT 105, amylase 23, lipase 39. ASSESSMENT AND PLAN: 1. Small bowel obstruction-patient is postoperative day #9 exploratory laparotomy with lysis of adhesions. The patient's postoperative ileus clinically has resolved. Thus far, she is tolerating tube feeds and having regular bowel movements. We will follow clinically. 2. Respiratory failure-this likely is a consequence of pneumonia and volume overload state. We will treat each of these per Dr. Morejon and Dr. Tamayo's consultation as described below. We will continue aspiration precautions. 3. Pneumonia-patient's procalcitonin returned elevated suggesting underlying bacterial infection. She currently is being treated with Zosyn and Zyvox therapy. Per Dr. Morejon' note this morning, he plans to discontinue Zosyn and transitioned to meropenem. We will continue pulmonary toilet. We will continue pulmonary recommendations per Dr. Ayala/Dr. Heaton. We will remain aware that Zyvox may be contributing to elevated liver enzymes. 4. Volume overload-left ventricular ejection fraction is documented at 30 to 35 percent. We will continue optimized medical management and diuresis per Dr. Tamayo. Clinically, she is slightly improved from yesterday. 5. Elevated liver enzymes-patient's total bilirubin, alkaline phosphatase, and transaminases increased over the course of the last 3 days. While this could represent congestive disease, I am more concerned this likely is secondary to a toxin. The medications/interventions started around this time include digoxin, linezolid and total parental nutrition. Total parental nutrition will be discontinued today. Digoxin level will be evaluated in the morning. Zosyn has been discontinued per Dr. Morejon, however I do not expect this is the culprit. We will recheck levels in the a.m. Should levels remained elevated, we will plan to further discuss with Dr. Morejon the possibility that linezolid is the etiology. We will also consider checking an abdominal ultrasound at that time. Also of note, scheduled IV Tylenol has been discontinued and transitioned to as needed. 6. Alteration of mental status-as above, patient is nonverbal with me today. Her family, however, suggest that she has been interactive with them. For now, we will continue supportive care. 7. Prognosis-I discussed the severity of her current illness with family members present including a daughter, sister, and granddaughter. Each voiced good understanding with my concern. We will continue to work towards optimizing her medical intervention to place her at a position for recovery if possible. 8. Disposition. At this point, patient continues to require [facility] care in a hospital setting. We will plan discharge once appropriate. cc: MD Lázaro Sorenson MD
[2019-07-30] MEDS: HUMALOG SUBQ SCH ×2 (16:14→20:08)
[2019-07-30] MEDS: MORPHINE IV PRN (16:21)
[2019-07-30] MEDS: PROTONIX IV SCH (17:52)
[2019-07-31] MEDS: HUMALOG SUBQ SCH ×6 (00:01→20:37)
[2019-07-31] MEDS: MERREM 1 GM in NS 50 ML IV SCH ×3 (01:40→17:59)
[2019-07-31] MEDS: ZYVOX 600 MG/D5W 600 MG/300 ML IVPB IV SCH ×2 (03:14→15:11)
[2019-07-31] MEDS: DUONEB (A & A) INH SCH ×6 (03:17→23:00)
[2019-07-31] MEDS: LOVENOX SUBQ SCH (05:01)
[2019-07-31 05:17] LABS: ALLEN TEST YES; BLOOD TYPE ARTERIAL; HCO3-(ACT) 22.6 mmoll (20.0-26.0); METHB 1.3 % (0.0-1.5); O2(CT) 14.5 mL/dL (15.0-23.0); O2HB 95.4 % (95.0-99.0); PCO2(98.6) 31 mmHg (35-45); PO2(98.6) 90 mmHg (60-100); SAMPLE BLOOD; SAO2 98.8 % (95.0-100.0); THB 10.7 g/dL (11.5-17.4); pH(98.6) 7.43 (7.35-7.45)
[2019-07-31 05:19] LABS: MODALITY HIGH FLOW NASAL CAN
[2019-07-31 05:45] LABS: BASO# 0.03 X1000 (0.0-0.2); BASO% 0.3 % (0.0-0.8); EOS# 0.14 X1000 (0.0-0.7); EOS% 1.5 % (0.0-10.0); HEMATOCRIT 23.8 % (37.0-47.0); HEMOGLOBIN 7.3 g/dL (12.0-16.0); IMM GRAN# 0.13 X1000 (0.0-0.04); IMM GRAN% 1.4 % (0.0-0.5); LYMPH# 0.99 X1000 (1.2-3.4); LYMPH% 10.8 % (20.5-51.1); MCH 32.3 PG (27-31); MCHC 30.7 g/dL (33-37); MCV 105.3 FL (81-99); MONO# 0.29 X1000 (0.11-0.59); MONO% 3.2 % (1.7-9.3); MPV 12.3 FL (7.4-10.4); NEUT# 7.57 X1000 (1.4-6.5); NEUT% 82.8 % (42.2-75.2); PLT 222 X1000 (130-400); RBC 2.26 XMIL (4.2-5.4); RDW 14.9 % (11.5-14.5); WBC 9.15 X1000 (4.8-10.8)
[2019-07-31 06:05] LABS: AGAP 14; ALB/GLOB RATIO 0.8; ALBUMIN 2.1 g/dL (3.5-5.0); ALKALINE PHOSPHATASE 526 U/L (32-104); BUN 36 mg/dL (8-22); CHLORIDE 99 mmol/L (98-107); COSMO 280; ESTIMATED GFR > 60; GLUCOSE 187 mg/dL (70-104); GOT 91 U/L (10-30); GPT 105 U/L (10-36); POTASSIUM 4.1 mmol/L (3.5-5.1); SODIUM 133 mmol/L (136-145); TCO2 20 mmol/L (25-35); TOTAL BILIRUBIN 0.73 mg/dL (0.20-1.00); TOTAL PROTEIN 4.8 g/dL (6.3-8.3)
--- NOTE | 2019-07-31 07:19 | Diag Imaging Result Doc PS360 ---
EXAM: CHEST-1 VIEW 07/31/2019 HISTORY: SOB TECHNIQUE: AP portable at 0520 COMMENT: The right internal jugular central venous catheter remains with its tip in the right atrium. There is an NG tube which passes below the diaphragm into the stomach with its tip in the fundus. Compared to 07/30/2019 there has been improvement in the alveolar opacity in both lungs. IMPRESSION: Improved pulmonary edema and/or pneumonia. Electronically signed by Kieran Valdes 07/31/2019 7:17 AM
--- NOTE | 2019-07-31 08:11 | PROGRESS NOTE ---
DATE: 07/31/2019 Ms. Robert is tolerating her tube feeding through an NG tube at 30 mL an hour. She is still on nasal cannula O2. She remains in bed in the ICU. Her midline incision is intact with the help of retention sutures. She is not getting TPN or lipids. We need to increase her tube feeding as long as she is tolerating it. I have asked the nurse to go from 30-50 mL an hour. She may need a rate of ultimately 60 mL an hour. She is on Vital HN which is 1.2 calories per mL. Her heart rate is 88-103, blood pressure of 97/58, O2 saturation is 100%, she is afebrile. She is on IV antibiotics, mostly for her lungs. Her white blood cell count is normal, hematocrit is 24%. BUN and creatinine are 36 and 1. PLAN: We will continue to increase her tube feeding. We need to begin increasing her activity. Physical therapy is seeing the patient. cc: MD Lázaro Hyman MD
[2019-07-31] MEDS: LOPRESSOR NG SCH ×2 (08:28→20:37)
[2019-07-31] MEDS: LASIX IV SCH (09:21)
[2019-07-31] MEDS: LANOXIN IV SCH (09:21)
--- NOTE | 2019-07-31 09:21 | INFECTIOUS DISEASE PROGRESS NO ---
DATE: 07/31/2019 PRESENT ILLNESS: The patient has bilateral pulmonary infiltrates and with the patient's procalcitonin being 153, it appears that she has a bilateral bacterial pneumonia. MEDICATIONS: This is day 4 of treatment with Zyvox and day 1 of treatment with meropenem. PHYSICAL EXAMINATION: Vital Signs: Temperature is 97.7 degrees, pulse 110, respirations 24, blood pressure 92/55. General: This is a chronically ill-appearing, elderly female. She is obtunded. She did not respond to verbal stimuli. Neck: There was no stiffness. The patient has an internal jugular venous catheter in place. The site is not bleeding or purulent Lungs: Clear to auscultation. Cardiovascular: Heart rate is regular and rapid. Abdomen: Soft and not tender to light palpation. The patient's incision is intact. Neurologic: The patient is obtunded. There is no tremor. LAB AND X-RAY: Chest x-ray shows improvement in the bilateral infiltrates. The patient's CBC shows a white count of 9,150, hemoglobin 7.3, and platelet count 222,000. Arterial blood gases show a pH of 7.43, a PO2 of 90, and a pCO2 of 31. Creatinine is 1. GFR is greater than 60. Alkaline phosphatase is 526. ASSESSMENT AND PLAN: Patient has bilateral pneumonia. The chest x-ray is improving. I am going to continue with Zyvox and meropenem. COMORBIDITIES: The patient is elderly and she has undergone abdominal surgery. She also appears to be malnourished. cc: MD Lázaro Ray MD
--- NOTE | 2019-07-31 09:48 | PROVIDER PROGRESS NOTE ---
Progress Note Pulmonary additional note: I have seen and examine the case, reviewed the EMR, labs, latest images and other medical teams notes. Also reviewed the [facility] notes and signed necessary form(s). I have noted changes in condition if any from yesterday and did orders. Please see also signed progress sheet. Since yesterday, She is stable, tolerating NGT feed and tolerating high flow cannula. Prognosis: Is Guarded for now. She is DNRI. I reviewed notes from Dr. Sarmiento. Post operative for SBO and adhesolysis. She is DNRI. CHF, respiratory failure now compensated with High flow cannula. discussed the case with her cousin. Overall physical improvement from last week. I spent 33 minutes in this process.
--- NOTE | 2019-07-31 10:33 | PROVIDER PROGRESS NOTE ---
Progress Note Dr. Heaton Progress Note/Pulmonary and or critical care We appreciated progress of care, Complications, change in diagnosis, and instructions to patient under direct supervision of Dr. Heaton. Subjective: We note the level of consciousness, bed (chair) position, family presence (if any), level of lethargy, feeling of symptoms, and changes from baseline condition/symptom. The patient is on HFNC 45% with SaO2 100%. RR 26 and BP 88/56. It appears that BP has been staying low since yesterday afternoon. She still on Lasix 40 mg BID. No fever overnight. Family at the bedside. Objective: Vital Signs: We reviewed EMR current values for Pulse rate, Blood pressure, Pulse rate, respiratory rate and Pulse oximetry. Also noted other values and trends if present (e.g. I/O, CVP). Vital Signs 07/30/19 16:00 07/30/19 19:03 07/30/19 20:00 Temperature 98.4 F 97.3 F L Pulse Rate 110 H 88 97 H Respiratory Rate 23 25 H Blood Pressure 91/63 93/64 O2 Sat by Pulse Oximetry 100 100 100 07/30/19 23:13 07/31/19 00:00 07/31/19 03:17 Temperature 98.2 F Pulse Rate 97 H 102 H 102 H Respiratory Rate 25 H 24 24 Blood Pressure 103/68 O2 Sat by Pulse Oximetry 100 07/31/19 04:00 07/31/19 07:30 07/31/19 07:55 Temperature 97.7 F 97.7 F Pulse Rate 98 H 103 H 110 H Respiratory Rate 25 H 22 24 Blood Pressure 97/58 92/55 O2 Sat by Pulse Oximetry 95 100 100 07/31/19 08:00 07/31/19 09:21 07/31/19 11:12 Temperature 97.7 F 98.3 F Pulse Rate 110 H 105 H 114 H Respiratory Rate 24 23 Blood Pressure 92/55 97/60 O2 Sat by Pulse Oximetry 100 100 07/31/19 12:22 Temperature Pulse Rate 110 H Respiratory Rate 22 Blood Pressure O2 Sat by Pulse Oximetry 100 Intake & Output 07/30/19 07/31/19 07/31/19 19:59 07:59 19:59 Intake Total 930 / 2350 1420 / 2350 Output Total 1450 / 2890 1440 / 2890 Balance -520 / -540 -20 / -540 Intake: Intake, IV Amount 350 / 350 Intake, IVPB 250 / 950 700 / 950 Intake, Tube Feeding Amount 240 / 720 480 / 720 Intake, Tube Irrigant Amount 90 / 330 240 / 330 Output: Output, Urine Griffith Amount 1450 / 2890 1440 / 2890 Other: NG/Feeding Tube Residual Check Yes & Amount Number of Bowel Movements 0 1 Bowel Movement Color and Liquid Character Brown Physical Examination: General: Chronically ill appearing. Lying in bed with some respiratory distress noted. HEENT: Trachea midline. Mucus pink and moist. Chest: Mild tachypnea. No increased work of breathing or brush maker machine muscle use. Symmetrical excursion. Auscultation reveals diminished breathing sounds and early inspiratory crackles bilaterally. CVS: sinus tachycardia with Regular rate and rhythm. Abdomen: Soft. Bowel sounds present. Nondistended. Surgical incision in the abd midline is dry and clean. Extremities: BUE edema 1+. Neuro: Lethargic. Labs and Radiology: Reviewed available labs and radiology values available at time of EMR review. Laboratory Results 07/30/19 07/30/19 07/30/19 13:46 16:16 19:48 WBC RBC Hgb Hct MCV MCH MCHC RDW Std Deviation Plt Count MPV Immature Gran % (Auto) Neut % (Auto) Lymph % (Auto) [place] % (Auto) Eos % (Auto) Baso % (Auto) Immature Gran # (Auto) Neut # (Auto) Lymph # (Auto) [place] # (Auto) Eos # (Auto) Baso # (Auto) Specimen Type Sample Site pH pCO2 pO2 HCO3 Base Excess Oxyhemoglobin ABG O2 Sat (Calculated) ABG O2 Saturation ABG Carboxyhemoglobin ABG Methemoglobin Jerrod Test A-a O2 Difference Total Hemoglobin Lactate Liter Flow Blood Gas Modality FiO2 % Sodium Potassium Chloride Carbon Dioxide Anion Gap BUN Creatinine Estimated GFR/1.73 m2 BUN/Creatinine Ratio Glucose POC Glucose 133 H 117 H 163 H Calculated Osmolality Calcium Total Bilirubin AST ALT Alkaline Phosphatase Total Protein Albumin Globulin Albumin/Globulin Ratio Digoxin 07/30/19 07/31/19 07/31/19 23:31 04:05 04:05 WBC RBC Hgb Hct MCV MCH MCHC RDW Std Deviation Plt Count MPV Immature Gran % (Auto) Neut % (Auto) Lymph % (Auto) [place] % (Auto) Eos % (Auto) Baso % (Auto) Immature Gran # (Auto) Neut # (Auto) Lymph # (Auto) [place] # (Auto) Eos # (Auto) Baso # (Auto) Specimen Type Sample Site pH pCO2 pO2 HCO3 Base Excess Oxyhemoglobin ABG O2 Sat (Calculated) ABG O2 Saturation ABG Carboxyhemoglobin ABG Methemoglobin Jerrod Test A-a O2 Difference Total Hemoglobin Lactate Liter Flow Blood Gas Modality FiO2 % Sodium 133 L Potassium 4.1 Chloride 99 Carbon Dioxide 20 L Anion Gap 14 BUN 36 H Creatinine 1.0 H Estimated GFR/1.73 m2 > 60 BUN/Creatinine Ratio 36 Glucose 187 H POC Glucose 135 H Calculated Osmolality 280 Calcium 8.0 L Total Bilirubin 0.73 AST 91 H ALT 105 H Alkaline Phosphatase 526 H Total Protein 4.8 L Albumin 2.1 L Globulin 2.7 Albumin/Globulin Ratio 0.8 Digoxin 1.7 07/31/19 07/31/19 07/31/19 04:05 04:10 05:09 WBC 9.15 RBC 2.26 L Hgb 7.3 L Hct 23.8 L MCV 105.3 H MCH 32.3 H MCHC 30.7 L RDW Std Deviation 14.9 H Plt Count 222 MPV 12.3 H Immature Gran % (Auto) 1.4 H Neut % (Auto) 82.8 H Lymph % (Auto) 10.8 L [place] % (Auto) 3.2 Eos % (Auto) 1.5 Baso % (Auto) 0.3 Immature Gran # (Auto) 0.13 H Neut # (Auto) 7.57 H Lymph # (Auto) 0.99 L Pick[place] # (Auto) 0.29 Eos # (Auto) 0.14 Baso # (Auto) 0.03 Specimen Type ARTERIAL Sample Site R RADIAL pH 7.43 pCO2 31 L pO2 90 HCO3 22.6 Base Excess -3.0 Oxyhemoglobin 95.4 ABG O2 Sat (Calculated) 14.5 L ABG O2 Saturation 98.8 ABG Carboxyhemoglobin 2.10 ABG Methemoglobin 1.3 Jerrod Test YES A-a O2 Difference 192.0 Total Hemoglobin 10.7 L Lactate 2.80 H Liter Flow 40.0 Blood Gas Modality HIGH FLOW NASAL CAN FiO2 % 45.0 Sodium Potassium Chloride Carbon Dioxide Anion Gap BUN Creatinine Estimated GFR/1.73 m2 BUN/Creatinine Ratio Glucose POC Glucose 220 H D Calculated Osmolality Calcium Total Bilirubin AST ALT Alkaline Phosphatase Total Protein Albumin Globulin Albumin/Globulin Ratio Digoxin 07/31/19 07/31/19 07/31/19 08:27 09:35 12:04 WBC RBC Hgb Hct MCV MCH MCHC RDW Std Deviation Plt Count MPV Immature Gran % (Auto) Neut % (Auto) Lymph % (Auto) [place] % (Auto) Eos % (Auto) Baso % (Auto) Immature Gran # (Auto) Neut # (Auto) Lymph # (Auto) [place] # (Auto) Eos # (Auto) Baso # (Auto) Specimen Type Sample Site pH pCO2 pO2 HCO3 Base Excess Oxyhemoglobin ABG O2 Sat (Calculated) ABG O2 Saturation ABG Carboxyhemoglobin ABG Methemoglobin Jerrod Test A-a O2 Difference Total Hemoglobin Lactate Liter Flow Blood Gas Modality FiO2 % Sodium Potassium Chloride Carbon Dioxide Anion Gap BUN Creatinine Estimated GFR/1.73 m2 BUN/Creatinine Ratio Glucose POC Glucose 81 D 102 160 H D Calculated Osmolality Calcium Total Bilirubin AST ALT Alkaline Phosphatase Total Protein Albumin Globulin Albumin/Globulin Ratio Digoxin Dr. Heaton evaluated and additional note below. Evaluation time in minutes: 31 minutes. Assessment: DNR1 Postoperative respiratory failure, extubated on 07/23/2019 Bilateral pneumonia with small pleural effusions and pulmonary edema. Improved. Small bowel obstruction s/p laparotomy and adhesolysis on 07/21/19 Congestive heart failure with estimated left EF 30-35% with severe hypokinesis to akinesis of the apical anteroseptal region and apex Small ascites and body wall edema Acute renal injury LFTs elevation Protein calorie malnutrition Dementia with diffuse cerebral atrophy Plan: Continue current treatment and supportive care per admitting and other teams on the case. Antibiotics. Bronchodilators. Appropriate DVT and GI prophylaxis. Input was appreciated from Admitting MD and other teams on the case. See additional notes by Dr. Heaton.
[2019-07-31] MEDS ORDERED: ALBUMIN 25% IV ONE (13:37)
--- NOTE | 2019-07-31 14:03 | PROGRESS NOTE ---
DATE: 07/31/2019 SUBJECTIVE: Patient described as being more interactive over the weekend. However, today she is not interactive and does not respond to verbal stimuli. OBJECTIVE: Blood pressure 97/60, heart rate 102 to 110, and regular with ECG monitor showing sinus tachycardia. There is no appreciable jugular venous distention.Chest: Clear to auscultation bilaterally. Cardiac: Reveals a regular tachycardia without appreciable murmur or gallop. There is no evidence of peripheral edema. LABORATORY DATA: White blood cell count 9.15, hematocrit 23.8, hemoglobin 7.3, and platelet count 222,000. Sodium 133, potassium 4.1, chloride 99, and carbon dioxide 20. BUN 36 and creatinine 1.0. Glucose 187. Albumin 2.1. IMPRESSION: 1. Respiratory failure, probably multifactorial. 2. Pulmonary edema on recent chest x-rays. 3. Recent pneumonia possibly aspiration related. 4. Cardiomyopathy with left ventricular ejection fraction of 30 to 35% on difficult echocardiography study. 5. Anemia. 6. Recent laparotomy with lysis of adhesions for small bowel obstruction. 7. Altered mental status. Suspect some underlying cognitive impairment. 8. Severe impairment in nutritional status. 9. Hypertension. 10. Hyperlipidemia. RECOMMENDATIONS: 1. Continue IV Lasix daily. 2. Supplement albumin intravenously. 3. Continue low-dose beta-alicia as tolerated. cc: MD Lázaro Mueller MD
--- NOTE | 2019-07-31 15:26 | PROGRESS NOTE ---
DATE: 07/31/2019 SUBJECTIVE: The patient is asleep in the bed. She did not respond to probing. In review of the patient's notes over the weekend, she had intermittent episodes where she was slightly interactive and reasonably coherent. I have not seen this myself. OBJECTIVE: Vital Signs: 97.7, 110, 24, 92/55, 100% saturated on 45% high flow. General: The patient is asleep in the bed. She is lying still with eyes closed. Her arms and hands appear edematous. Lungs: Clear to auscultation bilaterally. Cardiovascular: Regular but tachycardic. Abdomen: Shows bowel sounds are present. She has some evidence of mild ascites but is generally soft and not markedly distended. LABORATORY: White cell count 9.15, hemoglobin 7.3. ABG is 7.43, pCO2 31, PO2 90. She is 99% saturated. Chemistries show BUN at 36, creatinine 1.0. ASSESSMENT AND PLAN: 1. Status post laparotomy. Patient is stable and she is continuing tube feeds. 2. Respiratory failure postoperatively is multifactorial. Dr. Morejon is treating for pneumonia. Dr. Tamayo has been consulted for fluid balance and cardiovascular benefit. 3. Slightly elevated liver enzymes are noted. 4. The patient's mental status seems to be waxing and waning. Even in her worse state she is really not that far from her baseline. In general though, her baseline was rarely interactive but awake and alert, the only change is the fact that she sleeps so much. 5. Do not resuscitate level 1. 6. The patient continues to require high level of care just for nutritional aspects and general maintenance. cc: Lázaro Boykin MD
[2019-07-31] MEDS: PROTONIX IV SCH (17:59)
[2019-08-01] MEDS: HUMALOG SUBQ SCH ×5 (00:19→18:37)
[2019-08-01] MEDS: MERREM 1 GM in NS 50 ML IV SCH ×3 (01:40→22:28)
[2019-08-01] MEDS: ZYVOX 600 MG/D5W 600 MG/300 ML IVPB IV SCH ×2 (03:14→23:06)
[2019-08-01] MEDS: DUONEB (A & A) INH SCH ×6 (03:24→23:35)
[2019-08-01] MEDS: LOVENOX SUBQ SCH (05:06)
[2019-08-01 05:18] LABS: ALLEN TEST YES; BE 1.1 mmoll (-3.0-3.0); BLOOD TYPE ARTERIAL; HCO3-(ACT) 25.8 mmoll (20.0-26.0); METHB 0.2 % (0.0-1.5); O2(CT) 10.5 mL/dL (15.0-23.0); O2HB 97.4 % (95.0-99.0); PCO2(98.6) 35 mmHg (35-45); PO2(98.6) 100 mmHg (60-100); SAMPLE BLOOD; SAO2 99.6 % (95.0-100.0); THB 7.5 g/dL (11.5-17.4); pH(98.6) 7.46 (7.35-7.45)
[2019-08-01 05:19] LABS: MODALITY HIGH FLOW NASAL CAN
[2019-08-01 05:51] LABS: POTASSIUM 3.5 mmol/L (3.5-5.1)
--- NOTE | 2019-08-01 07:33 | Diag Imaging Result Doc PS360 ---
CHEST-1 VIEW - 08/01/2019 INDICATION: SOB COMPARISON: 07/31/2019 FINDINGS: Support lines and tubes are stable and in good position. Lung volumes are slightly improved. There are stable extensive heterogeneous coarse infiltrates, right greater than left. Heart size remains borderline enlarged. There are trace pleural effusions. IMPRESSION: No change from prior. Electronically signed by Fred Beach 08/01/2019 7:30 AM
--- NOTE | 2019-08-01 09:28 | PROGRESS NOTE ---
DATE: 08/01/2019 SUBJECTIVE: Ms Robert is tolerating her tube feeding at 50 mL an hour via an NG tube. Will increase it to 60 mL an hour and that will give her between 1516 100 calories a day. Her midline wound seems to be intact without complication and I think Dr. Boykin is decided on whether to send her to the floor. cc: MD Lázaro Hyman MD
[2019-08-01] MEDS: LASIX IV SCH (09:38)
[2019-08-01] MEDS: LANOXIN IV SCH (09:38)
[2019-08-01] MEDS: LOPRESSOR NG SCH (09:39)
--- NOTE | 2019-08-01 09:45 | PROVIDER PROGRESS NOTE ---
Progress Note Pulmonary additional note: I have seen and examined the case, reviewed the EMR, labs, latest images and other medical teams notes. Also reviewed the SUPPLY CHAIN DIRECTOR notes and signed necessary form(s). I have noted changes in condition if any from yesterday and did orders. Please see also signed progress sheet. Today, She is lethargic but overall physical improvement. Prognosis: Guarded for now. She is DNRI I reviewed latest notes from Dr. Sarmiento and Dr. Boykin. transfer to floor with tele today. Postoperative. Respiratory failure, extubated on 07/23/2019. Pneumonia and pulmonary edema. Small bowel obstruction s/p laparotomy and adhesolysis on 07/21/19 Congestive heart failure with estimated left EF 30-35%. Protein calorie malnutrition. Dementia with diffuse cerebral atrophy I asked staff psychologist about condition changes and if they have any needs in regard to today conditions. I spent 31 minutes in this process.
--- NOTE | 2019-08-01 10:45 | PROVIDER PROGRESS NOTE ---
Progress Note Dr. Heaton Progress Note/Pulmonary and or critical care We appreciated progress of care, Complications, change in diagnosis, and instructions to patient under direct supervision of Dr. Heaton. Subjective: We note the level of consciousness, bed (chair) position, family presence (if any), level of lethargy, feeling of symptoms, and changes from baseline condition/symptom. The patient is on HFNC 34% 34 L/min. No fever overnight. The RN is preparing to transfer her to the medical floor at this time. Objective: Vital Signs: We reviewed EMR current values for Pulse rate, Blood pressure, Pulse rate, respiratory rate and Pulse oximetry. Also noted other values and trends if present (e.g. I/O, CVP). Vital Signs 07/31/19 14:05 07/31/19 15:19 07/31/19 15:58 Temperature 98.0 F Pulse Rate 102 H 106 H Respiratory Rate 23 24 Blood Pressure 88/51 O2 Sat by Pulse Oximetry 100 100 100 07/31/19 20:00 07/31/19 20:04 07/31/19 23:05 Temperature 98.7 F Pulse Rate 104 H 106 H 103 H Respiratory Rate 24 24 25 H Blood Pressure 106/66 O2 Sat by Pulse Oximetry 100 100 08/01/19 00:00 08/01/19 03:25 08/01/19 04:00 Temperature 98 F 98.2 F Pulse Rate 103 H 100 H 111 H Respiratory Rate 25 H 26 H 21 Blood Pressure 116/69 112/68 O2 Sat by Pulse Oximetry 100 100 08/01/19 07:30 08/01/19 08:58 08/01/19 09:38 Temperature 98.3 F Pulse Rate 108 H 106 H 111 H Respiratory Rate 21 18 Blood Pressure 99/63 O2 Sat by Pulse Oximetry 100 100 08/01/19 11:10 08/01/19 11:40 Temperature 98.1 F Pulse Rate 112 H 108 H Respiratory Rate 14 22 Blood Pressure 122/79 O2 Sat by Pulse Oximetry 100 96 Intake & Output 07/31/19 08/01/19 08/01/19 19:59 07:59 19:59 Intake Total 470 / 1880 1410 / 1880 540 / 540 Output Total 650 / 1400 750 / 1400 160 / 160 Balance -180 / 480 660 / 480 380 / 380 Intake: Intake, IVPB 50 / 450 400 / 450 50 / 50 Intake, Tube Feeding Amount 360 / 1160 800 / 1160 420 / 420 Intake, Tube Irrigant Amount 60 / 270 210 / 270 70 / 70 Output: Output, Urine Griffith Amount 650 / 1400 750 / 1400 160 / 160 Other: NG/Feeding Tube Residual Check Yes Yes & Amount Number of Bowel Movements 1 1 Bowel Movement Color and Liquid Liquid Character Brown Brown Physical Examination: General: Chronically ill appearing. Lying in bed with no acute distress noted. HEENT: Trachea midline. Mucus pink and moist. Chest: Desmond and unlabored. No increased work of breathing or skin washer muscle use. Symmetrical excursion. Auscultation reveals diminished breathing sounds and early inspiratory crackles RLL. CVS: sinus tachycardia with Regular rate and rhythm. Abdomen: Soft. Bowel sounds present. Nondistended. Surgical incision in the abd midline is dry and clean. Extremities: BUE trace edema. Neuro: Lethargic. Open eyes upon verbal stimuli, but not answering questions or following commands. Labs and Radiology: Reviewed available labs and radiology values available at time of EMR review. Laboratory Results 07/31/19 07/31/19 08/01/19 16:11 19:39 00:20 Specimen Type Sample Site pH pCO2 pO2 HCO3 Base Excess Oxyhemoglobin ABG O2 Sat (Calculated) ABG O2 Saturation ABG Carboxyhemoglobin ABG Methemoglobin Jerrod Test A-a O2 Difference Total Hemoglobin Lactate Liter Flow Blood Gas Modality FiO2 % Potassium POC Glucose 139 H 178 H 194 H Magnesium 08/01/19 08/01/19 08/01/19 04:15 04:26 04:35 Specimen Type ARTERIAL Sample Site R RADIAL pH 7.46 H pCO2 35 pO2 100 HCO3 25.8 Base Excess 1.1 Oxyhemoglobin 97.4 ABG O2 Sat (Calculated) 10.5 L ABG O2 Saturation 99.6 ABG Carboxyhemoglobin 1.90 ABG Methemoglobin 0.2 Jerrod Test YES A-a O2 Difference 141.0 Total Hemoglobin 7.5 L Lactate 1.80 Liter Flow 30.0 Blood Gas Modality HIGH FLOW NASAL CAN FiO2 % 40.0 Potassium 3.5 POC Glucose 233 H Magnesium 2.0 08/01/19 09:29 Specimen Type Sample Site pH pCO2 pO2 HCO3 Base Excess Oxyhemoglobin ABG O2 Sat (Calculated) ABG O2 Saturation ABG Carboxyhemoglobin ABG Methemoglobin Jerrod Test A-a O2 Difference Total Hemoglobin Lactate Liter Flow Blood Gas Modality FiO2 % Potassium POC Glucose [address] Heaotn evaluated and additional note below. Evaluation time in minutes: 31 minutes. Assessment: DNR1 Postoperative respiratory failure, extubated on 07/23/2019 Bilateral pneumonia with small pleural effusions and pulmonary edema. Improved. Small bowel obstruction s/p laparotomy and adhesolysis on 07/21/19 Congestive heart failure with estimated left EF 30-35% with severe hypokinesis to akinesis of the apical anteroseptal region and apex Small ascites and body wall edema Acute renal injury LFTs elevation Protein calorie malnutrition Dementia with diffuse cerebral atrophy Plan: Continue current treatment and supportive care per admitting and other teams on the case. Antibiotics. Bronchodilators. Appropriate DVT and GI prophylaxis. Input was appreciated from Admitting MD and other teams on the case. See additional notes by Dr. Heaton.
--- NOTE | 2019-08-01 12:57 | INFECTIOUS DISEASE PROGRESS NO ---
DATE: 08/01/2019 PRESENT ILLNESS: The patient has a bilateral pneumonia. MEDICATIONS: This is day 5 of treatment with Zyvox and day 2 of treatment with meropenem. PHYSICAL EXAMINATION: Vital Signs: Temperature is 98.2 degrees, pulse 111, respirations 21, blood pressure is 112/68. General: This is a chronically ill-appearing, elderly female. She is in no acute distress. Head, Eyes, Ears, Nose, and Throat: She does not have any drainage from her nose or ears. I was unable to get a good view of her mouth. Neck: The patient has a right- sided jugular vein catheter in place. The site is not bleeding or purulent. Lungs: Clear to auscultation. Cardiovascular: Heart rate is regular. Abdomen: Soft and nontender. The patient's incision is intact. Neurologic: The patient is obtunded. She does not respond to verbal stimuli. She does not have a tremor either. LAB AND X-RAY: The patient's chest x-ray shows bilateral infiltrates with more infiltrates in the right lung than the left lung. The patient's blood gases show a pH of 7.46, a PO2 of 100, and a pCO2 of 35. ASSESSMENT AND PLAN: The patient has bilateral pneumonia. My plan is to continue with Zyvox and meropenem. COMORBIDITIES: The patient is elderly and she has undergone abdominal surgery. The patient also appears to have malnutrition. cc: MD Lázaro Ray MD
--- NOTE | 2019-08-01 13:42 | PROGRESS NOTE ---
DATE: 08/01/2019 SUBJECTIVE: The patient is asleep, did not really wake up to interact with anybody yesterday. Since yesterday vital signs have stabilized and I have been asked on a couple of occasions by the head of the ICU to see if we can move her to the floor. I spoke at length with Dr. Sarmiento about her tube feeds, which seem to be going well. OBJECTIVE: Vital Signs: 98.3, 108, 21, 99/63, 100% saturation on 30% high- flow cannula. ASSESSMENT: The patient open her eyes briefly when I spoke to her but then closed them shut and held them shut very tightly and did not care to interact.Lungs: Clear to auscultation. She has good air movement. She is not struggling and was not as tachypneic as she was in the past Abdomen: The wounds from her surgery appear to be healing well. She has bowel sounds present. Extremities: She has edema in her upper extremities and some dependent edema in the back and buttocks. LABORATORY: Potassium was 3.5 today. Blood sugars have been in the 170 to 230 range. Magnesium 2.0. ABG this morning 7.46, 35, 100, 99.6% saturated. ASSESSMENT AND PLAN: 1. Although the patient is still fairly high maintenance because of the numbers of medications and other things that need to be checked, I am going to try and get her to the surgical floor. She will remain on telemetry due to her tachycardia. 2. Status post laparotomy with nasogastric tube in place. She is tolerating tube feeds well, in agreement with Dr. Sarmiento we are going to increase dose to 60 mL an hour. 3. Respiratory failure. Remarkably, this seems to be resolving. She is more stable. Dr. Morejon continues to treat for pneumonia. Dr. Tamayo is watching fluid balance and cardiovascular parameters. 4. The patient's mental status is of question. Only a few days ago she actually woke up and tried to work a word puzzle. She is not cooperative with me today. I looked on the MAR and did not find any evidence that she had been getting sedatives. I discontinued her morphine as a result of that we still have Haldol needed if necessary but I would just as soon minimize that interaction whatsoever. 5. Do not resuscitate level 1. 6. Dementia, aware. cc: Lázaro Boykin MD [facility]
[2019-08-01] MEDS: DIOVAN PO SCH (18:39)
--- NOTE | 2019-08-01 18:50 | PROGRESS NOTE ---
DATE: 08/01/2019 SUBJECTIVE: Patient is awake and inconsistently interactive when I see her. She denies discomfort. OBJECTIVE: Vital Signs: Blood pressure 123/76, heart rate 110 with ECG monitor showing sinus tachycardia. Oxygen saturation 100% on high-flow oxygen per nasal cannula. Neck: Jugular venous distention is not evident. Chest: Clear to auscultation bilaterally. Cardiac: Reveals a regular tachycardia without appreciable murmur or gallop. There is no evidence of peripheral edema. LABORATORY DATA: Includes an arterial blood gas with a pH 7.46, pCO2 of 35, PO2 100. Chest x-ray was reviewed and demonstrates mild cardiomegaly and bilateral pulmonary infiltrates which seemed to be progressively improving. IMPRESSION: 1. Respiratory failure, improving. Underlying etiology multifactorial. 2. Pulmonary edema on some of her chest x-rays. This is improved with diuresis. 3. Recent pneumonia possibly aspiration related in the setting of small bowel obstruction. 4. Cardiomyopathy with left ejection fraction 30 to 35% on difficult echocardiography study. 5. Anemia. 6. Recent laparotomy with lysis of adhesions for small bowel obstruction. 7. Altered mental status. Her mental status seems to vary from time to time. Suspect some underlying cognitive impairment. 8. Severe nutritional impairment. 9. Hypertension. 10. Hyperlipidemia. RECOMMENDATIONS: 1. Continue Lasix daily. 2. Gently increase metoprolol. 3. Add low-dose angiotensin receptor blocking agent. 4. Repeat limited echocardiography. cc: MD Lázaro Mueller MD
[2019-08-01] MEDS: PROTONIX IV SCH (22:28)
[2019-08-02] MEDS: HUMALOG SUBQ SCH ×6 (01:00→21:08)
[2019-08-02] MEDS: DUONEB (A & A) INH SCH ×6 (03:40→23:48)
[2019-08-02 06:27] LABS: ALLEN TEST YES; BE 2.4 mmoll (-3.0-3.0); BLOOD TYPE ARTERIAL; HCO3-(ACT) 26.7 mmoll (20.0-26.0); METHB 0.1 % (0.0-1.5); O2(CT) 9.3 mL/dL (15.0-23.0); O2HB 91.3 % (95.0-99.0); PCO2(98.6) 31 mmHg (35-45); PO2(98.6) 54 mmHg (60-100); SAMPLE BLOOD; SAO2 93.9 % (95.0-100.0); THB 7.2 g/dL (11.5-17.4); pH(98.6) 7.52 (7.35-7.45)
[2019-08-02 06:28] LABS: MODALITY ROOM AIR
[2019-08-02] MEDS: MERREM 1 GM in NS 50 ML IV SCH ×2 (06:31→23:38)
[2019-08-02] MEDS: LOVENOX SUBQ SCH (06:31)
[2019-08-02 07:31] LABS: BASO# 0.05 X1000 (0.0-0.2); EOS# 0.11 X1000 (0.0-0.7); EOS% 2.2 % (0.0-10.0); HEMATOCRIT 22.4 % (37.0-47.0); HEMOGLOBIN 6.7 g/dL (12.0-16.0); IMM GRAN# 0.03 X1000 (0.0-0.04); IMM GRAN% 0.6 % (0.0-0.5); LYMPH# 1.15 X1000 (1.2-3.4); LYMPH% 23.3 % (20.5-51.1); MCHC 29.9 g/dL (33-37); MCV 110.3 FL (81-99); MONO% 6.1 % (1.7-9.3); MPV 11.5 FL (7.4-10.4); NEUT% 66.8 % (42.2-75.2); PLT 191 X1000 (130-400); RBC 2.03 XMIL (4.2-5.4); WBC 4.94 X1000 (4.8-10.8)
[2019-08-02 07:45] LABS: AGAP 12; BUN 26 mg/dL (8-22); CALCIUM 8.3 mg/dL (8.8-10.2); CHLORIDE 105 mmol/L (98-107); COSMO 291; CREATININE 0.6 mg/dL (0.5-0.9); ESTIMATED GFR > 60; GLUCOSE 215 mg/dL (70-104); POTASSIUM 3.4 mmol/L (3.5-5.1); SODIUM 140 mmol/L (136-145); TCO2 23 mmol/L (25-35)
[2019-08-02] MEDS ORDERED: NS 500 ML IV ONE (08:27)
[2019-08-02] MEDS ORDERED: BENADRYL IV ONE (08:27)
--- NOTE | 2019-08-02 08:41 | PROGRESS NOTE ---
DATE: 08/02/2019 Ms. Robert has been transferred to the floor. She is a 69-year-old black female, she looks comfortable this morning. She does not communicate but she is awake. Evidently overnight her NG tube has come out that we were using for tube feeding. Her midline incision seems to be healing slowly. No evidence of complication or infection. Her abdomen is soft. It does not appear to be abnormally tender. I will advance her diet because I feel there is no reason she cannot eat but whether she eats enough to maintain her calories I am unsure. I think decisions have to be made whether she needs more long-term tube such as a gastrostomy for nutrition or we are going to try to allow her to take p.o. cc: MD Lázaro Hyman MD
[2019-08-02] MEDS: LANOXIN IV SCH (11:51)
[2019-08-02] MEDS: LASIX IV SCH (11:51)
--- NOTE | 2019-08-02 12:51 | PROVIDER PROGRESS NOTE ---
Progress Note Dr. Heaton Progress Note/Pulmonary and or critical care We appreciated progress of care, Complications, change in diagnosis, and instructions to patient under direct supervision of Dr. Heaton. Subjective: We note the level of consciousness, bed (chair) position, family presence (if any), level of lethargy, feeling of symptoms, and changes from baseline condition/symptom. The patient is on NC at 2 L/min and tolerates well at this time. She opens her eyes and looks around when I calls her name, but she doesnt talk or follow simple commands. No fever overnight. Her Hgb 6.[address] Boykin already ordered 2 units of blood transfusion. Objective: Vital Signs: We reviewed EMR current values for Pulse rate, Blood pressure, Pulse rate, respiratory rate and Pulse oximetry. Also noted other values and trends if present (e.g. I/O, CVP). Vital Signs 08/01/19 16:12 08/01/19 19:39 08/01/19 20:00 Temperature 97.6 F 98.4 F Pulse Rate 112 H 119 H 110 H Respiratory Rate 22 18 20 Blood Pressure 123/76 112/68 O2 Sat by Pulse Oximetry 100 97 95 08/02/19 00:00 08/02/19 04:00 08/02/19 07:40 Temperature 98.0 F 98.2 F 98.7 F Pulse Rate 122 H 118 H 112 H Respiratory Rate 20 22 20 Blood Pressure 133/77 125/69 144/76 O2 Sat by Pulse Oximetry 92 L 94 L 95 08/02/19 08:18 08/02/19 11:45 08/02/19 11:51 Temperature 98.0 F Pulse Rate 78 110 H 125 H Respiratory Rate 14 20 Blood Pressure 135/76 O2 Sat by Pulse Oximetry 96 100 Intake & Output 08/01/19 08/02/19 08/02/19 19:59 07:59 19:59 Intake Total 810 / 810 Output Total 960 / 1510 550 / 1510 Balance -150 / -700 -550 / -700 Intake: Intake, IVPB 50 / 50 Intake, Tube Feeding Amount 690 / 690 Intake, Tube Irrigant Amount 70 / 70 Output: Output, Urine Griffith Amount 960 / 1510 550 / 1510 Other: NG/Feeding Tube Residual Check Yes & Amount Number of Bowel Movements 1 3 Bowel Movement Color and Liquid Character Brown Physical Examination: General: Chronically ill appearing. Lying in bed with no acute distress noted. HEENT: Trachea midline. Mucus pink and moist. Chest: Desmond and unlabored. No increased work of breathing or hone operator muscle use. Symmetrical excursion. Auscultation reveals diminished breathing sounds, otherwise, clear. CVS: sinus tachycardia with Regular rate and rhythm. Abdomen: Soft. Bowel sounds present. Nondistended. Surgical incision in the abd midline is dry and clean. Extremities: BUE trace edema. Neuro: Lethargic. Open eyes upon verbal stimuli, but not answering questions or following commands. Labs and Radiology: Reviewed available labs and radiology values available at time of EMR review. Laboratory Results 08/01/19 08/01/19 08/01/19 12:58 17:57 20:55 WBC RBC Hgb Hct MCV MCH MCHC RDW Std Deviation Plt Count MPV Immature Gran % (Auto) Neut % (Auto) Lymph % (Auto) [place] % (Auto) Eos % (Auto) Baso % (Auto) Immature Gran # (Auto) Neut # (Auto) Lymph # (Auto) [place] # (Auto) Eos # (Auto) Baso # (Auto) Segmented Neutrophils Specimen Type Sample Site pH pCO2 pO2 HCO3 Base Excess Oxyhemoglobin ABG O2 Sat (Calculated) ABG O2 Saturation ABG Carboxyhemoglobin ABG Methemoglobin Jerrod Test A-a O2 Difference Total Hemoglobin Lactate Blood Gas Modality FiO2 % Sodium Potassium Chloride Carbon Dioxide Anion Gap BUN Creatinine Estimated GFR/1.73 m2 BUN/Creatinine Ratio Glucose POC Glucose 186 H 223 H 147 H Calculated Osmolality Calcium Blood Type Antibody Screen Crossmatch 08/02/19 08/02/19 08/02/19 04:24 05:35 06:19 WBC RBC Hgb Hct MCV MCH MCHC RDW Std Deviation Plt Count MPV Immature Gran % (Auto) Neut % (Auto) Lymph % (Auto) [place] % (Auto) Eos % (Auto) Baso % (Auto) Immature Gran # (Auto) Neut # (Auto) Lymph # (Auto) [place] # (Auto) Eos # (Auto) Baso # (Auto) Segmented Neutrophils Specimen Type ARTERIAL Sample Site R BRACHIAL pH 7.52 H pCO2 31 L pO2 54 L HCO3 26.7 H Base Excess 2.4 Oxyhemoglobin 91.3 L ABG O2 Sat (Calculated) 9.3 L ABG O2 Saturation 93.9 L ABG Carboxyhemoglobin 2.70 H ABG Methemoglobin 0.1 Jerrod Test YES A-a O2 Difference 57.0 Total Hemoglobin 7.2 L Lactate 2.00 Blood Gas Modality ROOM AIR FiO2 % 21.0 Sodium Potassium Chloride Carbon Dioxide Anion Gap BUN Creatinine Estimated GFR/1.73 m2 BUN/Creatinine Ratio Glucose POC Glucose 229 H D 226 H Calculated Osmolality Calcium Blood Type Antibody Screen Crossmatch 08/02/19 08/02/19 08/02/19 07:10 07:10 07:10 WBC 4.94 RBC 2.03 L Hgb 6.7 L Hct 22.4 L MCV 110.3 H MCH 33.0 H MCHC 29.9 L RDW Std Deviation Not Reportable Plt Count 191 MPV 11.5 H Immature Gran % (Auto) 0.6 H Neut % (Auto) 66.8 Lymph % (Auto) 23.3 [place] % (Auto) 6.1 Eos % (Auto) 2.2 Baso % (Auto) 1.0 H Immature Gran # (Auto) 0.03 Neut # (Auto) 3.30 Lymph # (Auto) 1.15 L [place] # (Auto) 0.30 Eos # (Auto) 0.11 Baso # (Auto) 0.05 Segmented Neutrophils Not Reportable Specimen Type Sample Site pH pCO2 pO2 HCO3 Base Excess Oxyhemoglobin ABG O2 Sat (Calculated) ABG O2 Saturation ABG Carboxyhemoglobin ABG Methemoglobin Jerrod Test A-a O2 Difference Total Hemoglobin Lactate Blood Gas Modality FiO2 % Sodium 140 Potassium 3.4 L Chloride 105 Carbon Dioxide 23 L Anion Gap 12 BUN 26 H Creatinine 0.6 Estimated GFR/1.73 m2 > 60 BUN/Creatinine Ratio 43 Glucose 215 H POC Glucose Calculated Osmolality 291 Calcium 8.3 L Blood Type O POSITIVE Antibody Screen NEGATIVE Crossmatch See Detail 08/02/19 10:00 WBC RBC Hgb Hct MCV MCH MCHC RDW Std Deviation Plt Count MPV Immature Gran % (Auto) Neut % (Auto) Lymph % (Auto) [place] % (Auto) Eos % (Auto) Baso % (Auto) Immature Gran # (Auto) Neut # (Auto) Lymph # (Auto) [place] # (Auto) Eos # (Auto) Baso # (Auto) Segmented Neutrophils Specimen Type Sample Site pH pCO2 pO2 HCO3 Base Excess Oxyhemoglobin ABG O2 Sat (Calculated) ABG O2 Saturation ABG Carboxyhemoglobin ABG Methemoglobin Jerrod Test A-a O2 Difference Total Hemoglobin Lactate Blood Gas Modality FiO2 % Sodium Potassium Chloride Carbon Dioxide Anion Gap BUN Creatinine Estimated GFR/1.73 m2 BUN/Creatinine Ratio Glucose POC Glucose 232 H Calculated Osmolality Calcium Blood Type Antibody Screen Crossmatch Dr. Heaton evaluated and additional note below. Evaluation time in minutes: 10 minutes. Assessment: DNR1 Postoperative respiratory failure, extubated on 07/23/2019 Bilateral pneumonia with small pleural effusions and pulmonary edema. Improved. Small bowel obstruction s/p laparotomy and adhesolysis on 07/21/19 Congestive heart failure with estimated left EF 30-35% with severe hypokinesis to akinesis of the apical anteroseptal region and apex Small ascites and body wall edema Acute renal injury LFTs elevation Protein calorie malnutrition Dementia with diffuse cerebral atrophy Plan: Continue current treatment and supportive care per admitting and other teams on the case. Antibiotics. Bronchodilators. Appropriate DVT and GI prophylaxis. Input was appreciated from Admitting MD and other teams on the case.
[2019-08-02] MEDS ORDERED: VANCOMYCIN IV PER PHARMACY MISC SCH (13:00)
[2019-08-02] MEDS: DIOVAN PO SCH (13:04)
[2019-08-02] MEDS: LOPRESSOR NG SCH ×2 (13:04→18:16)
[2019-08-02] MEDS ORDERED: VANCOMYCIN 1.4 GM in NS 250 ML IV ONE (14:00)
--- NOTE | 2019-08-02 16:03 | ECHO REPORT ---
ORDER DATE: 08/02/2019 STUDY: Limited 2D echocardiogram to assess left ventricular systolic function. ECHOCARDIOGRAPHIC MEASUREMENTS: 1. Interventricular septum 0.8. 2. Left ventricular posterior wall 0.8. 3. Diastolic diameter 3.2. 4. Left atrium 3.3. 5. Aorta 2.5. SUMMARY OF 2 DIMENSIONAL IMAGIN. Aortic valve leaflets are trileaflet. 2. Pulmonic valve was normal. 3. Mitral valve was normal. 4. Tricuspid valve was normal. Normal left ventricular cavity size. Estimated ejection fraction of 60 to 65 percent. Sinus tachycardia was noted. 5. There is no pericardial effusion or obvious intracardiac mass or thrombus seen. cc: MD Renzo Mcmahon MD Timothy P. Weirich, MD
--- NOTE | 2019-08-02 19:20 | PROGRESS NOTE ---
DATE: 08/02/2019 SUBJECTIVE: The patient is awake and alert. She is interactive with nods and grunts. She had enticed her family to open up all the liquids on her diet tray, but then refused to partake of any of those. Overnight, the patient pulled out her NG tube and we have left that out for the time being. VITAL SIGNS: 98.7, 112, 20, 144/76. PHYSICAL EXAMINATION: Lungs: Clear. Cardiovascular: Regular, tachycardia. Extremities: Show less swelling in the upper extremities. There is little, if any, detectable in the dependent areas of her legs. LABORATORY: Potassium is 3.4, BUN 26, creatinine 0.6. White cell count is 4.9, hemoglobin is 6.7, hematocrit 22.4. ASSESSMENT AND PLAN: 1. The patient has done well on the surgical floor other than having the opportunity to pull her nasogastric tube out. We are going to leave that out for now. I discussed with the family the realities of needing long-term nutrition if she is going to survive. They went as far as to call the patient's daughter, but she deferred decision-making on this to her brother, who has durable power of valving machine operator apparently. She will likely need a gastrostomy tube prior to discharge. 2. Status post laparotomy, stable. 3. The patient's respiratory failure is markedly improved. She remains tachycardic. 4. Mental status has improved from the standpoint of her level of alertness and interaction. Unfortunately, she is still recalcitrant to any suggestion about eating or following any instructions in a meaningful way. I do not think she is capable of making these decisions on her own because clearly she is making decisions that are not in the best interest of her health. 5. The patient is markedly anemic and I am going to transfuse her 2 units of packed red cells. Due to her overall nutritional deficiency, I do not think she can make this up on her own, and the larger volume transfusion of 2 units will be necessary in her particular case. 6. Dementia, aware. 7. Do Not Resuscitate level 1. cc: Lázaro Boykin MD
--- NOTE | 2019-08-02 19:39 | INFECTIOUS DISEASE PROGRESS NO ---
DATE: 08/02/2019 PRESENT ILLNESS: The patient has bilateral pneumonia. MEDICATIONS: This is day 6 of treatment with Zyvox and day 3 of treatment with meropenem. PHYSICAL EXAMINATION: Vital Signs: Temperature is 98 degrees, pulse 125, respirations 20, blood pressure 135/76. General: This is a chronically ill appearing, elderly female. She is very lethargic. She does not appear to be in any acute distress. Head/eyes/ears/nose/throat: No drainage noted from the nose or ears. I was unable to see into her mouth. Neck: No apparent pain with passive movement. The patient has a right-sided jugular venous catheter in place. The site is not bleeding or purulent. Lungs: Clear to auscultation. Cardiovascular: Heart rate is regular. Abdomen: Soft and nontender. The patient's incision remains intact. Neurologic: The patient is very lethargic. She did not respond to verbal stimuli. There was no tremor. LAB AND X-RAY: Chest x-ray shows bilateral infiltrates. The CBC shows a white count of 4940, hemoglobin 6.7, and platelet count 191,000. Creatinine is 0.6. GFR is greater than 60. Blood gases show a pH of 7.52, a pO2 of 54, and a pCO2 of 31. ASSESSMENT AND PLAN: The patient has bilateral pneumonia. I am going to continue meropenem, but I am substituting vancomycin for Zyvox because the patient's hemoglobin is dropping. COMORBIDITIES: The patient is elderly and she has recently undergone abdominal surgery. The patient also appears to be malnourished. cc: MD Lázaro Ray MD
[2019-08-02] MEDS: PROTONIX IV SCH (23:39)
[2019-08-03] MEDS: DUONEB (A & A) INH SCH ×2 (03:39→08:35)
[2019-08-03] MEDS: HUMALOG SUBQ SCH ×7 (05:05→17:18)
[2019-08-03] MEDS: MERREM 1 GM in NS 50 ML IV SCH ×3 (05:21→20:41)
[2019-08-03] MEDS: LOVENOX SUBQ SCH (05:21)
[2019-08-03] MEDS ORDERED: VANCOMYCIN 1 GM in NS 250 ML IV SCH (08:00)
--- NOTE | 2019-08-03 10:15 | PROGRESS NOTE ---
DATE: 08/03/2019 SUBJECTIVE: The patient is sitting in her bed alone. She has removed her aerosol treatment. According to nurse, she has been doing that all day and all night yesterday as well, so the breathing treatments are worthless in their administration. The patient reportedly did not eat. She is awake and alert today. OBJECTIVE: Vital Signs: 98.0, 103, 17, 125/77, 95% saturated on room air. General: The patient is alert. She makes eye contact. She points to things. She does not speak. She turns away when I try to adjust her aerosol face mask and then pulled it apart. LABORATORY DATA: The patient was transfused yesterday, there was no laboratory. We will recheck that tomorrow and see where her blood count has equilibrated to. ASSESSMENT AND PLAN: 1. The patient's nasogastric tube is out. I asked the family yesterday to consider a gastrostomy tube. They were going to confer with each other and make a decision. She will need that for any hope of long-term survival, although I do not have hope that her mental status will recover at this point. We are awaiting the family's decision. 2. The patient is stable status post laparotomy for small-bowel obstruction. 3. Respiratory failure is markedly improved. The breathing treatments, as stated above, are fairly useless when she pulls them off like that, so I am going to discontinue those. 4. Mental status is pretty much at baseline compared to the last time I saw her in the office several months ago. She is still pretty much refusing to eat or to comply in any other meaningful way. 5. The patient was transfused 2 units of packed red cells yesterday successfully and we will recheck that level tomorrow. 6. Do Not Resuscitate level 1. 7. The patient is going to need long-term placement at discharge. We need to just settle her nutritional issues before trying to get her out. cc: Lázaro Boykin MD
[2019-08-03] MEDS: LANOXIN IV SCH (10:28)
[2019-08-03] MEDS: LASIX IV SCH (10:29)
[2019-08-03] MEDS: DIOVAN PO SCH (10:36)
[2019-08-03] MEDS: LOPRESSOR NG SCH ×3 (10:37→17:19)
--- NOTE | 2019-08-03 14:01 | PROVIDER PROGRESS NOTE ---
Progress Note Dr. Heaton Progress Note/Pulmonary and or critical care We appreciated progress of care, Complications, change in diagnosis, and instructions to patient under direct supervision of Dr. Heaton. Subjective: We note the level of consciousness, bed (chair) position, family presence (if any), level of lethargy, feeling of symptoms, and changes from baseline condition/symptom. The patient has been on Room air since last night and tolerates well. She is awake and smiling at me when she saw me. She does squeeze my hands, but I think randomly, not following my commands. She does not talk or answer any questions at this time. RN reports she has not eaten anything today. Family at the bedside. Objective: Vital Signs: We reviewed EMR current values for Pulse rate, Blood pressure, Pulse rate, respiratory rate and Pulse oximetry. Also noted other values and trends if present (e.g. I/O, CVP). Vital Signs 08/02/19 15:56 08/02/19 17:07 08/02/19 17:37 Temperature 98.2 F 97.5 F L Pulse Rate 105 H 106 H 106 H Respiratory Rate 14 16 16 Blood Pressure 114/65 119/73 O2 Sat by Pulse Oximetry 100 100 08/02/19 18:03 08/02/19 20:00 08/02/19 20:16 Temperature 97.9 F 97.6 F Pulse Rate 102 H 108 H Respiratory Rate 18 20 Blood Pressure 129/59 134/69 O2 Sat by Pulse Oximetry 100 94 L 97 08/02/19 20:44 08/03/19 00:00 08/03/19 04:00 Temperature 97.9 F 97.6 F 97.9 F Pulse Rate 106 H 74 102 H Respiratory Rate 19 18 18 Blood Pressure 98/74 133/69 144/73 O2 Sat by Pulse Oximetry 95 93 L 92 L 08/03/19 07:27 08/03/19 08:35 08/03/19 10:28 Temperature 98.0 F Pulse Rate 103 H 102 H 94 H Respiratory Rate 17 18 Blood Pressure 125/77 O2 Sat by Pulse Oximetry 95 98 08/03/19 11:22 Temperature 97.3 F L Pulse Rate 92 H Respiratory Rate 19 Blood Pressure 149/78 O2 Sat by Pulse Oximetry 96 Intake & Output 08/02/19 08/03/19 08/03/19 19:59 07:59 19:59 Intake Total 350 / 350 0 / 350 Output Total 800 / 1300 500 / 1300 725 / 725 Balance -450 / -950 -500 / -950 -725 / -725 Intake: Intake, Blood Product Amount 350 / 350 0 / 350 Leukoreduced Pc E0226 Unit 350 / 350 [id number] Leukoreduced Pc E0336 Unit 0 / 0 0 / 0 [id number] Output: Output, Urine Griffith Amount 800 / 1300 500 / 1300 725 / 725 Other: Percent of Meal Consumed Refused Number of Bowel Movements 2 1 Physical Examination: General: Chronically ill appearing. Lying in bed with no acute distress noted. HEENT: Trachea midline. Mucus pink and moist. Chest: Desmond and unlabored. No increased work of breathing or sales donor recruitment representative muscle use. Symmetrical excursion. Auscultation reveals diminished breathing bilaterally. CVS: sinus tachycardia with Regular rate and rhythm. Abdomen: Soft. Bowel sounds present. Nondistended. Surgical incision in the abd midline is dry and clean. Extremities: BUE trace edema. Neuro: Alert. Smiling at me when she saw me, but no answering questions or following commands. Labs and Radiology: Reviewed available labs and radiology values available at time of EMR review. Laboratory Results 08/02/19 08/02/19 08/02/19 07:10 16:58 21:07 POC Glucose 162 H 164 H Blood Type O POSITIVE Antibody Screen NEGATIVE Crossmatch See Detail 08/03/19 08/03/19 08/03/19 02:49 05:21 08:58 POC Glucose 146 H 165 H 184 H Blood Type Antibody Screen Crossmatch 08/03/19 08/03/19 12:53 13:19 POC Glucose 206 H 133 H Blood Type Antibody Screen Crossmatch Dr. Heaton evaluated and additional note below. Evaluation time in minutes: 10 minutes. Assessment: DNR1 Postoperative respiratory failure, extubated on 07/23/2019. Improved. Bilateral pneumonia with small pleural effusions and pulmonary edema. Improved. Small bowel obstruction s/p laparotomy and adhesolysis on 07/21/19 Congestive heart failure with estimated left EF 30-35% with severe hypokinesis to akinesis of the apical anteroseptal region and apex Small ascites and body wall edema Acute renal injury LFTs elevation Protein calorie malnutrition Dementia with diffuse cerebral atrophy Plan: Continue current treatment and supportive care per admitting and other teams on the case. Antibiotics. Bronchodilators. Appropriate DVT and GI prophylaxis. Input was appreciated from Admitting MD and other teams on the case.
--- NOTE | 2019-08-03 15:30 | PROGRESS NOTE ---
DATE: 08/03/2019 SUBJECTIVE: Ms. Yves Robert clinically looks better each day. She is more awake, alert. She is more active. She wants her bed turned toward the window so that she can see outside but she is not eating. She still has a Griffith catheter tube in place. She has pulled out her NG tube which we were using for tube feeding. There is no reason why she cannot eat by mouth physiologically. OBJECTIVE: Her midline incision is intact. PLAN: We are encouraging p.o. intake but it has been poor and we need to decide whether we will continue to try push p.o. intake versus gastrostomy tube. cc: MD Lázaro Hyman MD
[2019-08-03] MEDS: VANCOMYCIN 1 GM in NS 250 ML IV SCH (16:51)
--- NOTE | 2019-08-03 20:25 | PROGRESS NOTE ---
DATE: 08/03/2019 SUBJECTIVE: Patient continues clinically improved, has been more interactive with the family today per their report. At the time I see her, she has become somewhat drowsy and not verbally interactive. She has pulled her NG tube and is not willing to eat. OBJECTIVE: Vital Signs: Blood pressure 146/79, heart rate 85, oxygen saturation 100% on room air. There is no significant jugular venous distention. Chest is clear to auscultation. Cardiac: Reveals a regular rate and rhythm without appreciable murmur or gallop. There is no evidence of peripheral edema. LABORATORY DATA: Includes a point of care glucose of 174. IMPRESSION: 1. Recent respiratory failure. Respiratory failure, improved. Suspect multifactorial etiology. 2. Recent pulmonary edema, also improved with diuresis. 3. Recent pneumonia. Possibly aspiration related in setting of small bowel obstruction. This has improved as well. 4. Cardiomyopathy with left ejection fraction 30-35% on difficult echocardiography study. 5. Dementia with failure to thrive situation and refusal to eat. 6. Recent laparotomy with lysis of adhesions for small bowel obstruction. 7. Hypertension. 8. Hyperlipidemia. RECOMMENDATIONS: 1. Discontinue IV digoxin given some potential for affecting appetite. 2. Discontinue IV Lasix while patient is not taking oral intake. 3. Continue low-dose metoprolol as clinically permitted. 4. Continue low-dose valsartan as clinically permitted. 5. Consider appetite stimulating agents such as Megace, Marinol, or possibly Remeron. I will defer this to Dr. Boykin. 6. I will see her further on an as-needed basis. cc: MD Lázaro Mueller MD
[2019-08-03] MEDS: PROTONIX IV SCH (20:41)
[2019-08-04] MEDS: HUMALOG SUBQ SCH ×7 (01:00→22:18)
[2019-08-04] MEDS: MERREM 1 GM in NS 50 ML IV SCH ×3 (05:38→22:18)
[2019-08-04] MEDS: LOVENOX SUBQ SCH (05:38)
[2019-08-04] MEDS: VANCOMYCIN 1 GM in NS 250 ML IV SCH (10:04)
[2019-08-04] MEDS: DIOVAN PO SCH (10:27)
[2019-08-04] MEDS: LOPRESSOR NG SCH ×3 (10:27→19:46)
--- NOTE | 2019-08-04 11:34 | Diag Imaging Result Doc PS360 ---
EXAM: CHEST-1 VIEW HISTORY: pneumonia TECHNIQUE: Single view COMPARISON: 08/01/2019 FINDINGS: Poor inspiratory effort. There are dense bilateral infiltrates. No cardiomegaly. No change in the right jugular line. No pneumothorax. There is a small left pleural effusion. IMPRESSION: No significant interval change. Electronically signed by Peter Matthews 08/04/2019 11:31 AM
[2019-08-04 12:21] LABS: BASO# 0.15 X1000 (0.0-0.2); BASO% 2.7 % (0.0-0.8); EOS# 0.22 X1000 (0.0-0.7); HEMATOCRIT 33.3 % (37.0-47.0); HEMOGLOBIN 10.6 g/dL (12.0-16.0); IMM GRAN# 0.02 X1000 (0.0-0.04); IMM GRAN% 0.4 % (0.0-0.5); LYMPH# 1.36 X1000 (1.2-3.4); LYMPH% 24.7 % (20.5-51.1); MCH 31.4 PG (27-31); MCHC 31.8 g/dL (33-37); MCV 98.5 FL (81-99); MONO# 0.51 X1000 (0.11-0.59); MONO% 9.3 % (1.7-9.3); MPV 10.9 FL (7.4-10.4); NEUT# 3.24 X1000 (1.4-6.5); NEUT% 58.9 % (42.2-75.2); PLT 103 X1000 (130-400); RBC 3.38 XMIL (4.2-5.4); RDW 19.6 % (11.5-14.5)
[2019-08-04 12:40] LABS: AGAP 12; BUN 13 mg/dL (8-22); CALCIUM 8.1 mg/dL (8.8-10.2); CHLORIDE 113 mmol/L (98-107); COSMO 294; CREATININE 0.5 mg/dL (0.5-0.9); ESTIMATED GFR > 60; GLUCOSE 129 mg/dL (70-104); POTASSIUM 3.3 mmol/L (3.5-5.1); SODIUM 147 mmol/L (136-145); TCO2 22 mmol/L (25-35)
--- NOTE | 2019-08-04 13:43 | PROGRESS NOTE ---
DATE: 08/04/2019 SUBJECTIVE: The patient is asleep. She is soundly asleep. She does grimace to gentle chest rub, but beyond that, does not wake up or engage. She is not tachypneic or in any distress. Her food is again uneaten. There is no family present. This is the 2nd day in a row that no family has been available. OBJECTIVE: Vital Signs: 97.8, 103, 20, 124/64, 95% saturated on room air. General: The patient only grimaces to chest rub. She does not respond in a meaningful fashion. She does not open her eyes on command. Lungs: Clear to auscultation. Cardiovascular: Regular, bordering on tachycardia righted 100 beats per minute at the time of my examination Abdomen: Bowel sounds are present. LABORATORY: There is no laboratory drawn today. ASSESSMENT AND PLAN: 1. I have no word from the family as to whether they want a gastrostomy or not. I think the patient will need to be fed and medications administered. We will prescribe a Flexiflo tube to be placed through a nasogastric route and we can resume tube feeds after that is in place. We can also administer medications in that way. They will need to decide something early next week. Ultimately, the patient will need a gastrostomy tube and custodial placement at the time of discharge. 2. Status post laparotomy for small bowel obstruction. The patient has recovered well. 3. Respiratory failure. This has essentially resolved. The patient is breathing without difficulty. 4. The patient's mental status was much better yesterday. I have no explanation for why she is less responsive this morning. She has not been administered any sedating medications that I can tell based on the computer record. We will continue to observe this and make adjustments as necessary. 5. The patient was transfused 2 units the day before yesterday. We are going to recheck that lab value tomorrow. 6. Do not resuscitate level 1. cc: Lázaro Boykin MD
[2019-08-04] MEDS: HALDOL IV PRN (17:01)
--- NOTE | 2019-08-04 18:33 | Diag Imaging Result Doc PS360 ---
EXAM: CHEST-PORTABLE 08/04/2019 HISTORY: feeding tube placement TECHNIQUE: AP portable upright at 1823 COMMENT: There is a feeding tube with its tip in the stomach. There is a right internal jugular central venous catheter with its tip just above the right atrium. There are opacities with volume loss in both upper lobes and the left lower lobe. This was also the case on 08/04/2019 at 1124. Compared to 08/01/2019 the opacity in the mid lung field on the left has improved. IMPRESSION: Slightly improved bronchopneumonia. Electronically signed by Kieran Valdes 08/04/2019 6:31 PM
--- NOTE | 2019-08-04 19:55 | PROGRESS NOTE ---
DATE: 08/04/2019 Ms. Yves Robert this afternoon is awake but it appears that she does not respond to my questions normally. From what I understand she continues not to eat, will be difficult to keep the tube in her because she has pulled out several NG tubes in the past. Her midline wound remains intact with retention sutures. Her abdomen is mostly soft. She is having bowel movements. Her heart rate is 105, blood pressure 139/75, O2 saturation 99%, she is afebrile. Her white blood cell count is normal. Hematocrit is 33% after transfusions. Her BUN and creatinine are 13 and 0.5. PLAN: Dr. Boykin has ordered a feeding tube placed for tube feeding. Hopefully, she will allow that to remain. From what I understand, the family is deciding on gastrostomy. cc: MD Lázaro Hyman MD
--- NOTE | 2019-08-04 20:02 | INFECTIOUS DISEASE PROGRESS NO ---
DATE: 08/04/2019 HISTORY OF PRESENT ILLNESS: The patient has bilateral pneumonia. MEDICATIONS: This is day 5 of treatment with meropenem and day 2 of treatment with vancomycin. PHYSICAL EXAMINATION: Vital Signs: Temperature is 97.8, pulse 103, respirations 20, blood pressure 124/64. General: This is a [id number]-xah-giimynwlg, elderly female. She is very lethargic, but she does not appear to be in any acute distress. Head/eyes/ears/nose/throat: I do not see any drainage from the nose or ears. I was unable to see into her mouth. Neck: No apparent pain with passive movement. The patient does have a right-sided jugular vein catheter in place. The site is not purulent or bleeding. Lungs: Clear to auscultation. Cardiovascular: Heart rate is regular. Abdomen: Soft and nontender. The patient's incision is intact. Neurologic: The patient is very lethargic. She did not respond to verbal stimuli. There is not a tremor. LAB AND X-RAY: There is no new lab or x-ray for today. ASSESSMENT AND PLAN: The patient has bilateral pneumonia. I plan on continuing meropenem and Zyvox. I have ordered for today a CBC, a BMP, and a portable chest x-ray. COMORBIDITIES: The patient is elderly, and she has had undergone abdominal surgery during this admission. The patient also appears to be malnourished. cc: MD Lázaro Ray MD
[2019-08-04] MEDS: SODIUM CHLORIDE 0.9% INJ SCH (22:17)
[2019-08-04] MEDS: PROTONIX IV SCH (22:17)
--- NOTE | 2019-08-05 00:26 | PULMONOLOGY PROGRESS NOTE ---
DATE: 08/04/2019 SUBJECTIVE: Ms. Robert is lying in the bed resting quietly. She opens her eyes to her name being called. She does not answer or follow commands. OBJECTIVE: Vital Signs: Blood pressure is 139/74 with a heart rate of 91, respirations 20, temperature 97.9 degrees axillary with room air saturations 98 to 99 percent. Cardiovascular: Regular rate and rhythm. S1 and S2 are appreciated. No rubs, murmurs or gallops. Pulmonary: Breath sounds are clear with no increased work of breathing noted. Gastrointestinal: Abdomen is soft, nontender, nondistended with bowel sounds in all 4 quadrants. LABORATORIES: WBC is 5.5 with hemoglobin 10.6, hematocrit 33.3, and platelets of 103,000. Sodium 147, potassium 3.3, BUN 13, creatinine 0.5 with blood sugar of 129. Chest x-ray reveals no significant interval change. There are dense bilateral infiltrates. No cardiomegaly. No change in the right jugular line. No pneumothorax. ASSESSMENT AND PLAN: 1. Postoperative respiratory failure in a patient who was extubated on 07/23/2019, improving. 2. Bilateral pneumonia with small pleural effusions, improving. 3. Small bowel obstruction status post laparotomy and adhesiolysis 07/21/2019. 4. Congestive heart failure with estimated ejection fraction 30 to 35 percent with severe hypokinesis. 5. Acute kidney injury. 6. Code status. The patient is a DNR level 1. PLAN: We will continue with bronchodilators, her current regimen, antibiotics per medical team. Plan was discussed with Dr. Ayala. Dictated by HO Cespedes for Joseph Ayala MD cc: HO Cespedes MD Timothy P. Weirich, MD
[2019-08-05] MEDS: HUMALOG SUBQ SCH ×6 (03:25→22:04)
[2019-08-05] MEDS: VANCOMYCIN 1 GM in NS 250 ML IV SCH ×2 (04:47→22:06)
[2019-08-05] MEDS: MERREM 1 GM in NS 50 ML IV SCH ×3 (06:20→22:00)
[2019-08-05] MEDS: LOVENOX SUBQ SCH (06:20)
[2019-08-05 07:28] LABS: AGAP 14; ALBUMIN 2.9 g/dL (3.5-5.0); ALKALINE PHOSPHATASE 214 U/L (32-104); BUN 12 mg/dL (8-22); CALCIUM 8.7 mg/dL (8.8-10.2); CHLORIDE 114 mmol/L (98-107); COSMO 302; CREATININE 0.5 mg/dL (0.5-0.9); ESTIMATED GFR > 60; GLUCOSE 136 mg/dL (70-104); GOT 35 U/L (10-30); GPT 53 U/L (10-36); POTASSIUM 3.4 mmol/L (3.5-5.1); SODIUM 151 mmol/L (136-145); TCO2 23 mmol/L (25-35); TOTAL BILIRUBIN 0.92 mg/dL (0.20-1.00); TOTAL PROTEIN 5.9 g/dL (6.3-8.3)
[2019-08-05 07:32] LABS: BASO# 0.07 X1000 (0.0-0.2); BASO% 1.4 % (0.0-0.8); EOS# 0.09 X1000 (0.0-0.7); EOS% 1.8 % (0.0-10.0); HEMATOCRIT 35.7 % (37.0-47.0); HEMOGLOBIN 11.4 g/dL (12.0-16.0); LYMPH# 0.98 X1000 (1.2-3.4); LYMPH% 19.7 % (20.5-51.1); MCH 32.2 PG (27-31); MCHC 31.9 g/dL (33-37); MCV 100.8 FL (81-99); MONO# 0.74 X1000 (0.11-0.59); MONO% 14.9 % (1.7-9.3); MPV 10.4 FL (7.4-10.4); NEUT% 62.2 % (42.2-75.2); PLT 98 X1000 (130-400); RBC 3.54 XMIL (4.2-5.4); RDW 20.3 % (11.5-14.5); WBC 4.98 X1000 (4.8-10.8)
[2019-08-05] MEDS: LOPRESSOR NG SCH ×3 (09:05→16:51)
[2019-08-05] MEDS: DIOVAN PO SCH (09:05)
--- NOTE | 2019-08-05 11:03 | PROGRESS NOTE ---
DATE: 08/05/2019 SUBJECTIVE: Ms Robert is in no acute distress. She is comfortable, awake. Has an NG tube in place. PHYSICAL EXAMINATION: Vital signs: She is afebrile, temperature 98.2 degrees, pulse 82, respirations 14, blood pressure 138/61. HEENT: Pupils are equal and round. Lungs: Clear in all lung mijares. Cardiovascular: Regular rhythm and rate without murmur or S3. Abdomen: Soft. Skin: Warm and dry. Blood sugar 130, 167, 152. ASSESSMENT AND PLAN: 1. Postoperative respiratory failure. Patient was extubated on 07/23/2019, improving. Breathing is comfortable. 2. Bilateral pneumonia, small pleural effusion, improving. 3. Small-bowel obstruction status post laparotomy with lysis of adhesions on 07/21/2019. 4. Congestive heart failure. Estimated ejection fraction 30 to 35 percent. Severe hypokinesis. 5. Acute kidney injury. 6. Code status. He is a No-Code level 1. LABORATORY DATA: From this morning, white count 4980, hematocrit is 35, hemoglobin 11, platelet count 98,000. Chemistry: Sodium 151, potassium 3.4, chloride 114, BUN 12, creatinine 0.5. Blood sugar 144, 167, 136, 152. REVIEW OF ORDERS: I do not see any change. cc: MD Lázaro Luna MD
--- NOTE | 2019-08-05 16:04 | GENERAL SURGERY PROGRESS NOTE ---
DATE: 08/05/2019 SUBJECTIVE: No events. She has a Dobbhoff in place. No fevers. OBJECTIVE: Pulse 97, blood pressure 139/72. General: This is an elderly-appearing female in no acute distress. Cardiovascular: Normal rate. Abdomen: Soft, nontender. LABORATORY DATA: White count is 4, hematocrit is 35. Creatinine 0.5, sodium is up to 151. ASSESSMENT/PLAN: This is a 69-year-old female. She had a bowel obstruction. She is not really taking anything p.o. Gastroenterology was concerned about placing a feeding tube due to ascites apparently. In the meantime, she has a Dobbhoff tube in place. Would be reasonable to feed via this. We will follow along. cc: MD Lázaro Reynolds MD
--- NOTE | 2019-08-05 20:34 | PULMONOLOGY PROGRESS NOTE ---
DATE: 08/05/2019 SUBJECTIVE: Ms Robert is lying in the bed, she is in no distress. She does not engage in conversation at this time. OBJECTIVE: Vital Signs: Blood pressure is 139/70 with heart rate of 97, respirations 20, temperature is 98.1 degrees axillary with room air saturations 100%. Cardiovascular: Regular rate and rhythm. S1 and S2 are appreciated. No murmur. Pulmonary: Breath sounds are clear with no increased work of breathing noted. Chest rise fall symmetric respiration. Gastrointestinal: Abdomen soft, nontender, nondistended with bowel sounds in all 4 quadrants. Dobhoff is noted. LABS: WBC is 4.9 with hemoglobin 11.4, hematocrit 35.7 and platelets of 98,000. Sodium 151, potassium 3.4, BUN 12, creatinine 0.5, glucose of 136. ASSESSMENT AND PLAN: 1. Postop respiratory failure in a patient who is extubated 07/23/2019, improving. 2. Bilateral pneumonia with small pleural effusions, improving. 3. Small bowel obstruction status post laparotomy and adhesiolysis 07/21/2019. 4. History of congestive heart failure with ejection fraction of 30 to 35 percent with severe hypokinesis. 5. Acute kidney injury resolved. 6. Code status. The patient is a DNR level 1. PLAN: continue bronchodilators. continue antibiotics, vancomycin per pharmacy and Merrem. Further orders per medical team. Plan was discussed with Dr. Ayala. Dictated by HO Cespedes for Joseph Ayala MD cc: HO Cespedes MD Timothy P. Weirich, MD MTDD
[2019-08-05] MEDS: PROTONIX IV SCH (22:00)
[2019-08-05] MEDS: SODIUM CHLORIDE 0.9% INJ SCH (22:00)
[2019-08-06] MEDS: HUMALOG SUBQ SCH ×6 (01:37→22:06)
[2019-08-06] MEDS: MERREM 1 GM in NS 50 ML IV SCH ×3 (05:28→22:00)
[2019-08-06] MEDS: LOVENOX SUBQ SCH (05:28)
[2019-08-06] MEDS: LOPRESSOR NG SCH ×3 (09:00→17:28)
[2019-08-06] MEDS: DIOVAN PO SCH (09:00)
--- NOTE | 2019-08-06 15:03 | PULMONOLOGY PROGRESS NOTE ---
DATE: 08/06/2019 SUBJECTIVE: Ms. Robert is lying in the bed. She is awake and alert. She is in no distress. She will not engage in conversation at this time. OBJECTIVE: Vital Signs: Blood pressure is 147/78, with heart rate of 90, respirations 16, temperature 98.2 degrees oral, with room air saturations of 100%. HEENT: Head is normocephalic, atraumatic. Mucous membranes are moist. Neck is supple with trachea midline. Cardiovascular: Regular rate and rhythm. S1 and S2 are appreciated. Pulmonary: Breath sounds are clear with no increased work of breathing noted. Chest rises and falls symmetrically with respiration. Gastrointestinal: Abdomen is soft, nontender, nondistended, with bowel sounds in all 4 quadrants. A Dobbhoff is noted. Labs: There are no labs today. ASSESSMENT AND PLAN: 1. Postoperative respiratory failure in a patient who was extubated on 07/23/2019, improved. The patient is maintaining oxygen saturations of 95 to 100 percent on room air. 2. Bilateral pneumonia with small pleural effusions, improving per chest x-ray. 3. Small bowel obstruction, status post laparotomy and adhesiolysis on 07/21/2019. Surgery is following. 4. History of congestive heart failure with ejection fraction of 30 to 35 percent with severe hypokinesis. 5. Acute kidney injury, resolved. 6. Code status. Patient is a Do Not Resuscitate level 1. PLAN: Continue with her current medical regimen. We agree with continuing Merrem and vancomycin per pharmacy. Plan was discussed with Dr. Ayala. Dictated by HO Cespedes for Joseph Ayala MD cc: HO Cespedes MD Timothy P. Weirich, MD MTDD
--- NOTE | 2019-08-06 15:04 | GENERAL SURGERY PROGRESS NOTE ---
DATE: 08/06/2019 SUBJECTIVE: She is tolerating tube feeds at a rate of 40. No fevers. No tachycardia. Abdomen is soft, nontender, nondistended. ASSESSMENT AND PLAN: A 69-year-old female with bowel obstruction, seems resolved. She is tolerating enteric feeds via Dobbhoff tube. We will continue to follow along. cc: MD Lázaro Reynolds MD
[2019-08-06] MEDS: VANCOMYCIN 1 GM in NS 250 ML IV SCH (17:19)
[2019-08-06] MEDS: PROTONIX IV SCH (22:00)
[2019-08-06] MEDS: SODIUM CHLORIDE 0.9% INJ SCH (22:00)
[2019-08-07] MEDS: HUMALOG SUBQ SCH ×7 (01:26→21:59)
[2019-08-07] MEDS: MERREM 1 GM in NS 50 ML IV SCH ×3 (05:01→20:13)
[2019-08-07] MEDS: LOVENOX SUBQ SCH (05:02)
--- NOTE | 2019-08-07 08:28 | PROGRESS NOTE ---
DATE: 08/07/2019 Ms. Yves Robert has a feeding tube in place. It is a nasogastric tube. She is in restraints to keep from pulling it out. Her tube feeding is going at 60 mL an hour, and I think that is probably the amount of calories she needs. She is tolerating it well. Her midline incision is slow to heal because of her nutrition, but there are no complications I see with her midline incision. cc: MD Lázaro Hyman MD
--- NOTE | 2019-08-07 09:39 | PROVIDER PROGRESS NOTE ---
Progress Note Dr. Heaton Progress Note/Pulmonary and or critical care We appreciated progress of care, Complications, change in diagnosis, and instructions to patient under direct supervision of Dr. Heaton. Subjective: We note the level of consciousness, bed (chair) position, family presence (if any), level of lethargy, feeling of symptoms, and changes from baseline condition/symptom. The patient is smiling at me when I am entering the room. She is on room air and tolerates well. She appears in a good mood, but still confused and not answering questions appropriately or following simple commands. She is on NG tube feeding with a 2 point restraint to prevent her pulling NGT out. No family at the bed side. Objective: Vital Signs: We reviewed EMR current values for Pulse rate, Blood pressure, Pulse rate, respiratory rate and Pulse oximetry. Also noted other values and trends if present (e.g. I/O, CVP). Vital Signs 08/06/19 12:53 08/06/19 16:22 08/06/19 19:44 Temperature 98.1 F 97.9 F 97.7 F Pulse Rate 88 86 86 Respiratory Rate 16 16 16 Blood Pressure 162/85 146/81 155/84 O2 Sat by Pulse Oximetry 100 99 97 08/06/19 23:34 08/07/19 04:00 08/07/19 07:45 Temperature 97.8 F 98.0 F 97.9 F Pulse Rate 81 74 90 Respiratory Rate 16 17 22 Blood Pressure 150/79 148/67 163/99 O2 Sat by Pulse Oximetry 97 100 98 08/07/19 11:26 Temperature 97.8 F Pulse Rate 92 H Respiratory Rate 16 Blood Pressure 160/81 O2 Sat by Pulse Oximetry 98 Intake & Output 08/06/19 08/07/19 08/07/19 19:59 07:59 19:59 Intake Total 880 / 1180 300 / 1180 Output Total 300 / 650 350 / 650 Balance 580 / 530 -50 / 530 Intake: Intake, IV Amount 0 / 0 Intake, IVPB 100 / 100 Intake, Oral Amount 360 / 360 Intake, Tube Feeding Amount 520 / 720 200 / 720 Output: Output, Urine Griffith Amount 300 / 650 350 / 650 Other: Percent of Meal Consumed 0 Number of Continent Voids Not 6 Measured Number of Bowel Movements 0 Physical Examination: General: Chronically ill appearing. Lying in bed with no acute distress noted. HEENT: Atraumatic. Normocephalic. Trachea midline. NGT in place. Mucus pink and moist. Chest: Desmond and unlabored. No increased work of breathing or corporate development manager muscle use. Symmetrical excursion. Auscultation reveals diminished breathing bibasilarly. CVS: sinus tachycardia with Regular rate and rhythm. Abdomen: Soft. Bowel sounds present. Nondistended. Surgical incision in the abd midline is dry and clean. Extremities: BUE pitting edema 1+. Neuro: Alert. Smiling at me when she saw me, but no answering questions or following commands. Labs and Radiology: Reviewed available labs and radiology values available at time of EMR review. Laboratory Results 08/06/19 08/06/19 08/06/19 17:09 20:43 23:37 POC Glucose 143 H 194 H 145 H 08/07/19 08/07/19 05:51 08:34 POC Glucose [address] Heaton evaluated and additional note below. Evaluation time in minutes: 10 minutes. Assessment: DNR1 Postoperative respiratory failure, extubated on 07/23/2019. Improved. On room air. Bilateral pneumonia with small pleural effusions and pulmonary edema. Improved. Small bowel obstruction s/p laparotomy and adhesolysis on 07/21/19 Congestive heart failure with estimated left EF 30-35% with severe hypokinesis to akinesis of the apical anteroseptal region and apex LFTs elevation. Improving. Protein calorie malnutrition Dementia with diffuse cerebral atrophy Plan: Continue current treatment and supportive care per admitting and other teams on the case. Antibiotics including meropenem and vancomycin per Dr. Morejon. Appropriate DVT and GI prophylaxis. Input was appreciated from Admitting MD and other teams on the case.
[2019-08-07] MEDS: VANCOMYCIN 1 GM in NS 250 ML IV SCH (10:52)
[2019-08-07] MEDS: DIOVAN PO SCH (10:53)
[2019-08-07] MEDS: LOPRESSOR NG SCH ×3 (10:53→19:43)
--- NOTE | 2019-08-07 11:33 | GASTROENTEROLOGY CONSULTATION ---
DATE: 08/07/2019 REQUESTING PHYSICIAN: Lázaro Boykin MD REASON FOR CONSULT: PEG tube placement. HISTORY OF PRESENT ILLNESS: Ms. Robert is a 69-year-old female, who was admitted on 07/15/2019. She was diagnosed with small bowel obstruction. Initially, she was treated with the NG tube and improved, initially, but after removal NG of tube, she started having abdominal distention and vomiting. She had exploratory laparotomy and lysis of adhesions by Dr. Sarmiento. She was noted to have severe adhesions intra-abdominally and in her pelvis from prior hysterectomy. Since then, she has been on NG tube and she is receiving nutrition through the NG tube. She was malnourished previously from chronic small bowel obstruction. Her albumin currently is improved to 2.9. Gastroenterology consulted for PEG tube placement. PAST MEDICAL HISTORY: 1. Underweight. 2. Noncompliance with medical treatment. 3. Hyperlipidemia. 4. Hypertension. 5. Small bowel obstruction. PAST SURGICAL HISTORY: Cataract surgery, hysterectomy, gallbladder surgery, explorative laparotomy with lysis of adhesions done on 07/21/2019. SOCIAL HISTORY: She is single. She is nonsmoker. She denies alcohol. FAMILY HISTORY: Noncontributory. REVIEW OF SYSTEMS: She had lost about 40 pounds in the last 6 weeks before admission. She currently denies any nausea or vomiting. She is tolerating tube feeds well. She was also able to only answer some of my questions today. PHYSICAL EXAMINATION: Vital Signs: Temperature 97.9 degrees, pulse rate 90, respiratory rate 22, blood pressure 163/99. Saturating 90% on room air. General: Body weight of 118 pounds 4 ounces. BMI 20.9. Thinly built, lying in bed, in no acute distress. HEENT: Mild pallor. No icterus. NG tube in place. Pupils equal, reactive to light. Neck: Supple. Abdomen: There are midline ame noted. Abdomen is otherwise soft. Nondistended. No guarding. Mild discomfort around the abdominal incision. Extremities: No cyanosis or clubbing. Neurologic: She was awake, alert. She was smiling and was only able to answer some questions by nodding. LABORATORY DATA: Her hemoglobin and hematocrit is 11.4 and 35.7, white count of 4.9, and platelet count of 98,000. Sodium 151, potassium 3.4, chloride 114, bicarbonate 29.4, BUN of 12, creatinine 0.5, glucose of 174, calcium is 8.7, total bilirubin is 0.92, AST 35, ALT 50. Alkaline phosphatase 240, total protein 5.2, albumin 2.9. Blood cultures x2 negative 5 days from 07/15/2019. IMAGING: Last chest x-ray done 2 days ago showed slightly improved bronchopneumonia, feeding tube with the tip in the stomach. Opacities with volume loss in both upper lobes and the left lower lobe. Abdominal x-ray done Abdominal x-ray on 07/29/2019 showed surgical skin clips in the midline. Some stool in the rectum. CT abdomen and pelvis on 07/25/2019 showed development of dense bilateral infiltrates and pleural effusions. Development of small ascites and body wall edema. Prominent fatty infiltration of liver, cholecystectomy, large hiatal hernia. IMPRESSION AND PLAN: 1. Postoperative respiratory failure extubated 07/23/2019. This is managed by primary team. 2. Bilateral pneumonia both left upper and right upper lobe and in the left lower lobe. She is being treated by the primary care team and the pulmonary team. She is continuing on vancomycin and meropenem per the primary team. 3. Deep venous thrombosis prophylaxis, Lovenox, 4. She is on nasogastric tube feeding. She is tolerating well. 5. Diabetes. She is on sliding scale Humalog. 6. Gastrointestinal prophylaxis with Protonix once daily. 7. Evidence of a large hiatal hernia on imaging, she will continue to be on aspiration precautions. 8. Prolonged nasogastric tube feeding. We will check a swallow evaluation and if she fails we will pursue percutaneous endoscopic gastrostomy tube placement. 9. Small-bowel obstruction status post laparotomy and adhesiolysis on 07/21/[address] Sarmiento. 10. Congestive heart failure with ejection fraction of 35% with severe hypo-akinesis to akinesis of the apical anteroseptal region and apex. Being followed primary team. 11. Elevated liver enzymes which are improving. We will check hepatitis panel. 12. Dementia with diffuse cerebral atrophy. Likely contributing to encephalopathy. 13. Protein calorie malnutrition. As above. 14. The above discussed with the patient and nursing staff and all questions answered. Please call with any further questions. cc: MD Lázaro Garvin MD
--- NOTE | 2019-08-07 11:51 | PROGRESS NOTE ---
DATE: 08/07/2019 SUBJECTIVE: The patient is lying in bed. She has her eyes open. She is restrained. She has a feeding tube in place. She responds to my presence but will not speak. There is no family present. OBJECTIVE: Vital Signs: 97.9, 90, 22, 163/99, 98% saturated on room air. Lungs: Clear. Cardiovascular: Regular. Neuropsychiatric: The patient's eyes are open. She tracks me with her eyes and responds with facial expressions and grunts, but will not speak. ASSESSMENT/PLAN: 1. Long-term nutrition will need to be through some form of enteral delivery. I think a percutaneous endoscopic gastrostomy tube is in order. I have recommended this to the family and have spoken with them on multiple occasions, but I have not seen them in my last 4 days of rounding. My contact with the nurses prior to this weekend stated that they were unable to reach them by phone. I have written a consult for Dr. Alegria to put in a percutaneous endoscopic gastrostomy tube. Hopefully, we can get permission to do so and move forward and get the patient into a correction bed. 2. Status post laparotomy for small bowel obstruction. She seems to have recovered from this well. It may be time to take out sutures if that has not already taken place. 3. Respiratory failure, resolved. 4. The patient's mental status is always of concern. Although she may appear to be awake and alert, she is clearly not making decisions in her best interest and I do not think she is capable of doing so. The patient's son has durable power of title attorney, and we will need to have correction placement. 5. The patient has been transfused 2 units over the course of the hospitalization due to anemic which is likely fueled by nutrition and acute illness. 6. Do Not Resuscitate level 1. cc: Lázaro Boykin MD MTDD
[2019-08-07] MEDS ORDERED: NS 500 ML ONE (14:43)
--- NOTE | 2019-08-07 18:14 | INFECTIOUS DISEASE PROGRESS NO ---
DATE: 08/07/2019 PRESENT ILLNESS: Ms. Robert is being treated for bilateral pneumonia. She is status post exploratory laparotomy with lysis of adhesions for a small bowel obstruction. MEDICATIONS: She is on day 8 of meropenem 1 g IV every 8 hours and day 5 of vancomycin IV per pharmacy dosing. PHYSICAL EXAMINATION: Vital Signs: Temperature is 97.8 degrees, pulse rate 92, respiratory rate 16, blood pressure 160/81, O2 saturation is 98% on room air. General: This is a chronically ill- appearing, elderly female. She is lying in bed, currently in no acute distress. HEENT: Atraumatic, normocephalic. Oral mucous membranes cannot be visualized. Conjunctivae are pale. Neck: Has a right intrajugular catheter in place without edema, erythema, or drainage to the site. Cardiovascular: Heart rate is regular. Respiratory: Lung sounds are clear to auscultation in the upper and middle lobes. Diminished in the bases. Abdomen: Soft, with midline incision clean and dry with ame and retention sutures in place. Bowel sounds are active. The patient does have an NG tube and is receiving tube feedings. Neurologic: She is lethargic but arousable and will open her eyes, but is not following commands or verbalizing. LABORATORY AND X-RAY: None available today. ASSESSMENT AND PLAN: Ms. Robert is status post abdominal surgery for small bowel obstruction and has had a pneumonia. We will recheck blood work and a chest x-ray in the morning. She is receiving meropenem and vancomycin which we will continue at this time. These plans have been discussed with and recommended by Dr. Morejon. COMORBIDITIES: For the patient include that she is elderly with a history of medical noncompliance. Dictated by HO Marina for Zackary Morejon MD cc: MD Lázaro Ray MD
[2019-08-07] MEDS: PROTONIX IV SCH (20:12)
[2019-08-07] MEDS: SODIUM CHLORIDE 0.9% INJ SCH (20:13)
[2019-08-08] MEDS: HUMALOG SUBQ SCH ×6 (01:11→23:48)
[2019-08-08] MEDS: MERREM 1 GM in NS 50 ML IV SCH ×3 (04:51→21:52)
[2019-08-08] MEDS: LOVENOX SUBQ SCH (05:20)
[2019-08-08 07:13] LABS: BASO# 0.08 X1000 (0.0-0.2); BASO% 1.5 % (0.0-0.8); EOS# 0.29 X1000 (0.0-0.7); EOS% 5.4 % (0.0-10.0); HEMATOCRIT 34.6 % (37.0-47.0); HEMOGLOBIN 10.7 g/dL (12.0-16.0); IMM GRAN# 0.02 X1000 (0.0-0.04); IMM GRAN% 0.4 % (0.0-0.5); LYMPH# 1.03 X1000 (1.2-3.4); LYMPH% 19.1 % (20.5-51.1); MCH 31.2 PG (27-31); MCHC 30.9 g/dL (33-37); MCV 100.9 FL (81-99); MONO# 0.54 X1000 (0.11-0.59); MPV 11.8 FL (7.4-10.4); NEUT# 3.42 X1000 (1.4-6.5); NEUT% 63.6 % (42.2-75.2); PLT 123 X1000 (130-400); RBC 3.43 XMIL (4.2-5.4); RDW 20.1 % (11.5-14.5); WBC 5.38 X1000 (4.8-10.8)
--- NOTE | 2019-08-08 07:40 | Diag Imaging Result Doc PS360 ---
EXAM: CHEST-PORTABLE INDICATION: pneumonia TECHNIQUE: One view COMPARISON: 08/04/2019 FINDINGS: The weighted feeding tube has been retracted and the tip is now malpositioned projecting over the upper esophagus. The right central line is in stable position. Dense bilateral opacities with an upper lobe predominance are essentially stable given differences in exposure. No new consolidation is identified. Cardiac silhouette is stable. IMPRESSION: Interval retraction of the NG tube with the tip now projecting over the upper esophagus. Essentially stable chest, otherwise. Electronically signed by José Miguel Ballesteros 08/08/2019 7:38 AM
[2019-08-08 07:45] LABS: AGAP 8; ALB/GLOB RATIO 0.9; ALBUMIN 2.7 g/dL (3.5-5.0); ALKALINE PHOSPHATASE 152 U/L (32-104); BUN 15 mg/dL (8-22); CALCIUM 8.5 mg/dL (8.8-10.2); CHLORIDE 110 mmol/L (98-107); COSMO 289; CREATININE 0.4 mg/dL (0.5-0.9); ESTIMATED GFR > 60; GLUCOSE 127 mg/dL (70-104); GOT 40 U/L (10-30); GPT 53 U/L (10-36); POTASSIUM 3.5 mmol/L (3.5-5.1); SODIUM 144 mmol/L (136-145); TCO2 26 mmol/L (25-35); TOTAL BILIRUBIN 0.53 mg/dL (0.20-1.00); TOTAL PROTEIN 5.6 g/dL (6.3-8.3)
--- NOTE | 2019-08-08 08:55 | PROGRESS NOTE ---
DATE: 08/08/2019 Ms. Robert continues to get tube feeding through a nasogastric tube at 60 mL an hour. This is at 1.2 calories per mL. She is tolerating that well. Her midline incision is slow to heal because of her nutrition, but there are no complications involving this wound. She is awake, but she is not eating on her own. cc: MD Lázaro Hyman MD MTDD
--- NOTE | 2019-08-08 09:03 | PROGRESS NOTE ---
DATE: 08/08/2019 SUBJECTIVE: The patient was sitting in bed with eyes open. She spoke to me in full sentences for the first time since her hospitalization began. I cannot say that her commentary or answers were appropriate to the conversation, but she certainly had fluent speech and was responsive. OBJECTIVE: Vital Signs: Temperature 97.7, pulse rate 107, respiratory rate 17, blood pressure 165/94, and 96% oxygen saturated on room air. General: On physical exam, as stated earlier the patient is awake, alert. She is not oriented. Her speech is fluent. Lungs: The lungs sound a bit more congested today. She is slightly tachypneic, and although I do not hear an audible wheeze on auscultation, her breathing has a wheezy quality to it. Cardiovascular: Regular at approximately 100 beats per minute at the time of my examination. Abdomen: Shows bowel sounds are present, but she is distended and apparently has air-filled abdominal cavity by exam. LABORATORY: White cell count 5.3, hemoglobin 10.7, potassium 3.5, BUN 15, creatinine 0.4, blood sugar 170. ASSESSMENT AND PLAN: 1. The patient is getting long-term nutrition per feeding tube. The chest x-ray today showed that the tip of that feeding tube was in the improper position in the mid esophagus when it needs to be down in the stomach. I have written orders to have them adjust that and hold tube feeds until we get that back in place. I have written a consult for gastrointestinal to put in a percutaneous endoscopic gastrostomy tube. I have not seen family again today for permission. This is the fifth day on rounds that I have not seen anyone from the family present. 2. The patient is status post laparotomy for small bowel obstruction. There was a large gaseous bubble in the bottom edge of her chest x-ray today. I am going to get a KUB to get a little bit better look at the gut itself. I am not sure what part the misaligned feeding tube might play in this. Surgery is still following in the periphery. 3. The patient's respiratory failure had more or less resolved by yesterday. She seems to be struggling a little bit more today, although she is not in distress. Her fluid balance has been reasonable, but we may need to administer some mild diuretic going down the line. 4. Mental status was basically at baseline today. This includes fluent speech, but commentary which was not relevant to the conversation or questioning. The patient's son has durable power of managing attorney. 5. The patient was previously anemic and had transfusion of 2 units. We are continuing to follow this. 6. The infectious disease note by Dr. Morejon' MINERAL SURVEYOR mentions continuing antibiotics. I am wondering if we have reached the limit of what those can or would do for her. 7. Do Not Resuscitate level 1. cc: Lázaro Boykin MD
--- NOTE | 2019-08-08 09:21 | Diag Imaging Result Doc PS360 ---
EXAM: KUB ABDOMEN INDICATION: abdominal distention TECHNIQUE: One view COMPARISON: 07/29/2019 FINDINGS: Midline skin ame are again noted indicating a recent laparotomy. There are a few mildly gas distended loops of small bowel in the mid abdomen that are nonspecific, possibly related to ileus. The stomach is also distended. No large volume free abdominal gas is appreciated. IMPRESSION: Nonspecific mildly gas distended loops of small bowel and gaseous distention of the stomach. Consider mild ileus. Electronically signed by José Miguel Ballesteros 08/08/2019 9:19 AM
[2019-08-08] MEDS: VANCOMYCIN 1 GM in NS 250 ML IV SCH (09:27)
--- NOTE | 2019-08-08 10:56 | Diag Imaging Result Doc PS360 ---
EXAM: CHEST/ABD TUBE PLACEMENT INDICATION: NG tube placement confirmation TECHNIQUE: One view COMPARISON: 08/08/2019 FINDINGS: The weighted feeding tube has been advanced. The tip projects well below the diaphragm and is assumed to be in the lumen of the stomach in the expected position. Otherwise, the chest appears stable. IMPRESSION: Interval advancement of the feeding tube, which now appears to be in the expected position. Electronically signed by José Miguel Ballesteros 08/08/2019 10:53 AM
--- NOTE | 2019-08-08 11:45 | GASTROENTEROLOGY PROGRESS NOTE ---
DATE: 08/08/2019 SUBJECTIVE: Ms. Robert is a 69-year-old -[place] female resting in bed. Nursing staff at the bedside. The patient did not speak to me. She was just nodding her head. The patient is on soft restraints and has an NG tube in place. OBJECTIVE: Vital Signs: Temperature 97.7 degrees, pulse 107, respirations 17, blood pressure 165/94, oxygen saturation 96% on room air. The patient's weight is 120 pounds. BMI is 21.3 kg/m2. General: Unable to assess the patient as patient did not speak to me at all. HEENT: Pale conjunctivae. No icterus. PERRL. Neck is supple. No icterus. NG tube in place. Lungs: Clear to auscultation. Cardiovascular: Patient is tachycardic. Abdomen: Soft, nondistended. She has a midline abdominal incision. Extremities: No clubbing, no cyanosis, no edema. Pedal pulses 2+ present bilaterally. Neurologic: The patient is awake, but she is not able to answer any questions, she is just nodding her head. LABORATORY DATA: WBCs of 5.38, RBC 3.43, hemoglobin 10.7, hematocrit is 34.6, platelet count is 123,000. Sodium 144, potassium 3.5, chloride 110, carbon dioxide 26, anion gap 8, BUN 15, creatinine is 0.4, glucose 127, calcium 8.5, total bilirubin 0.53, AST 40, ALT 53, alkaline phosphatase is 152, albumin is 2.7. Abdominal x-ray today showed that there are nonspecific mildly gas distended loops of small bowel and gaseous distention of the stomach. Consider mild ileus. A chest x-ray today has showed interval retraction of the NG tube with the tip now projecting over the upper esophagus, essentially stable chest. IMPRESSION AND PLAN: 1. Dysphagia. 2. Acute respiratory failure. 3. Bilateral pneumonia. 4. Small bowel obstruction s/p surgery 5. Congestive heart failure with EF 35% 6. Elevated liver enzymes. 7. Protein calorie malnutrition. 8. Diabetes. 9. Dementia. PLAN: Ms. Robert is a 69-year-old female. GI has been consulted for her PEG tube placement. The patient is currently receiving Protonix 40 mg IV daily. She is on antibiotics, Merrem and vancomycin. Patient is on a bowel regimen, MiraLAX 17 g. The patient is receiving tube feeding via her NG tube. She is receiving 1.2 thuan @ 60 m/hr. Patient recently had a small bowel obstruction s/p surgery with midline incision, we will hold off on putting the peg tube for now We will continue to monitor the patient and follow the plan of care per PCP. This plan was discussed with Dr. Alegria. Please call us for any further questions or concerns. Dictated by HO Acevedo for Caio Alegria MD Physician Attestation I have seen and examined the patient. I have discussed and reviewed the note by Cele TEAGUE and agree with findings and plan as documented. In brief, Ms. Yves Robert is a 69 year old woman with CHF, dementia, DM2 who presented with SBO s/p ex-lap and lysis of adhesions on 07/21 whose course c/b bilateral pneumonia, acute respiratory failure. GI consulted for possible PEG placement. Last KUB showed distended stomach and possible mild ileus. She is tolerating DHT feeds currently. Speech evaluation is still pending. Midline incision is C/D/I and abdomen is mildly tender throughout, tympanic, but non- distended. Will obtain KUB again in AM and await speech recs. cc: Lázaro Boykin MD [facility]
--- NOTE | 2019-08-08 11:48 | PROVIDER PROGRESS NOTE ---
Progress Note Dr. Heaton Progress Note/Pulmonary and or critical care We appreciated progress of care, Complications, change in diagnosis, and instructions to patient under direct supervision of Dr. Heaton. Subjective: We note the level of consciousness, bed (chair) position, family presence (if any), level of lethargy, feeling of symptoms, and changes from baseline condition/symptom. The patient is lying in bed with some acute stress noted. She c/o pain, but cant tell where the pain is. She apparently just had a NG tube placement, which has been confirmed by x ray. Abdominal x ray this am showed mild ileus. Her BP has been elevated as morning BP med has been held for NG tube placement. Objective: Vital Signs: We reviewed EMR current values for Pulse rate, Blood pressure, Pulse rate, respiratory rate and Pulse oximetry. Also noted other values and trends if present (e.g. I/O, CVP). Vital Signs 08/07/19 15:13 08/07/19 20:00 08/08/19 00:00 Temperature 98.4 F 97.9 F 98.1 F Pulse Rate 91 H 96 H 96 H Respiratory Rate 20 18 20 Blood Pressure 148/82 159/81 145/66 O2 Sat by Pulse Oximetry 95 96 96 08/08/19 04:00 08/08/19 07:16 08/08/19 11:40 Temperature 97.9 F 97.7 F 97.9 F Pulse Rate 106 H 107 H 94 H Respiratory Rate 19 17 20 Blood Pressure 160/93 165/94 174/93 O2 Sat by Pulse Oximetry 94 L 96 99 Intake & Output 08/07/19 08/08/19 08/08/19 19:59 07:59 19:59 Intake Total 796 / 1612 816 / 1612 250 / 250 Output Total 900 / 1949 1050 / 1950 700 / 700 Balance -104 / -338 -234 / -338 -450 / -450 Intake: Intake, IV Amount 56 / 56 Intake, IVPB 250 / 250 Intake, Oral Amount 0 / 0 Intake, Tube Feeding Amount 545 / 1305 760 / 1305 Intake, Tube Irrigant Amount 251 / 251 Output: Output, Urine Griffith Amount / 1950 1050 / 1950 700 / 700 Other: NG/Feeding Tube Residual Check Yes: 30 & Amount Number of Bowel Movements 0 1 1 Bowel Movement Color and Liquid Character Brown Green Physical Examination: General: Chronically ill appearing. Lying in bed with some mild distress noted. HEENT: Atraumatic. Normocephalic. Trachea midline. NGT in place. Mucus pink and slightly dry. Chest: Desmond and unlabored. No increased work of breathing or filtering machine tender helper muscle use. Symmetrical excursion. Auscultation reveals diminished breathing bilaterally. CVS: S1 and S2 noted. Abdomen: Soft. Bowel sounds present. Nondistended. Surgical incision in the abd midline is dry and clean. Extremities: No pedal edema. Neuro: Alert. Complaining of pain, but no answering questions or following commands. Labs and Radiology: Reviewed available labs and radiology values available at time of EMR review. Laboratory Results 08/07/19 08/07/19 08/08/19 16:47 21:07 01:09 WBC RBC Hgb Hct MCV MCH MCHC RDW Std Deviation Plt Count MPV Immature Gran % (Auto) Neut % (Auto) Lymph % (Auto) Whitley % (Auto) Eos % (Auto) Baso % (Auto) Immature Gran # (Auto) Neut # (Auto) Lymph # (Auto) Whitley # (Auto) Eos # (Auto) Baso # (Auto) Sodium Potassium Chloride Carbon Dioxide Anion Gap BUN Creatinine Estimated GFR/1.73 m2 BUN/Creatinine Ratio Glucose POC Glucose 130 H 181 H 124 H Calculated Osmolality Calcium Total Bilirubin AST ALT Alkaline Phosphatase Total Protein Albumin Globulin Albumin/Globulin Ratio Random Vancomycin 08/08/19 08/08/19 08/08/19 05:00 06:30 06:30 WBC 5.38 RBC 3.43 L Hgb 10.7 L Hct 34.6 L MCV 100.9 H MCH 31.2 H MCHC 30.9 L RDW Std Deviation 20.1 H Plt Count 123 L MPV 11.8 H Immature Gran % (Auto) 0.4 Neut % (Auto) 63.6 Lymph % (Auto) 19.1 L Whitley % (Auto) 10.0 H Eos % (Auto) 5.4 Baso % (Auto) 1.5 H Immature Gran # (Auto) 0.02 Neut # (Auto) 3.42 Lymph # (Auto) 1.03 L Whitley # (Auto) 0.54 Eos # (Auto) 0.29 Baso # (Auto) 0.08 Sodium 144 Potassium 3.5 Chloride 110 H Carbon Dioxide 26 Anion Gap 8 BUN 15 Creatinine 0.4 L Estimated GFR/1.73 m2 > 60 BUN/Creatinine Ratio 38 Glucose 127 H POC Glucose 170 H Calculated Osmolality 289 Calcium 8.5 L Total Bilirubin 0.53 AST 40 H ALT 53 H Alkaline Phosphatase 152 H Total Protein 5.6 L Albumin 2.7 L Globulin 2.9 Albumin/Globulin Ratio 0.9 Random Vancomycin 17.30 08/08/19 08/08/19 08:40 12:51 WBC RBC Hgb Hct MCV MCH MCHC RDW Std Deviation Plt Count MPV Immature Gran % (Auto) Neut % (Auto) Lymph % (Auto) Whitley % (Auto) Eos % (Auto) Baso % (Auto) Immature Gran # (Auto) Neut # (Auto) Lymph # (Auto) Whitley # (Auto) Eos # (Auto) Baso # (Auto) Sodium Potassium Chloride Carbon Dioxide Anion Gap BUN Creatinine Estimated GFR/1.73 m2 BUN/Creatinine Ratio Glucose POC Glucose 133 H 163 H Calculated Osmolality Calcium Total Bilirubin AST ALT Alkaline Phosphatase Total Protein Albumin Globulin Albumin/Globulin Ratio Random Vancomycin Dr. Heaton evaluated and additional note below. Evaluation time in minutes: 10 minutes. Assessment: DNR1 Postoperative respiratory failure, extubated on 07/23/2019. Improved. On room air. Bilateral pneumonia with small pleural effusions and pulmonary edema. Improved. Small bowel obstruction s/p laparotomy and adhesolysis on 07/21/19 Congestive heart failure with estimated left EF 30-35% with severe hypokinesis to akinesis of the apical anteroseptal region and apex LFTs elevation. Improving. Protein calorie malnutrition Dementia with diffuse cerebral atrophy Plan: Continue current treatment and supportive care per admitting and other teams on the case. Antibiotics including meropenem and vancomycin per Dr. Morejon. Appropriate DVT and GI prophylaxis. Input was appreciated from Admitting MD and other teams on the case.
[2019-08-08] MEDS: DIOVAN PO SCH (11:55)
[2019-08-08] MEDS: LOPRESSOR NG SCH ×3 (11:56→17:32)
[2019-08-08] MEDS: MIRALAX PO SCH (11:56)
--- NOTE | 2019-08-08 19:39 | INFECTIOUS DISEASE PROGRESS NO ---
DATE: 08/08/2019 PRESENT ILLNESS: The patient is being treated for bilateral pneumonia. There may be a component of pulmonary venous congestion. The patient is status post exploratory laparotomy with lysis of adhesions for small bowel obstruction. The most recent x-ray of the abdomen shows that the patient has findings consistent with ileus. MEDICATIONS: This is the 9th day of meropenem and the 6th day of vancomycin. PHYSICAL EXAMINATION: Vital Signs: Temperature is 98.5 degrees, pulse 98, respirations 20, blood pressure 162/94. General: This is a chronically ill-appearing, elderly female. She is in no acute distress. Head/eyes/ears/nose/throat: She appeared to be able to hear my spoken words. I did not see any white patches in her mouth. There was no drainage from her nose or ears. The patient has a nasogastric tube in place also. Neck: The patient has a right intrajugular catheter in place without edema or drainage. Respiratory: Lungs are clear to auscultation. Cardiovascular: Heart rate is regular. Abdomen: Soft, it is not tender to light palpation. The incision is intact. Neurologic: The patient today is awake. She did move her extremities to request. LAB AND X-RAY: Chest x-ray shows bilateral infiltrates. X-ray of the abdomen shows findings consistent with an ileus. CBC shows a white count of 5380, hemoglobin 10.7, platelet count 123,000. Creatinine is 0.4. GFR is greater than 60, alkaline phosphatase is 152. ASSESSMENT AND PLAN: The patient has pulmonary infiltrates. I believe she does have pneumonia. There could be a component of venous congestion. I am going to continue with the patient's antibiotics, namely meropenem and vancomycin, and I have also ordered a procalcitonin level for tomorrow. COMORBIDITIES: The patient is elderly and she has a history of medical noncompliance. cc: MD Lázaro Ray MD
[2019-08-08] MEDS: SODIUM CHLORIDE 0.9% INJ SCH (21:52)
[2019-08-08] MEDS: PROTONIX IV SCH (21:52)
[2019-08-09] MEDS: HUMALOG SUBQ SCH ×5 (00:53→18:03)
[2019-08-09] MEDS: VANCOMYCIN 1 GM in NS 250 ML IV SCH (03:45)
[2019-08-09] MEDS: MERREM 1 GM in NS 50 ML IV SCH ×2 (05:45→12:40)
[2019-08-09] MEDS: LOVENOX SUBQ SCH (06:38)
--- NOTE | 2019-08-09 07:42 | Diag Imaging Result Doc PS360 ---
KUB ABDOMEN - 08/09/2019 INDICATION: evaluate for constipation or obstruction COMPARISON: 08/08/2019 FINDINGS: Stable weighted feeding tube in the stomach. There is been slight decrease in the gastric distention with gas. There is overall decrease in the slightly gas distended loops of small bowel throughout the abdomen as well. No definite free air. IMPRESSION: Improvement in the gaseous distention of the stomach and small bowel. Electronically signed by Fred Beach 08/09/2019 7:40 AM
--- NOTE | 2019-08-09 07:59 | PROGRESS NOTE ---
DATE: 08/09/2019 SUBJECTIVE: Ms Robert is awake this morning. Her tube feeding is going at 60 mL an hour, Vital HN. She seems to be tolerating this tube feeding. She has had a bowel movement yesterday. A flat plate abdominal film showed some gaseous dilatation of her small bowel but there was also gas in her colon. PLAN: I think we need to continue her tube feeding. Her midline incision is healing without complication. We will leave her retention sutures and skin clips in place. This wound has been slow to heal because of her nutrition status. cc: MD Lázaro Hyman MD
[2019-08-09] MEDS: MIRALAX PO SCH (09:34)
[2019-08-09] MEDS: DIOVAN PO SCH (09:36)
[2019-08-09] MEDS: LOPRESSOR NG SCH ×3 (09:36→18:03)
--- NOTE | 2019-08-09 11:34 | PROVIDER PROGRESS NOTE ---
Progress Note Dr. Heaton Progress Note/Pulmonary and or critical care We appreciated progress of care, Complications, change in diagnosis, and instructions to patient under direct supervision of Dr. Heaton. Subjective: We note the level of consciousness, bed (chair) position, family presence (if any), level of lethargy, feeling of symptoms, and changes from baseline condition/symptom. The patient is lying in bed with eyes closed. It appears that she is sleeping. She is on room air. No snoring noted. Her daughter is at the bedside. She states that the patient needs some appetite stimuli and behavior consult to help her start eating by herself. Objective: Vital Signs: We reviewed EMR current values for Pulse rate, Blood pressure, Pulse rate, respiratory rate and Pulse oximetry. Also noted other values and trends if present (e.g. I/O, CVP). Vital Signs 08/08/19 11:40 08/08/19 15:11 08/08/19 20:00 Temperature 97.9 F 98.5 F 98.7 F Pulse Rate 94 H 98 H 90 Respiratory Rate 20 20 16 Blood Pressure 174/93 162/94 159/87 O2 Sat by Pulse Oximetry 99 97 98 08/09/19 00:00 08/09/19 04:00 08/09/19 07:00 Temperature 98.4 F 97.7 F 98.0 F Pulse Rate 99 H 100 H 98 H Respiratory Rate 20 18 20 Blood Pressure 159/77 163/84 154/87 O2 Sat by Pulse Oximetry 100 99 100 Intake & Output 08/08/19 08/09/19 08/09/19 19:59 07:59 19:59 Intake Total 250 / 845 595 / 845 262 / 262 Output Total 2099 Balance -450 / -1255 -805 / -1255 262 / 262 Intake: Intake, IVPB 250 / 250 Intake, Oral Amount 0 / 0 Intake, Tube Feeding Amount 595 / 595 262 / 262 Output: Output, Urine Griffith Amount 2099 Other: NG/Feeding Tube Residual Check Yes: 30 & Amount Number of Bowel Movements 1 Physical Examination: General: Chronically ill appearing. Lying in bed with no acute distress noted. HEENT: Atraumatic. Normocephalic. Trachea midline. NGT in place. Mucus pink and slightly dry. Chest: Desmond and unlabored. No increased work of breathing or deputy chief executive muscle use. Symmetrical excursion. Clear to auscultation bilaterally. CVS: S1 and S2 noted. Abdomen: Soft. Bowel sounds present. Nondistended. Surgical incision in the abd midline is dry and clean. Extremities: No pedal edema. Neuro: Sleeping. Labs and Radiology: Reviewed available labs and radiology values available at time of EMR review. Laboratory Results 08/08/19 08/08/19 08/08/19 12:51 16:32 22:46 POC Glucose 163 H 105 H 158 H D 08/09/19 08/09/19 08/09/19 00:39 05:01 08:21 POC Glucose 143 H [address] Heaton evaluated and additional note below. Evaluation time in minutes: 10 minutes. Assessment: DNR1 Postoperative respiratory failure, extubated on 07/23/2019. Improved. On room air. Bilateral pneumonia with small pleural effusions and pulmonary edema. Improved. Small bowel obstruction s/p laparotomy and adhesolysis on 07/21/19 Congestive heart failure with estimated left EF 30-35% with severe hypokinesis to akinesis of the apical anteroseptal region and apex LFTs elevation. Improving. Protein calorie malnutrition Dementia with diffuse cerebral atrophy Plan: Continue current treatment and supportive care per admitting and other teams on the case. Antibiotics including meropenem and vancomycin per Dr. Morejon. Appropriate DVT and GI prophylaxis. Input was appreciated from Admitting MD and other teams on the case.
--- NOTE | 2019-08-09 15:38 | INFECTIOUS DISEASE PROGRESS NO ---
DATE: 08/09/2019 PRESENT ILLNESS: Ms. Robert has bilateral pneumonia. She is status post exploratory laparotomy with lysis of adhesions for small bowel obstruction. MEDICATIONS: Today is day 10 of meropenem 1 g IV every 8 hours and day 7 of vancomycin IV per pharmacy dosing. PHYSICAL EXAMINATION: Vital Signs: Temperature is 97.5 degrees, pulse rate 87, respiratory rate 22, blood pressure 155/94, O2 saturation 100% on room air. General: This is a chronically ill- appearing, elderly female. She is lying in bed, currently in no acute distress but does have bilateral soft wrist restraints in place. HEENT: Atraumatic, normocephalic. Oral mucous membranes cannot be visualized. Conjunctivae are pale. Neck: Supple with a central line in place to the right intrajugular. That site without edema, erythema, or drainage. There is an NG tube with tube feedings infusing. Respiratory: Lung sounds have rhonchi noted bilaterally. No work of breathing is noted. Cardiovascular: Heart rate and rhythm are regular. Normal sinus rhythm on the monitor. Abdomen: Soft, round, and tender to palpation. The midline abdominal incision has ame and retention sutures in place without erythema, edema, or drainage noted. Neurologic: She is drowsy and lethargic but arousable and would not follow commands. LABORATORY AND X-RAY: No labs today, however her abdominal x-ray showed improvement in gaseous distention of stomach. ASSESSMENT AND PLAN: Ms. Robert is being treated for bilateral pneumonia and is receiving meropenem and vancomycin which we will continue. A procalcitonin has been ordered and is pending. These plans have been discussed with and recommended by Dr. Morejon. COMORBIDITIES: For Ms. Robert include that she is elderly with a history of medical noncompliance. Dictated by HO Marina for Zackary Morejon MD cc: MD Lázaro Ray MD
--- NOTE | 2019-08-09 16:49 | PROGRESS NOTE ---
DATE: 08/09/2019 SUBJECTIVE: The patient is lying in bed. She has some feces on her gown. She is awake and alert, interactive. She would speak to me in sentences. The relevance of those responses is very questionable, but nevertheless she retained her mental status from the previous day. OBJECTIVE: Vital Signs: 98.0, 98, 20, 154/87. PHYSICAL EXAMINATION: The patient is awake, alert. She is not oriented. She is conversive, but not appropriate.Lungs: Clear to auscultation. Cardiovascular: Regular. Abdomen: Her abdomen is slightly tender over the incision line. It was slightly distended she can hear her bowel sounds quite easily. LABORATORY: No labs were drawn today. ASSESSMENT AND PLAN: 1. The gastroenterology team did not want to put in a PEG tube at the present time because of her previous surgery. She is to continue a feeding tube in a nasogastric administration style. The feeding tube was advanced yesterday and she continues on tube feeds. 2. The patient is status post laparotomy for small bowel obstruction. Dr. Sarmiento is following. 3. Respiratory failure has resolved. 4. Mental status has improved and remains at her baseline level of function. 5. Previous anemia as noted. 6. Infectious disease medications were held by Dr. Morejon's team. 7. Do not resuscitate level 1. 8. It was reported to me that the patient's daughter from [place] came to visit today. I not present when she was there. I have not seen anyone else from the family. I am going to ask the social work to try and get us a permanent fpc placement. cc: Lázaro Boykin MD
--- NOTE | 2019-08-09 16:53 | GASTROENTEROLOGY PROGRESS NOTE ---
DATE: 08/09/2019 SUBJECTIVE: Ms. Robert is a 69-year-old female resting in bed. Nursing staff at the bedside. The patient was able to say good morning, but she was not able to tell her name and her date of . She just nodded her head when I asked her how she was feeling. Patient is on a soft restraint and has an NG tube in place. She is receiving NG tube feeding Vital 1.2 thuan at 60 mL per hour and as per nursing staff, the patient is tolerating her feedings well. She did have 2 bowel movements today. OBJECTIVE: Vital Signs: Temperature 97.5 degrees, pulse 87, respirations 22, blood pressure 155/94, oxygen saturations 96% on room air. Patient's weight is 111 pounds. BMI is 19.7 kg/m2. General: The patient is awake, not alert and oriented. HEENT: Pale conjunctivae. No icterus. PERRL. NG tube in place. Neck: Supple. Lungs: Clear to auscultation. Cardiovascular: Regular rate and rhythm. Abdomen: Soft, nontender, nondistended. Midline incision is dry and intact. Extremities: No clubbing. No cyanosis. No edema. Pedal pulses 2+ present bilaterally. Neurologic: The patient is awake but not alert and oriented. LABS: From yesterday, WBCs are 5.38, RBC 3.43, hemoglobin 10.7, hematocrit is 34.6, platelet count is 123,000. The patient's chemistries are from 08/08, sodium is 144, potassium 3.5, chloride 110, carbon dioxide 26, anion gap 8, BUN 15 and creatinine 0.4, glucose 157, calcium 8.5, total bilirubin 0.53, AST is 40, ALT 53, alkaline phos 152. IMAGING: The patient's abdominal x-ray today showed improvement in the gaseous distention of her stomach and small bowel. IMPRESSION AND PLAN: 1. Dysphagia. 2. Acute respiratory failure- resolved. 3. Bilateral pneumonia. 4. Small bowel obstruction status post surgery. 5. Congestive heart failure with ejection fraction 35%. 6. Elevated liver enzymes. 7. Protein calorie malnutrition. 8. Diabetes. 9. Dementia. PLAN: Ms Robert is a 69-year-old female. GI has been consulted for PEG tube placement. Patient has an NG and is receiving feedings, Vital 1.2 thuan 60 mL/h and patient is tolerating her feedings well. Abdomen x-ray today has shown improvement of gaseous distention of the stomach and small bowel. The patient is receiving antibiotics Merrem and vancomycin for her bilateral pneumonia. We will hold off on putting her PEG tube due to her midline incision. We will continue to monitor the patient and follow the plan of care per PCP. This plan was discussed with Dr. Alegria. Please call us for any further questions or concerns. Dictated by HO Acevedo for Caio Alegria MD cc: Lázaro Boykin MD Physician Attestation I have seen and examined the patient. I have discussed and reviewed the note by Cele TEAGUE and agree with findings and plan as documented. In brief, Ms. Yves Robert is a 69 year old woman with CHF, dementia, DM2 who presented with SBO s/p ex-lap and lysis of adhesions on 07/21 whose course c/b bilateral pneumonia, acute respiratory failure. GI consulted for possible PEG placement. Per daughter, at bedside, patient has been refusing to interact and participate in patient care. She is concerned that her recently diagnosed dementia may be contributing. Speech was unable to evaluate patient. KUB shows resolved ileus, abdomen is soft, and she is tolerating TFs. Her daughter is also concerned that patient will pull out PEG once placed. Will continue GOC discussion with family and anticipate PEG tube placement on Wednesday, if amendable. JESSI
[2019-08-10] MEDS: MERREM 1 GM in NS 50 ML IV SCH ×4 (00:03→22:58)
[2019-08-10] MEDS: VANCOMYCIN 1 GM in NS 250 ML IV SCH ×2 (00:31→15:13)
[2019-08-10] MEDS: HUMALOG SUBQ SCH ×9 (00:39→22:52)
[2019-08-10] MEDS: LOVENOX SUBQ SCH (05:19)
[2019-08-10] MEDS: PRILOSEC NG SCH (06:48)
[2019-08-10] MEDS ORDERED: PRILOSEC PO SCH (07:00)
[2019-08-10] MEDS: DIOVAN PO SCH (08:28)
[2019-08-10] MEDS: LOPRESSOR NG SCH ×3 (08:28→18:34)
[2019-08-10] MEDS: MIRALAX NG SCH (08:29)
--- NOTE | 2019-08-10 13:10 | PROGRESS NOTE ---
DATE: 08/10/2019 SUBJECTIVE: The patient is awake and alert. She spoke a few sentences, nodded and grunted, but her responses were not really in keeping with the subject matter and we attempted to discuss. OBJECTIVE: Vital Signs: 97.7, 97, 20, 142/77, 98% saturated on room air. PHYSICAL EXAMINATION: General: The patient is lying in bed. She is emaciated. She has an NG tube in. She has partial restraint on her arms. Lungs: Clear. Cardiovascular: Regular. Abdomen: Slightly distended, but bowel sounds are present. Soft. She is generally nontender to my examination. LABORATORY: Blood sugars are reasonably well controlled. ASSESSMENT AND PLAN: 1. Dr. Alegria commented yesterday after talking with the daughter that he expects to put in a percutaneous endoscopic gastrostomy EG tube on Wednesday. I would agree with that general trajectory; that is the only way she can be able to continue to get tube feeds. Hopefully, they can put an abdominal binder on her to keep her from pulling it out and continue tube feedings that way. 2. Status post laparotomy for small-bowel obstruction. Last x-rays look better. Her abdominal exam appears improved. 3. Respiratory failure has resolved. 4. Mental status has improved slightly over the last few days, and remains stable at her baseline level of function. She still refuses to cooperate. She is incapable of making decisions on her own. 5. The patient was anemic postoperatively, but this seems to have resolved after appropriate treatment. 6. Dr. Zackary Morejon is recommending continuing the meropenem and vancomycin for pneumonia for a few more days. 7. Do not resuscitate level 1. 8. The patient will need long-term placement at discharge. I really do not think she has any rehabilitation potential, but that may be necessary in order to get her into a Medicaid skilled nursing situation. I am hopeful that case management social work can make appropriate arrangements for her going forward. cc: Lázaro Boykin MD
--- NOTE | 2019-08-10 14:08 | GASTROENTEROLOGY PROGRESS NOTE ---
DATE: 08/10/2019 SUBJECTIVE: Ms. Robert is a 69-year-old female. She is awake, but she did not speak to me at all. She was just nodding her head. She has an NG tube going on with feeding Vital 1.2 KANDY 60 mL/h. As per nursing staff, she is tolerating her feedings well. The nursing staff has denied the patient having any bowel movements today. OBJECTIVE: Vital Signs: Temperature 97.6 degrees, pulse 88, respirations 18, blood pressure 144/92, oxygen saturation 95% on room air. The patient's weight is 112 pounds. BMI is 19.9 kg/m. General: Patient is awake but not alert, oriented. HEENT: Pale conjunctivae. No icterus. AMANDA. NG tube in place. Neck: Supple. Lungs: Clear to auscultation. Cardiovascular: Regular rate and rhythm. Abdomen: Soft, nontender, nondistended. Midline incision is dry and intact with ame. Extremities: No clubbing, no cyanosis, no edema. Pedal pulses 2+ present bilaterally. Neurologic: Patient is awake but not alert and oriented. LABORATORY DATA: Hematology is from 08/08/2019. WBC is 5.38, RBC 3.43, hemoglobin 10.7, hematocrit is 34.6, platelet count is 123,000. The patient has no new chemistries. The patient's abdomen x-ray yesterday has shown improvement in the gaseous distention of the stomach and small bowel. IMPRESSION: 1. Small-bowel obstruction status post surgery. 2. Dementia. 3. Diabetes type 2. 4. Pneumonia. 5. Malnutrition. 6. Dysphagia. Ms Robert is a 69-year-old female. GI has been consulted for her PEG tube placement. The patient currently is on an NG tube and receiving feeding Vital 1.2 calories at 60 mL. The patient is tolerating her feeding well. The patient's abdominal x-ray has shown improvement in the gaseous distention of stomach and small bowel. DR. Alegria had talked with the daughter about replacing the PEG tube, but the daughter's concern is that since the patient has dementia, she might try to pull the PEG tube. We are awaiting for her daughter to give us consent to place the PEG tube. We will continue to monitor the patient and follow the plan of care per PCP. This plan was discussed with Dr. Camacho. Please call us for any further questions or concerns. Dictated by HO Acevedo for Brayan Camacho MD cc: MD Lázaro Garvin MD I have seen and examined the patient myself and I agree with the above plan of care. Please call us with any further questions or concerns. [facility]
--- NOTE | 2019-08-10 18:24 | PROVIDER PROGRESS NOTE ---
Progress Note Dr. Heaton Progress Note/Pulmonary and or critical care We appreciated progress of care, Complications, change in diagnosis, and instructions to patient under direct supervision of Dr. Heaton. Subjective: We note the level of consciousness, bed (chair) position, family presence (if any), level of lethargy, feeling of symptoms, and changes from baseline condition/symptom. The patient is lying in bed with no acute distress noted. She is on room air. She is smiling and nodding her head when we ask her questions, but not answering questions appropriately. Tube feeding is on. No family at the bedside. Objective: Vital Signs: We reviewed EMR current values for Pulse rate, Blood pressure, Pulse rate, respiratory rate and Pulse oximetry. Also noted other values and trends if present (e.g. I/O, CVP). Vital Signs 08/09/19 20:00 08/09/19 20:23 08/09/19 23:53 Temperature 98.1 F 97.5 F L Pulse Rate 89 70 Respiratory Rate 16 16 Blood Pressure 147/79 121/52 O2 Sat by Pulse Oximetry 100 99 100 08/10/19 04:00 08/10/19 07:36 08/10/19 09:40 Temperature 97.9 F 97.7 F Pulse Rate 98 H 97 H Respiratory Rate 16 20 Blood Pressure 152/84 142/77 O2 Sat by Pulse Oximetry 100 98 98 08/10/19 12:21 08/10/19 15:35 Temperature 97.6 F 97.7 F Pulse Rate 88 92 H Respiratory Rate 18 19 Blood Pressure 144/92 155/77 O2 Sat by Pulse Oximetry 95 97 Intake & Output 08/09/19 08/10/19 08/10/19 19:59 07:59 19:59 Intake Total 740 / 2086 1346 / 2086 795 / 795 Output Total 1100 / 2350 1250 / 2350 675 / 675 Balance -360 / -264 96 / -264 120 / 120 Intake: Intake, IV Amount 336 / 336 60 / 60 Intake, Oral Amount 0 / 0 Intake, Tube Feeding Amount 740 / 1460 720 / 1460 735 / 735 Intake, Tube Irrigant Amount 290 / 290 Output: Output, Urine Griffith Amount 1100 / 2350 1250 / 2350 675 / 675 Other: Percent of Meal Consumed Refused NG/Feeding Tube Residual Check Yes & Amount Number of Incontinent Voids 1 Number of Bowel Movements 2 0 Bowel Movement Color and Soft Character Liquid Physical Examination: General: Chronically ill appearing. Lying in bed with no acute distress noted. HEENT: Atraumatic. Normocephalic. Trachea midline. NGT in place. Mucus pink and slightly dry. Chest: Desmond and unlabored. No increased work of breathing or secondary school registrar muscle use. Symmetrical excursion. Clear to auscultation bilaterally. CVS: S1 and S2 noted. Abdomen: Soft. Bowel sounds present. Nondistended. Surgical incision in the abd midline is dry and clean. Extremities: No pedal edema. Neuro: A/O. Smiling and nodding head, but not answering questions appropriately. Not following simple commands. Labs and Radiology: Reviewed available labs and radiology values available at time of EMR review. Laboratory Results 08/08/19 08/09/19 08/10/19 16:21 20:45 00:40 POC Glucose 151 H 170 H Procalcitonin SEE COMMENTS 08/10/19 08/10/19 08/10/19 05:04 09:08 13:29 POC Glucose 129 H 143 H 158 H Procalcitonin 08/10/19 17:50 POC Glucose [address] Heaton evaluated and additional note below. Evaluation time in minutes: 10 minutes. Assessment: DNR1 Postoperative respiratory failure, extubated on 07/23/2019. Improved. On room air. Bilateral pneumonia with small pleural effusions and pulmonary edema. Improved. Small bowel obstruction s/p laparotomy and adhesolysis on 07/21/19 Congestive heart failure with estimated left EF 30-35% with severe hypokinesis to akinesis of the apical anteroseptal region and apex LFTs elevation. Improving. Protein calorie malnutrition Dementia with diffuse cerebral atrophy Plan: Continue current treatment and supportive care per admitting and other teams on the case. Antibiotics including meropenem and vancomycin per Dr. Morejon. Appropriate DVT and GI prophylaxis. Input was appreciated from Admitting MD and other teams on the case. Dr. Heaton did the evaluation, examination and management. ASSISTANT FACILITY MANAGER did the scribing/dictation for Dr. Heaton according to his directions.
[2019-08-11] MEDS: HUMALOG SUBQ SCH ×6 (02:03→20:56)
[2019-08-11] MEDS: MERREM 1 GM in NS 50 ML IV SCH ×3 (06:07→20:57)
[2019-08-11] MEDS: LOVENOX SUBQ SCH (06:07)
[2019-08-11] MEDS: PRILOSEC NG SCH (06:07)
[2019-08-11 07:21] LABS: BASO# 0.06 X1000 (0.0-0.2); BASO% 1.6 % (0.0-0.8); EOS# 0.19 X1000 (0.0-0.7); EOS% 5.1 % (0.0-10.0); HEMATOCRIT 30.8 % (37.0-47.0); HEMOGLOBIN 9.6 g/dL (12.0-16.0); LYMPH% 32.3 % (20.5-51.1); MCH 31.5 PG (27-31); MCHC 31.2 g/dL (33-37); MONO# 0.39 X1000 (0.11-0.59); MONO% 10.5 % (1.7-9.3); NEUT# 1.88 X1000 (1.4-6.5); NEUT% 50.5 % (42.2-75.2); PLT 200 X1000 (130-400); RBC 3.05 XMIL (4.2-5.4); RDW 19.4 % (11.5-14.5); WBC 3.72 X1000 (4.8-10.8)
[2019-08-11 08:12] LABS: AGAP 11; BUN 18 mg/dL (8-22); CALCIUM 8.9 mg/dL (8.8-10.2); CHLORIDE 105 mmol/L (98-107); COSMO 284; CREATININE 0.3 mg/dL (0.5-0.9); ESTIMATED GFR > 60; GLUCOSE 154 mg/dL (70-104); SODIUM 140 mmol/L (136-145); TCO2 24 mmol/L (25-35)
[2019-08-11] MEDS: VANCOMYCIN 1 GM in NS 250 ML IV SCH (09:09)
[2019-08-11] MEDS: DIOVAN NG SCH (09:25)
[2019-08-11] MEDS: LOPRESSOR NG SCH ×3 (09:27→18:06)
[2019-08-11] MEDS: MIRALAX NG SCH ×2 (09:28→09:33)
--- NOTE | 2019-08-11 10:56 | Diag Imaging Result Doc PS360 ---
EXAM: CHEST-PORTABLE HISTORY: feeding tube position TECHNIQUE: Single view COMPARISON: 08/08/2019 FINDINGS: No change in the right jugular line or in the nasogastric tube. Poor inspiratory effort. There are bilateral infiltrates. There are also small pleural effusions. No cardiomegaly. IMPRESSION: Mild interval worsening. Electronically signed by Peter Matthews 08/11/2019 10:53 AM
--- NOTE | 2019-08-11 13:40 | PROGRESS NOTE ---
DATE: 08/11/2019 SUBJECTIVE: The patient is awake in bed. She is kind of curled up today, and I noted that her feeding tube was quite long coming out of her nose and I wondered about positioning. There have been no reports of incidents overnight. Griffith catheter has been removed. There was a family member present, and I spoke with her at length. Unfortunately, this family member does not have durable power of real estate attorney; only the patient's son, Derick, has durable power for healthcare decisions. OBJECTIVE: Vital Signs: 97.7, 96, 19, 156/84, 100% saturated on room air. Lungs: On physical exam, the patient's lungs are clear. Cardiovascular: Regular. Abdomen: Abdomen is soft. I viewed a small early decubitus forming on her sacral area when we were cleaning her up. As stated earlier, the NG tube or feeding tube is pulled out. It appears to me we are going to check placement. Neurologic: The patient is awake and alert. She is not oriented. She can speak in some whole sentences, but they are not relevant to the conversation. LABORATORY: White cell count 3.7, hemoglobin 9.6, BUN 18, creatinine 0.3. ASSESSMENT AND PLAN: 1. The gastrointestinal team is apparently still looking for someone to sign off on the percutaneous endoscopic gastrostomy tube placement, which they are willing to do. Unfortunately, only the patient's son has official durable power of real estate attorney. She cannot be transferred to group home until she has that done. They are still seeking a group home bed. 2. Status post laparotomy for small bowel obstruction. This has resolved. 3. Respiratory failure has resolved. 4. Mental status is at baseline. She refuses to cooperate with eating. She is incapable of making decisions on her own. This is presumed to be due to early onset of severe dementia. 5. The patient has a moderate anemia probably associated with nutritional deficits and prolonged hospitalization. 6. Dr. Morejon is continuing meropenem and vancomycin for pneumonia. 7. She is do not resuscitate level 1. 8. I spoke again with the patient's relative who was there. I think the best option for her is to get a percutaneous endoscopic gastrostomy tube to be stabilized on tube feeds. She can be transferred to a permanent nursing facility with a do not resuscitate order and be put on hospice at that point. I think given the fact that she is unable or unwilling to get out of bed and/or feed herself, her life expectancy is fairly short. cc: Lázaro Boykin MD
--- NOTE | 2019-08-11 15:38 | GASTROENTEROLOGY PROGRESS NOTE ---
DATE: 08/11/2019 SUBJECTIVE: Ms. Robert is a 69-year-old - [place]ian female. She is awake, and talking, but she is not alert and oriented. The patient has an NG tube with feeding going on with Vital 1.2 KANDY at 60 mL/hour. The patient had 1 bowel movement today. OBJECTIVE: Vital signs: Temperature 98.4 degrees, pulse 89, respirations 16, blood pressure 138/71, oxygen saturation 100% on room air. The patient's weight is 106 pounds. BMI is 18.8 kg/m2. General: She is awake but not alert and oriented. HEENT: Pale conjunctivae. No icterus. PERRL. Nasogastric tube in place. Neck: Supple. Lungs: Clear to auscultation. Cardiovascular: Regular rate and rhythm. Abdomen: Soft, nontender, nondistended. Midline incision is dry and intact with ame. Extremities: No clubbing, no cyanosis, no edema. Pedal pulses 2+ present bilaterally. Neurologic: Patient is awake but not alert and oriented. LABORATORY DATA: WBCs are 3.72, RBC 3.05, hemoglobin is 9.6, hematocrit is 30.8, platelet count is 200,000. Sodium 140, potassium 4.0, chloride 105, carbon dioxide 24, anion gap 11, BUN 18, creatinine 0.3, glucose 154, calcium 8.9. IMAGING: The patient's chest x-ray today showed mild interval worsening. IMPRESSION AND PLAN: 1. Dysphagia. 2. Acute respiratory failure, resolved. 3. Bilateral pneumonia. 4. Small bowel obstruction status post surgery. 5. Congestive heart failure with ejection fraction 35%. 6. Elevated liver enzymes. 7. Protein-calorie malnutrition. 8. Diabetes. 9. Dementia. PLAN: Ms. Robert is a 69-year-old -[place] female. Gastroenterology has been consulted for a PEG tube placement. The patient is currently having an NG tube and receiving her feedings 1.2 KANDY at 60 mL/hour, and as per the nursing staff the patient is tolerating her feeding well. The patient's son has contacted Dr. Alegria and has agreed with the plan of doing an EGD with a PEG tube placement. We plan to put the PEG tube on Wednesday. We have discussed the risks, benefits, and alternatives of the procedure with the family. Family acknowledges understanding of the plan of care. Further plan of care will be based on the EGD with a PEG tube placement. This plan was discussed with Dr. Alegria. Please call us for any further questions or concerns. Dictated by HO Acevedo for Caio Alegria MD cc: Lázaro Boykin MD Physician Attestation I have seen and examined the patient. I have discussed and reviewed the note by Cele TEAGUE and agree with findings and plan as documented. In brief, Ms. Yves Robert is a 69 year old woman with CHF, dementia, DM2 who presented with SBO s/p ex-lap and lysis of adhesions on 07/21 whose course c/b bilateral pneumonia, acute respiratory failure, post-op ileus. GI consulted for possible PEG placement. She is tolerating DHT feeds at goal. Discussed PEG tube placement with son over phone who is amendable to placement. Will plan for PEG tube placement on Wednesday with Dr. Camacho. [facility]
--- NOTE | 2019-08-11 18:59 | INFECTIOUS DISEASE PROGRESS NO ---
DATE: 08/11/2019 PRESENT ILLNESS: The patient has bilateral pneumonia. I think it is complicated also by pulmonary venous congestion. She is status post exploratory laparotomy with lysis of adhesions for small bowel obstruction. MEDICATIONS: This is day 12 of ertapenem and day 9 of vancomycin. PHYSICAL EXAMINATION: Vital Signs: Temperature is 97.7 degrees, pulse 96, respirations 19, blood pressure is 156/84. General: This is a chronically ill and malnourished- appearing, elderly female. She is in no acute distress. Head/eyes/ears/nose/throat: She appears to be able to hear my spoken words. I do not know good her vision is. There are no white patches in her mouth. Neck: No pain with movement. She does have a right-sided intrajugular vein catheter in place. The site is not bleeding or purulent. Lungs: Clear to auscultation. Cardiovascular: Heart rate is regular. Abdomen: Soft and nontender. The patient has a midline incision which is intact. Neurologic: The patient is awake. She did not follow request to move her extremities. LAB AND X-RAY: Patient's chest x-ray shows bilateral infiltrates. CBC shows a white count of 3720, hemoglobin 9.6, and platelet count 200,000. Creatinine is 0.3. GFR is greater than 60. Procalcitonin is 0.67, which translates that the patient has pneumonia. ASSESSMENT AND PLAN: The patient has bilateral pneumonia as well as pulmonary venous congestion. I plan to continue meropenem and vancomycin over the weekend and then at the first of the week get a CBC, BMP and a portable chest x-ray. I think by then the patient should be rid of her pneumonia and can be discharged and the infiltrates that are seen are due to pulmonary venous congestion. COMORBIDITIES: The patient is elderly and she has a history of medical noncompliance. She is status post having surgery. cc: MD Lázaro Ray MD MTDD
[2019-08-11] MEDS: D50W SYRINGE IV PRN (20:49)
[2019-08-12] MEDS: MERREM 1 GM in NS 50 ML IV SCH ×7 (01:32→21:54)
[2019-08-12] MEDS: HUMALOG SUBQ SCH ×6 (01:33→21:52)
[2019-08-12] MEDS: VANCOMYCIN 1 GM in NS 250 ML IV SCH ×3 (02:47→22:02)
[2019-08-12] MEDS: LOVENOX SUBQ SCH (06:07)
[2019-08-12] MEDS: PRILOSEC NG SCH (06:07)
[2019-08-12] MEDS: DIOVAN NG SCH (11:09)
[2019-08-12] MEDS: MIRALAX NG SCH (11:09)
[2019-08-12] MEDS: LOPRESSOR NG SCH ×3 (11:10→18:00)
--- NOTE | 2019-08-12 12:12 | PROGRESS NOTE ---
DATE: 08/12/2019 Ms. Robert is resting comfortably in bed. She does not appear to have any respiratory distress. She does not have any witnessed coughing or increased work of breathing. She has been undergoing treatment for bilateral pneumonia following a laparoscopy for a small-bowel obstruction. She is maintaining O2 saturations of 98 to 100 percent on room air. She is tolerating tube feedings. Blood pressure is fairly stable. Systolic blood pressures are ranging from 135 to 146, whereas her diastolic blood pressures are in the 70s and 80s. She denies any chest pain, palpitations, or anginal equivalents. OBJECTIVE: Vital Signs: Temperature 98.1 degrees pulse 92, respirations 20, BP 146/76. CV: Regular rate and rhythm. Lungs: Clear. Abdomen: Soft, but mildly distended. She has good bowel sounds. No rebound or guarding. ASSESSMENT AND PLAN: 1. Bilateral bacterial pneumonia. Clinically, she continues to improve. She is breathing comfortably. She has minimal if any cough. We will continue meropenem and vancomycin per Dr. Morejon. 2. Hypertension. Her blood pressure is stable. We will continue her current regimen of medications. 3. Nutrition. She is tolerating tube feedings via an NG tube. GI Medicine has been consulted for consideration of placement of a percutaneous endoscopic gastrostomy tube. 4. Discharge planning. She does have a living will. She is a no code blue level 1. Dr. Boykin and her family are working toward penitentiary placement. cc: MD Lázaro Mills MD
--- NOTE | 2019-08-12 13:14 | PROGRESS NOTE ---
DATE: 08/12/2019 SUBJECTIVE: Ms. Robert continues to receive tube feeding at 60 mL an hour. This is Vital HN 1.2 calories/mL. She has not pulled the tube out. It seems to be functioning well. Her midline incision is healing without complication. cc: MD Lázaro Hyman MD
[2019-08-12] MEDS ORDERED: SODIUM CHLORIDE 0.9% INJ PRN (19:43)
[2019-08-12] MEDS ORDERED: PHENERGAN IV PRN (19:43)
[2019-08-13] MEDS: HUMALOG SUBQ SCH ×6 (00:38→21:50)
[2019-08-13] MEDS: MERREM 1 GM in NS 50 ML IV SCH ×4 (00:39→21:52)
[2019-08-13] MEDS: LOVENOX SUBQ SCH (05:26)
[2019-08-13] MEDS: PRILOSEC NG SCH ×2 (05:27→06:06)
[2019-08-13] MEDS: LOPRESSOR NG SCH ×3 (09:02→18:55)
[2019-08-13] MEDS: DIOVAN NG SCH (09:02)
[2019-08-13] MEDS: MIRALAX NG SCH (09:02)
[2019-08-13] MEDS: VANCOMYCIN 1 GM/NS 1 GM/250 ML IVPB IV SCH (09:03)
--- NOTE | 2019-08-13 09:58 | PROGRESS NOTE ---
DATE: 08/13/2019 SUBJECTIVE: Ms. Robert is resting in bed. She had several episodes of nausea and vomiting last night. We reduced the rate of tube feeding to 30 mL per hour. Her residuals are ranging from 10 mL to 30 mL. She has had no further nausea or vomiting. Rest breathing appears unlabored. She has no cough or pleuritic chest pain. She is undergoing treatment for bilateral pneumonia. O2 saturations are ranging from 97-100% on room air. OBJECTIVE: Temperature 97.6 degrees, pulse 89, respirations 16, blood pressure 149/65. CV: Regular rate and rhythm. Lungs: Clear. Abdomen: Soft, nontender, with active bowel sounds. No hepatosplenomegaly. No abdominal bruits. ASSESSMENT AND PLAN: 1. Bilateral bacterial pneumonia. Clinically, she continues to improve. We will continue meropenem and vancomycin per Dr. Morejon. 2. Nutrition. As she is having very low residuals and has had no further nausea or vomiting, we will increase the tube feedings back to 50 mL per hour. cc: MD Lázaro Mills MD
--- NOTE | 2019-08-13 23:46 | PROVIDER PROGRESS NOTE ---
Progress Note S: No acute overnight events. Unable to obtain ROS as patient is not talking with me. O: Last Vital Signs Temp 97.6 F 08/13/19 19:43 Pulse 71 08/13/19 19:43 Resp 15 08/13/19 19:43 BP 143/64 08/13/19 19:43 Pulse Ox 94 L 08/13/19 19:43 Height 5 ft 3 in Weight 101 lb GEN: awake, alert, NAD HEENT: anicteric, DHT in place NECK: supple, no JVD PULM: CTA anteriorly ABD: ND, BS present, stables in place, c/d/i EXT: no cce NEURO: moving all extremities, symmetrically LABS: None A/P: Ms. Yves Robert is a 69 year old woman with CHF, dementia, DM2 who presented with SBO s/p ex-lap and lysis of adhesions on 07/21 whose course c/b bilateral pneumonia, acute respiratory failure, post-op ileus. GI consulted for possible PEG placement. She is tolerating DHT feeds at goal. Son gave consent for PEG tube placement. Will plan for PEG tube placement on Wednesday with Dr. Camacho. # Dysphagia # SBO # Pneumonia # Dementia # Anemia # Severe protein calorie malnutrition Will follow with you
[2019-08-14] MEDS: HUMALOG SUBQ SCH ×6 (01:04→23:42)
[2019-08-14] MEDS: MERREM 1 GM in NS 50 ML IV SCH ×3 (05:59→21:56)
[2019-08-14] MEDS: LOVENOX SUBQ SCH (06:00)
[2019-08-14] MEDS: PRILOSEC NG SCH (06:00)
[2019-08-14 07:02] LABS: BASO# 0.19 X1000 (0.0-0.2); BASO% 4.4 % (0.0-0.8); EOS# 0.12 X1000 (0.0-0.7); EOS% 2.8 % (0.0-10.0); HEMATOCRIT 33.2 % (37.0-47.0); HEMOGLOBIN 10.2 g/dL (12.0-16.0); MCH 32.4 PG (27-31); MCHC 30.7 g/dL (33-37); MCV 105.4 FL (81-99); MPV 11.3 FL (7.4-10.4); NEUT# 1.88 X1000 (1.4-6.5); NEUT% 43.8 % (42.2-75.2); PLT 257 X1000 (130-400); RBC 3.15 XMIL (4.2-5.4); RDW 19.5 % (11.5-14.5); WBC 4.29 X1000 (4.8-10.8)
[2019-08-14 07:23] LABS: EOS 1 % (1-10); LYMPHS 38 % (21-51); MONO 10 % (1-9); SEGS 51 % (42-75)
[2019-08-14 07:32] LABS: AGAP 11; BUN 17 mg/dL (8-22); CALCIUM 9.6 mg/dL (8.8-10.2); CHLORIDE 104 mmol/L (98-107); COSMO 276; CREATININE 0.4 mg/dL (0.5-0.9); ESTIMATED GFR > 60; GLUCOSE 115 mg/dL (70-104); POTASSIUM 4.5 mmol/L (3.5-5.1); SODIUM 137 mmol/L (136-145); TCO2 22 mmol/L (25-35)
--- NOTE | 2019-08-14 07:45 | Diag Imaging Result Doc PS360 ---
EXAM: CHEST-1 VIEW INDICATION: pneumonia TECHNIQUE: One view COMPARISON: 08/11/2019 FINDINGS: The weighted NG tube has been retracted. The tip now projects over the region of the midesophagus. The right central line is stable. There has been some improvement of bilateral consolidations with an upper lung zone predominance. No new consolidation is identified. Cardiac silhouette is stable. IMPRESSION: 1.Interval retraction of the NG tube that is now malpositioned with the tip projecting over the mid esophagus. 2.Slight improvement of consolidations with an upper lung zone predominance. Electronically signed by José Miguel Ballesteros 08/14/2019 7:43 AM
[2019-08-14] MEDS: VANCOMYCIN 1 GM/NS 1 GM/250 ML IVPB IV SCH (09:22)
[2019-08-14] MEDS: LOPRESSOR NG SCH ×3 (09:22→17:28)
[2019-08-14] MEDS ORDERED: XYLOCAINE-MPF 2% ONE (09:32)
[2019-08-14] MEDS ORDERED: DIPRIVAN 1% ONE ×2 (09:32→11:55)
--- NOTE | 2019-08-14 12:30 | ENDOSCOPY OPERATIVE NOTE ---
[facility] ENDOSCOPY OPERATIVE NOTE , EGD WITH PEG PROCEDURE REPORT EXAM DATE: 08/14/2019 PATIENT NAME: Yves Robert MR #: [id number] BIRTHDATE: 1950 ATTENDING: Brayan Camacho MD STATUS: inpatient TEACHER SPECIALIST: Ashlee Kincaid and Michael Hernandez INDICATIONS: The patient is a 69 yr old female here for an EGD with PEG due to Dysphagia, Malnutriti on, Small bowel obstruction s/p laparotomy 3 weeks ago. PROCEDURE PERFORMED: EGD w/ percutaneous gastrostomy tube placement MEDICATIONS: Per Anesthesia TOPICAL ANESTHETIC: none CONSENT: The patient understands the risks and benefits of the procedure and understands that these r isks include, but are not limited to: sedation, allergic reaction, infection, perforation and/or bleeding. Alternative means of evaluation and treatment include, among others: physical exam, x-rays, and/or surgical intervention. The patient elects to proceed with this endoscopic procedure. HISTORY AND PHYSICAL: 08/14/2019 DESCRIPTION OF PROCEDURE: During pre-op preparation period all mechanical and medical equipment was c hecked for proper function. Hand hygiene and appropriate measures for infection prevention was taken. After the risks, benefits and alternatives of the procedure were thoroughly explained, Informed consent was verified, confirmed and timeout was successfully executed by the treatment team. The patient was anesthetized with topical anesthesia and the endoscope was introduced through the mouth and advanced to the second portion of the duodenum. The instrument was slowly withdrawn as the mucosa was fully examined. ESOPHAGUS: A 4 cm hiatal hernia was noted. The esophagus was otherwise normal. STOMACH: The mucosa of the stomach appeared normal. External bumper noted at 3 cms. DUODENUM: The duodenal mucosa showed no abnormalities in the duodenal bulb, 1st part duodenum, and 2n d part duodenum. The stomach was then inflated with air, and by a combination of transillumination and manual palpatio n, the site for the gastrostomy tube placement was selected and marked on the anterior abdominal wall. The skin of the a nterior abdomen was surgically prepped and draped with sterile towels. Utilizing strict sterile technique, the selected site was then anesthetized with 1% xylocaine by inje ction into the skin and subcutaneous tissue. A 1 cm incision was made through the skin and subcutaneous tissue, and the needle/cannula assembly was then passed through the abdominal wall and through the anterior wall of the stomach, debra ntaining visualization with the endoscope. A snare device previously placed through the instrument channel wa s then opened and placed around the cannula, the needle was removed, and the insertion wire was passed through the bhavik krzysztof and into the stomach lumen. The snare was then loosened from the cannula, and repositioned to snare the insertion wire. The snare was then pulled up to the endoscope distal tip, and the scope was then withdrawn bringing with it the snare and insertion wire. The insertion wire was then released from the snare, and then loop-attached to the Leoncio [employer] 24 Fr gastrostomy tube. Using the "pull technique", the G-tube was then pulled into place by traction on the insertion wire a t the abdominal wall end. The G-tube insertion site was then cleansed once again, and the external bolster was placed over the tube to secure it to the abdominal wall. A sterile dressing was then applied, and the procedure term inated. Retroflexion was performed in the stomach and revealed a hiatal hernia. The gastroscope was then slo wly withdrawn and removed. ADVERSE EVENT: There were no complications. IMPRESSIONS: 1. 4 cm hiatal hernia 2. The esophagus was otherwise normal 3. The mucosa of the stomach appeared normal 4. The duodenal mucosa showed no abnormalities in the duodenal bulb, 1st part duodenum, and 2nd part duodenum RECOMMENDATIONS: Nutrition consultation Abdominal Binder all the time Aspiration precautions PEG Ok to use after 4 hours. Change Dressing at PEG site every day for 1 week with Bacitracin Ointment. Please call us with any questions or concerns. REPEAT EXAM: Brayan Camacho MD eSigned: Brayan Camacho MD 08/14/2019 1:29 PM cc: CPT CODES: 01990 Upper gastrointestinal endoscopy including esophagus, stomach, and either the du odenum and/or jejunum as appropriate; with directed placement of percutaneous gastrostomy tube ICD CODES: 553.3 Diaphragmatic hernia without mention of obstruction or gangrene The ICD and CPT codes recommended by this software are interpretations from the data that the [facility] staff has captured with the software. The verification of the translation of this report to the ICD and CPT co jay and modifiers is the sole responsibility of the [facility] care institution and practicing physician where this report was generated. [employer] will not be held responsible for the validity of the ICD and CPT codes i ncluded on this report. AMA assumes no liability for data contained or not contained herein. CPT is a registered tra demark of the [employer] [employer]. PATIENT NAME: Yves Robert MR#: [id number]
--- NOTE | 2019-08-14 13:34 | PROVIDER PROGRESS NOTE ---
Progress Note Dr. Heaton Progress Note/Pulmonary and or critical care We appreciated progress of care, Complications, change in diagnosis, and instructions to patient. Subjective: We note the level of consciousness, bed (chair) position, family presence (if any), level of lethargy, feeling of symptoms, and changes from baseline condition/symptom. The patient is lying in bed with no acute distress noted. She is on room air. She was just transferred back from the OR. She has a PEG tube in place with bind er around the abdominal area. She appears very lethargic and is not responsive with verbal or physical stimuli. She does have some mild audible rattle noise with expiration. No family at the bedside. Objective: Vital Signs: We reviewed EMR current values for Pulse rate, Blood pressure, Pulse rate, respiratory rate and Pulse oximetry. Also noted other values and trends if present (e.g. I/O, CVP). Vital Signs 08/13/19 15:09 08/13/19 17:14 08/13/19 19:43 Temperature 97.7 F 97.6 F Pulse Rate 79 71 Respiratory Rate 18 15 Blood Pressure 143/72 143/64 O2 Sat by Pulse Oximetry 100 99 94 L 08/14/19 00:00 08/14/19 04:00 08/14/19 07:47 Temperature 98.2 F 97.8 F 98.3 F Pulse Rate 84 71 76 Respiratory Rate 15 18 16 Blood Pressure 138/65 149/76 161/77 O2 Sat by Pulse Oximetry 94 L 98 100 08/14/19 11:10 08/14/19 12:47 Temperature 98.3 F Pulse Rate 76 100 H Respiratory Rate 16 18 Blood Pressure 161/77 162/98 O2 Sat by Pulse Oximetry Intake & Output 08/13/19 08/14/19 08/14/19 19:59 07:59 19:59 Intake Total 720 / 934 214 / 934 Balance 720 / 934 214 / 934 Intake: Intake, IV Amount Intake, Tube Feeding Amount 720 / 920 200 / 920 Other: Percent of Meal Consumed 0 Number of Continent Voids Not 2 Measured Number of Incontinent Voids 1 Number of Bowel Movements 0 Physical Examination: General: Lying in bed with no acute distress noted. HEENT: Atraumatic. Normocephalic. Trachea midline. Mucus pink and slightly dry. Chest: Desmond and unlabored with mild expiratory audible rattle noise. No increased work of breathing or collision center manager muscle use. Symmetrical excursion. Clear to auscultation bilaterally. CVS: S1 and S2 noted. Abdomen: Soft. Bowel sounds present. Nondistended. PEG tube in place with binder type dressing around the abdominal area. Extremities: No pedal edema. Neuro: Lethargic. Labs and Radiology: Reviewed available labs and radiology values available at time of EMR review. Laboratory Results 08/13/19 08/13/19 08/13/19 13:30 16:59 21:40 WBC RBC Hgb Hct MCV MCH MCHC RDW Std Deviation Plt Count MPV Immature Gran % (Auto) Neut % (Auto) Lymph % (Auto) [place] % (Auto) Eos % (Auto) Baso % (Auto) Immature Gran # (Auto) Neut # (Auto) Lymph # (Auto) [place] # (Auto) Eos # (Auto) Baso # (Auto) Segmented Neutrophils Lymphocytes Monocytes Eosinophils Macrocytosis Sodium Potassium Chloride Carbon Dioxide Anion Gap BUN Creatinine Estimated GFR/1.73 m2 BUN/Creatinine Ratio Glucose POC Glucose 161 H 119 H 131 H Calculated Osmolality Calcium 08/14/19 08/14/19 08/14/19 00:18 06:11 06:35 WBC RBC Hgb Hct MCV MCH MCHC RDW Std Deviation Plt Count MPV Immature Gran % (Auto) Neut % (Auto) Lymph % (Auto) [place] % (Auto) Eos % (Auto) Baso % (Auto) Immature Gran # (Auto) Neut # (Auto) Lymph # (Auto) [place] # (Auto) Eos # (Auto) Baso # (Auto) Segmented Neutrophils Lymphocytes Monocytes Eosinophils Macrocytosis Sodium 137 Potassium 4.5 Chloride 104 Carbon Dioxide 22 L Anion Gap 11 BUN 17 Creatinine 0.4 L Estimated GFR/1.73 m2 > 60 BUN/Creatinine Ratio 43 Glucose 115 H POC Glucose 135 H 97 Calculated Osmolality 276 Calcium 9.6 08/14/19 08/14/19 06:35 09:18 WBC 4.29 L RBC 3.15 L Hgb 10.2 L Hct 33.2 L MCV 105.4 H MCH 32.4 H MCHC 30.7 L RDW Std Deviation 19.5 H Plt Count 257 MPV 11.3 H Immature Gran % (Auto) 0.0 Neut % (Auto) 43.8 Lymph % (Auto) 35.0 [place] % (Auto) 14.0 H Eos % (Auto) 2.8 Baso % (Auto) 4.4 H Immature Gran # (Auto) 0.00 Neut # (Auto) 1.88 Lymph # (Auto) 1.50 [place] # (Auto) 0.60 H Eos # (Auto) 0.12 Baso # (Auto) 0.19 Segmented Neutrophils 51 Lymphocytes 38 Monocytes 10 H Eosinophils 1 Macrocytosis 1+ Sodium Potassium Chloride Carbon Dioxide Anion Gap BUN Creatinine Estimated GFR/1.73 m2 BUN/Creatinine Ratio Glucose POC Glucose 103 Calculated Osmolality Calcium Assessment: DNR1 Postoperative respiratory failure, extubated on 07/23/2019. Improved. On room air. Bilateral pneumonia with small pleural effusions. Improved. Small bowel obstruction s/p laparotomy and adhesolysis on 07/21/19 Congestive heart failure with estimated left EF 30-35% with severe hypokinesis to akinesis of the apical anteroseptal region and apex Protein calorie malnutrition. PEG tube placement today. Dementia with diffuse cerebral atrophy Plan: Continue current treatment and supportive care per admitting and other teams on the case. Antibiotics including meropenem and vancomycin per Dr. Morejon. Appropriate DVT and GI prophylaxis. Input was appreciated from Admitting MD and other teams on the case. Evaluation time in minutes: 10 minutes.
[2019-08-14] MEDS: MIRALAX NG SCH (14:07)
[2019-08-14] MEDS: DIOVAN NG SCH (14:08)
--- NOTE | 2019-08-14 15:09 | PROGRESS NOTE ---
DATE: 08/14/2019 SUBJECTIVE: Ms. Robert successfully had a PEG tube placed in her stomach per Dr. Camacho today, and we can start changing her tube feeding from her nasogastric tube to her PEG tube per Dr. Camacho in his orders. Her midline incision is healing without complications. We have left the skin clips and retention sutures because of her malnutrition. We can reassess removal of some of the stitches at the time of her discharge. cc: MD Lázaro Hyman MD
--- NOTE | 2019-08-14 15:14 | INFECTIOUS DISEASE PROGRESS NO ---
DATE: 08/14/2019 ADDENDUM REPORT I want to add in the physical exam that the patient has on the right side of her neck a jugular venous catheter in place. The site is not bleeding or purulent. cc: MD Lázaro Ray MD
--- NOTE | 2019-08-14 17:14 | PROGRESS NOTE ---
DATE: 08/14/2019 SUBJECTIVE: The patient is awake and responsive, but does not make any sense. There is no family present. The patient's NG tube appears to be pulled out. It is disconnected from tube feedings at the time of my examination OBJECTIVE: Vital Signs: 98.3, 76, 16, 161/77, 100% saturated on room air. General: Awake and alert, responsive but inappropriate and she is not oriented. Lungs: Clear. Cardiovascular: Regular. ASSESSMENT AND PLAN: 1. At the time of this dictation, it appears the patient had a percutaneous endoscopic gastrostomy tube placed. Earlier in the day, when I examined the patient, her nasogastric tube looked like it was about to come out and a chest x-ray taken at that time did show inappropriate placement in the mid esophagus. 2. Status post laparotomy for small bowel obstruction, resolved. 3. Respiratory failure, resolved. 4. Mental status is at baseline. She does not cooperate with eating. She is incapable of making decisions. 5. The patient has a moderate anemia, mainly due to nutritional deficits and a prolonged hospitalization. 6. Dr. Morejon has the patient on meropenem and vancomycin. 7. Do not resuscitate level 1. 8. The [facility] the [facility] about [facility] rehab stay followed by permanent nursing placement. cc: Lázaro Boykin MD
--- NOTE | 2019-08-14 18:13 | INFECTIOUS DISEASE PROGRESS NO ---
DATE: 08/14/2019 PRESENT ILLNESS: The patient has a bilateral pneumonia which is improved. MEDICATIONS: This is day 15 of meropenem and day 12 of vancomycin. PHYSICAL EXAMINATION: Vital Signs: Temperature is 98.8 degrees, pulse 80, respirations 18, blood pressure 159/78. General: This is a chronically ill-appearing, malnourished appearing, elderly female. She is in no acute distress. She just came back from surgery were a G- tube was placed. Head/eyes/ears/nose/throat: She does not have any drainage from her nose or ears. I did not notice any white patches in her mouth. Neck: A right side jugular vein catheter is present. There is no bleedig or purulence at the catheter site. Lungs: Clear to auscultation. Cardiovascular: Heart rate is regular. Abdomen: Has a big binder around it. The patient had just come back from surgery for putting in a G-tube. The midline incision remains intact and there is no drainage coming from it. Neurologic: The patient is awake. She did not follow request to move her extremities. LAB AND X-RAY: Chest x-ray shows the patient's bilateral consolidations are improving. Creatinine is 0.4. GFR is greater than 60. CBC shows a white count of 4290, hemoglobin 10.2, platelet count 257,000. Procalcitonin is 0.67 which means that the patient is very likely to have pneumonia. ASSESSMENT AND PLAN: The patient does have pneumonia and even though she has been on antibiotics for a long time, I am going to keep them going because the infiltrates are still present, although they are getting better. COMORBIDITIES: The patient is elderly and she has a history of medical noncompliance. cc: MD Lázaro Ray MD MTDD
[2019-08-14] MEDS: HALDOL IV PRN (21:56)
[2019-08-15] MEDS: HUMALOG SUBQ SCH ×5 (04:12→17:47)
[2019-08-15] MEDS: LOVENOX SUBQ SCH (05:48)
[2019-08-15] MEDS: MERREM 1 GM in NS 50 ML IV SCH ×2 (05:48→12:13)
[2019-08-15] MEDS: PRILOSEC NG SCH (06:38)
[2019-08-15] MEDS: LOPRESSOR NG SCH ×3 (09:30→16:32)
[2019-08-15] MEDS: DIOVAN NG SCH (09:31)
[2019-08-15] MEDS: VANCOMYCIN 1 GM/NS 1 GM/250 ML IVPB IV SCH (09:33)
[2019-08-15] MEDS: MIRALAX NG SCH (09:34)
--- NOTE | 2019-08-15 11:57 | GASTROENTEROLOGY PROGRESS NOTE ---
DATE: 08/15/2019 SUBJECTIVE: Ms. Robert is a 69-year-old female. She is resting in bed, curled up, nodding her head when talking to her but not responding verbally. Her NG tube has been removed and she has a PEG tube in place with feeding of 1.2 Vital at 40 mL/hr, as per nursing staff she is tolerating her feeding well. The patient had 2 bowel movements today. OBJECTIVE: Vital Signs: Temperature 98.1 degrees, pulse is 130, respirations 18, blood pressure 121/104, oxygen saturation 96% on room air. General: Patient is awake, but not responding verbally. HEENT: Pale conjunctivae. No icterus. PERRL. Neck: Supple. Lungs: Clear to auscultation. Cardiovascular: Patient is tachycardic. Abdomen: Soft, nontender. Midline incision with ame dry and intact, PEG tube in place with a binder on it. Extremities: No clubbing, no cyanosis, no edema. Pedal pulses 2+ present. Neurologic: The patient is awake not verbal.. LABORATORY DATA: Hematology is from 08/14, WBC 4.29, RBCs 3.15, hemoglobin 10.2, hematocrit is 33.2, platelet count is 257,000. Sodium 137, potassium 4.5, chloride 104, carbon dioxide 22, anion gap 11, BUN 17, creatinine 0.4, glucose 43, calcium 9.6. IMAGING: Slight improvement of consolidation with an upper lung zone predominance. IMPRESSION AND PLAN: 1. Dysphagia. 2. Small bowel obstruction. 3. Pneumonia. 4. Dementia. 5. Anemia. 6. Severe protein calorie malnutrition. PLAN: Ms. Robert is a 69-year-old female with a history of congestive heart failure, diabetes type 2, dementia, who presented to the hospital with small bowel obstruction status post exploratory laparotomy and lysis of adhesions. GI is following her for dysphagia. An EGD was done yesterday with the PEG tube placement. She has been started on PEG tube feedings 1.2 Vital at 40 mL/hour. The patient is on vancomycin and Merrem for her pneumonia. We will continue to monitor the patient and follow the plan of care per PCP. This plan was discussed with Dr. Alegria. Please call us for any further questions or concerns. Dictated by HO Acevedo for Caio Alegria MD cc: Lázaro Boykin MD [facility]
--- NOTE | 2019-08-15 12:01 | PROVIDER PROGRESS NOTE ---
Progress Note Dr. Heaton Progress Note/Pulmonary and or critical care We appreciated progress of care, Complications, change in diagnosis, and instructions to patient. Subjective: We note the level of consciousness, bed (chair) position, family presence (if any), level of lethargy, feeling of symptoms, and changes from baseline condition/symptom. The patient is lying in bed with eyes closed and no acute distress noted. She open her eyes when her name is called, but not answering questions or following commands. She is on room air. She is on PEG tube feeding. Family at the bedside. Objective: Vital Signs: We reviewed EMR current values for Pulse rate, Blood pressure, Pulse rate, respiratory rate and Pulse oximetry. Also noted other values and trends if present (e.g. I/O, CVP). T 98.1, SD 130, RR 18, BP 121/104 and SaO2 96% on room air. Physical Examination: General: Lying in bed with no acute distress noted. HEENT: Atraumatic. Normocephalic. Trachea midline. Mucus pink and slightly dry. Chest: Desmond and unlabored. No increased work of breathing or gutter hanger muscle use. Symmetrical excursion. Clear to auscultation bilaterally. CVS: S1 and S2 noted. Abdomen: Soft. Bowel sounds present. Nondistended. PEG tube in place with binder type dressing around the abdominal area. Extremities: No pedal edema. Neuro: Open eyes when patients name is called, but not answering questions or following commands. Labs and Radiology: Reviewed available labs and radiology values available at time of EMR review. Assessment: DNR1 Postoperative respiratory failure, extubated on 07/23/2019. Improved. On room air. Bilateral pneumonia with small pleural effusions. Improved. Small bowel obstruction s/p laparotomy and adhesolysis on 07/21/19 Congestive heart failure with estimated left EF 30-35% with severe hypokinesis to akinesis of the apical anteroseptal region and apex Protein calorie malnutrition. PEG tube placement on 08/14/19. Dementia with diffuse cerebral atrophy Plan: Continue current treatment and supportive care per admitting and other teams on the case. Antibiotics including meropenem and vancomycin per Dr. Morejon. Appropriate DVT and GI prophylaxis. Discharge planning per Admitting MD. Discuss patient's status and care plan with family at the bedside and all questions answered. Input was appreciated from Admitting MD and other teams on the case.
--- NOTE | 2019-08-15 12:44 | PROGRESS NOTE ---
DATE: 08/15/2019 SUBJECTIVE: The patient is asleep in bed. She opened her eyes briefly but went right back to sleep. There is no family present for the second day in her room. OBJECTIVE: Vital Signs: 98.1, 130, 18, 121/104, 99% saturated on room air. Physical Examination: The patient is emaciated. Lungs: Clear. Cardiovascular: Regular, tachycardia. The site of her PEG was not viewed. Laboratory: Labs from yesterday show a hemoglobin of 10.2, creatinine of 0.4. ASSESSMENT AND PLAN: 1. Percutaneous endoscopic gastrostomy tube in place with tube feeds going at 40 mL. She seems to be tolerating this well. Nasogastric tube is out. 2. Status post laparotomy for a small bowel obstruction, resolved. 3. Respiratory failure, resolved. 4. Mental status is likely at baseline. 5. The patient has moderate anemia. We are going to need to recheck this. Previous time when she was anemic, she required transfusion. 6. Dr. Morejon has placed her on meropenem and vancomycin. I am sure that is at the end of its course. We will need to discontinue this shortly. 7. Do Not Resuscitate level 1. 8. The electronic health record indicates that we are seeking rehab placement to be followed by permanent [facility] placement. The patient really has little or no rehab potential. This has been discussed with the family multiple times and they are aware. cc: Lázaro Boykin MD
--- NOTE | 2019-08-15 19:10 | INFECTIOUS DISEASE PROGRESS NO ---
DATE: 08/15/2019 Following is a progress note and Cathy Robert count #[id number] dictation by Dr. the right Morejon. PRESENT ILLNESS: The patient has bilateral pulmonary infiltrates which could be due to pneumonia. MEDICATIONS: This is the 16th day of meropenem and the 13th day of vancomycin. OBJECTIVE: Vital signs: Temperature is 98.1 degrees, pulse 95, respirations 18, blood pressure 153/71. Generally this is a chronically ill-appearing and malnourished-appearing, elderly female. She seems to be confused tonight, but she is in no acute distress. Head, eyes, ears, nose and throat: No drainage was noted from the nose or ears. She is able to see near objects. She does talk, but I could not quite understand everything she was saying. I did not see any white patches in her mouth.Neck: The patient has a right-sided jugular vein catheter in place. The site is not bleeding or purulent. Lungs clear to auscultation. Cardiovascular: Heart rate is regular. Abdomen has a big binder around it. Underneath the binder is the patient's G-tube that was recently inserted. Neurologic: The patient is awake. She can move her extremities. She does talk, but it does not seem to make much sense. She did not follow my request to move her extremities or to answer my questions. LABORATORY DATA: CBC shows a white count of 4290, hemoglobin 10.2, platelet count 257,000. Creatinine is 0.4, GFR is greater than 60. ASSESSMENT AND PLAN: 1. I am going to discontinue the patient's antibiotics because she has been on them for so long, and possibly the residual abnormalities seen on chest x-ray are due to pulmonary venous congestion and also they are present because the x-ray lags behind how the patient's clinical course goes. Patients who are cured of their pneumonia sometimes have infiltrates in the lungs for many weeks until they are completely clear. 2. Comorbidities: She is elderly and she has a history of medical noncompliance. cc: MD Lázaro Ray MD
[2019-08-15] MEDS: HALDOL IV PRN (21:44)
[2019-08-16] MEDS: HUMALOG SUBQ SCH ×5 (03:45→17:46)
[2019-08-16] MEDS: LOVENOX SUBQ SCH (05:42)
[2019-08-16] MEDS: HALDOL IV PRN (05:42)
[2019-08-16] MEDS: PRILOSEC NG SCH (06:14)
--- NOTE | 2019-08-16 07:26 | Diag Imaging Result Doc PS360 ---
CHEST-1 VIEW - 08/16/2019 INDICATION: pneumonia COMPARISON: 08/14/2019 FINDINGS: There is a stable right central line. Stable severely low lung volumes. There has been mild improvement in the central infiltrates/edema bilaterally. There are probably trace pleural effusions. Heart size is top normal. IMPRESSION: Mild improvement in the central infiltrates. Electronically signed by Fred Beach 08/16/2019 7:24 AM
[2019-08-16 07:35] LABS: BASO# 0.05 X1000 (0.0-0.2); BASO% 0.8 % (0.0-0.8); EOS# 0.09 X1000 (0.0-0.7); EOS% 1.5 % (0.0-10.0); HEMATOCRIT 28.1 % (37.0-47.0); HEMOGLOBIN 8.9 g/dL (12.0-16.0); LYMPH# 1.59 X1000 (1.2-3.4); MCH 32.7 PG (27-31); MCHC 31.7 g/dL (33-37); MCV 103.3 FL (81-99); MONO# 0.75 X1000 (0.11-0.59); MONO% 12.3 % (1.7-9.3); MPV 11.7 FL (7.4-10.4); NEUT# 3.64 X1000 (1.4-6.5); NEUT% 59.4 % (42.2-75.2); PLT 347 X1000 (130-400); RBC 2.72 XMIL (4.2-5.4); RDW 19.6 % (11.5-14.5); WBC 6.12 X1000 (4.8-10.8)
[2019-08-16 08:00] LABS: AGAP 14; BUN 15 mg/dL (8-22); CALCIUM 9.4 mg/dL (8.8-10.2); CHLORIDE 104 mmol/L (98-107); COSMO 280; CREATININE 0.5 mg/dL (0.5-0.9); ESTIMATED GFR > 60; GLUCOSE 121 mg/dL (70-104); POTASSIUM 3.6 mmol/L (3.5-5.1); SODIUM 139 mmol/L (136-145); TCO2 21 mmol/L (25-35)
[2019-08-16] MEDS: DIOVAN NG SCH (09:19)
[2019-08-16] MEDS: LOPRESSOR NG SCH ×2 (09:20→21:58)
[2019-08-16] MEDS: MIRALAX NG SCH (09:20)
--- NOTE | 2019-08-16 09:45 | PROGRESS NOTE ---
DATE: 08/16/2019 SUBJECTIVE: The patient is asleep, but opens her eyes. There is a family member present. We discussed placement in upcoming days. OBJECTIVE: Vital Signs: 98.5 degrees, 109, 16, 111/55, 98% saturated on room air. PHYSICAL EXAMINATION: The patient is emaciated.Lungs: Clear. Cardiovascular: Regular tachycardia, rate in the 100 at the time of my examination. ASSESSMENT AND PLAN: 1. The patient's percutaneous endoscopic gastrostomy tube is in place and she has PEG tube feeds going at 60 mL an hour and seems to be tolerating this well. 2. Status post laparotomy for small bowel obstruction which has resolved. 3. Respiratory failure, which has resolved. 4. Mental status is at baseline. 5. Mild to moderate anemia with slight macrocytosis noted. 6. The patient continues on meropenem and vancomycin for probable pneumonitis. Social Work note indicates that the patient's son would like her to be placed in [facility] and appropriate materials have been faxed to that facility. Do not resuscitate level 1. cc: Lázaro Boykin MD
--- NOTE | 2019-08-16 13:11 | PROVIDER PROGRESS NOTE ---
Progress Note Dr. Heaton Progress Note/Pulmonary and or critical care We appreciated progress of care, Complications, change in diagnosis, and instructions to patient. Subjective: We note the level of consciousness, bed (chair) position, family presence (if any), level of lethargy, feeling of symptoms, and changes from baseline condition/symptom. The patient is lying in bed with no acute distress noted. She is on room air. She is awake and responsive when her name is called, but she does not answer any questions or follow any commands. No family at the bedside. Objective: Vital Signs: We reviewed EMR current values for Pulse rate, Blood pressure, Pulse rate, r espiratory rate and Pulse oximetry. Also noted other values and trends if present (e.g. I/O, CVP). T 98.2, CO 95, RR 15, BP 120/65 and SaO2 93% on room air. Physical Examination: General: Lying in bed with no acute distress noted. HEENT: Atraumatic. Normocephalic. Trachea midline. Mucus pink and slightly dry. Chest: Desmond and unlabored. No increased work of breathing or undercutter operator muscle use. Symmetrical excursion. Auscultation reveals very mild inspiratory crackles bibasilarly. CVS: S1 and S2 noted. Abdomen: Soft. Bowel sounds present. Nondistended. PEG tube in place with binder type dressing around the abdominal area. Extremities: No pedal edema. Neuro: Awake and alert. Not answer questions or follow commands. Labs and Radiology: Reviewed available labs and radiology values available at time of EMR review. CBC: macrocytic anemia BMP: Non-significant except Carbon dioxide 21 and glucose 121 CXR: Mild improvement in the central infiltrates. Assessment: DNR1 Postoperative respiratory failure, extubated on 07/23/2019. Improved. On room air. Bilateral pneumonia. Improved. Small bowel obstruction s/p laparotomy and adhesolysis on 07/21/19 Congestive heart failure with estimated left EF 30-35% with severe hypokinesis to akinesis of the apical anteroseptal region and apex Protein calorie malnutrition. PEG tube placement on 08/14/19. Dementia with diffuse cerebral atrophy Plan: Continue current treatment and supportive care per admitting and other teams on the case. Antibiotics including meropenem and vancomycin per Dr. Morejon. Appropriate DVT and GI prophylaxis. Discharge planning per Admitting MD. Input was appreciated from Admitting MD and other teams on the case.
--- NOTE | 2019-08-16 14:28 | INFECTIOUS DISEASE PROGRESS NO ---
DATE: 08/16/2019 PRESENT ILLNESS: The patient has bilateral pulmonary infiltrates. According to the most recent chest x-ray, the infiltrates are getting less. The patient also had been on a lot of antibiotic therapy. MEDICATIONS: Yesterday I stopped meropenem and vancomycin. The patient had been on meropenem for 16 days and vancomycin for 13 days. PHYSICAL EXAMINATION: Vital Signs: Temperature is 98.2 degrees, pulse 95, respirations 15, blood pressure 120/65. General: This is a chronically ill-appearing and malnourished-appearing elderly female. She was in no acute distress. Head, eyes, ears, nose, throat: She appeared to be able to hear my spoken words and also she appeared to be able to see near objects. I did not notice any white patches in her mouth. Neck: No pain with movement. The patient has a right-sided jugular vein catheter in place. The site is not swollen or purulent. Lungs: Clear to auscultation. Cardiovascular: Heart rate is regular. Abdomen: Has a large binder around her because she had a G-tube placed. Neurologic: Patient is awake. She did not follow my request to move her extremities and she did not answer any questions I asked her. LABORATORY AND RADIOLOGY: The patient's CBC today shows a white count of 6120, hemoglobin 8.9, platelet count 347,000. Creatinine is 0.5 GFR is greater than 60. Chest x-ray shows improvement in the bilateral infiltrates. ASSESSMENT AND PLAN: The patient appears to be getting better off antibiotics. I think that her pneumonia has cleared and the infiltrates she has now could be pulmonary venous congestion or it could be due to the pneumonia because it takes weeks for all the infiltrates to disappear from the patient who has pneumonia but even if the patient does not have any active pneumonia. COMORBIDITIES: The patient is elderly and she has a history of medical noncompliance. As I mentioned above, I do not think the patient has any active pneumonia now. I do not think she needs further antibiotics. I am going to sign off of her case now but I am available to see her on a p.r.n. basis. cc: MD Lázaro Ray MD
[2019-08-17] MEDS: LOVENOX SUBQ SCH (05:51)
[2019-08-17] MEDS: PRILOSEC NG SCH ×2 (05:51→06:49)
[2019-08-17] MEDS: HUMALOG SUBQ SCH ×5 (05:55→17:42)
[2019-08-17] MEDS: HALDOL IV PRN ×2 (06:02→10:38)
[2019-08-17] MEDS: MIRALAX NG SCH (08:30)
[2019-08-17] MEDS: LOPRESSOR NG SCH ×2 (08:30→22:13)
[2019-08-17] MEDS: DIOVAN NG SCH (08:31)
--- NOTE | 2019-08-17 14:45 | PROVIDER PROGRESS NOTE ---
Progress Note Dr. Heaton Progress Note/Pulmonary and or critical care We appreciated progress of care, Complications, change in diagnosis, and instructions to patient. Subjective: We note the level of consciousness, bed (chair) position, family presence (if any), level of lethargy, feeling of symptoms, and changes from baseline condition/symptom. The patient is lying in bed with no acute distress noted. She appears asleep. She is on room air. No family at the bedside. Objective: Vital Signs: We reviewed EMR current values for Pulse rate, Blood pressure, Pulse rate, respiratory rate and Pulse oximetry. Also noted other values and trends if present (e.g. I/O, CVP). T 97.6, SD 104, RR 16, BP 148/72 and SaO2 97% on room air. Physical Examination: General: Lying in bed with no acute distress noted. HEENT: Atraumatic. Normocephalic. Trachea midline. Mucus pink and moist. Chest: Desmond and unlabored. Symmetrical excursion. Auscultation reveals very mild inspiratory crackles bibasilarly. CVS: S1 and S2 noted. Abdomen: Soft. Bowel sounds present. Nondistended. PEG tube in place with binder type dressing around the abdominal area. Extremities: No pedal edema. Neuro: Sleeping. Labs and Radiology: Reviewed available labs and radiology values available at time of EMR review. Assessment: DNR1 Postoperative respiratory failure, extubated on 07/23/2019. Improved. On room air. Bilateral pneumonia. Complete antibiotic therapy per Dr. Morejon on 08/15/19. Small bowel obstruction s/p laparotomy and adhesolysis on 07/21/19 Congestive heart failure with estimated left EF 30-35% with severe hypokinesis to akinesis of the apical anteroseptal region and apex Protein calorie malnutrition. PEG tube placement on 08/14/19. Dementia with diffuse cerebral atrophy Plan: Continue current treatment and supportive care per admitting and other teams on the case. Appropriate DVT and GI prophylaxis. Discharge planning per Admitting MD. Input was appreciated from Admitting MD and other teams on the case.
--- NOTE | 2019-08-17 14:46 | GASTROENTEROLOGY PROGRESS NOTE ---
DATE: 08/17/2019 SUBJECTIVE: Ms. Robert is a 69-year-old, -[place] female resting in bed. The patient was refusing to talk today. She has a PEG tube in place with feeding of 1.2 Vital at 60 mL per hour. The patient is tolerating her feedings well and her PEG tube is in place. The patient has been having positive bowel movements. She had two bowel movements today. OBJECTIVE: Vital Signs: Temperature 97.6 degrees, pulse 104, respirations 16, blood pressure 148/72, oxygen saturation 97% on room air. The patient's BMI is 15.4 kg/m2. General: The patient is awake but not responding verbally. HEENT: Pale conjunctivae. No icterus. PERRL. Neck: Supple. Lungs: Clear to auscultation. Cardiovascular: Patient is tachycardic. Abdomen: Soft, nontender. Midline incision with ame dry and intact. PEG tube in place with a binder on it. Extremities: No clubbing, no cyanosis, no edema. Pedal pulses 2+ present bilaterally. Neurologic: The patient is awake but not verbal. LABS: WBCs are 6.12, RBCs 2.72, hemoglobin 8.9, hematocrit 28.1, platelet count is 347,000. Sodium 139, potassium 3.6, chloride 104, carbon dioxide 21, anion gap 14, BUN 15, creatinine 0.5, glucose 121, calcium 9.4. IMAGING: Patient's chest x-ray yesterday showed mild improvement in the central infiltrates. IMPRESSION AND PLAN Dysphagia S/p PEG placement Small bowel obstruction Malnutrition Dementia Diabetes Ch/o CHF PLAN: Ms. Robert is a 69-year-old, -[place] female with a history of CHF, diabetes, dementia. GI is following her for her dysphagia. We did an EGD with a PEG placement. Patient is receiving feedings through her PEG at 1.2 Vital at 60 mL per hour. The patient is tolerating her tube feeding well. [facility] has been [facility] and there is a bed available for her. The patient will be discharged to the rehab facility. We will follow her up as an outpatient in 4 to 6 weeks. Please make a note for the rehab facility nurses to change her PEG tube dressing daily for 1 week and monitor for any redness, edema or skin breakdown. We will continue to monitor the patient and follow the plan of care per PCP. This plan was discussed with Dr. Camacho. Please call us for any further questions or concerns. Dictated by HO Acevedo for Brayan Camacho MD cc: MD Lázaro Garvin MD I have seen and examined the patient myself and I agree with the above plan of care. I changed the patient's PEG tube site dressing at bedside with RN assistance. Please call us with any questions or concerns. JESSI
--- NOTE | 2019-08-17 18:31 | PROGRESS NOTE ---
DATE: 08/17/2019 SUBJECTIVE: There is no family present. The patient is in bed curled up in a semi position. She opens her eyes, and tries to respond in sentences, but does not have much relevance to her conversation. She is calm. OBJECTIVE: Vital Signs: Temperature 98.8, 112, 16, 121/66, and 98% saturated on room air. General: The patient is emaciated. She is awake and alert. She is conversive, but inappropriate. She is not oriented. Lungs: Clear. Cardiovascular: Regular. LABORATORY: There is no laboratory drawn today. Her blood sugar was 129. ASSESSMENT AND PLAN: 1. Patient's PEG tube is in place and is functioning well. She has tube feeds at 60 mL an hour, and is tolerating those well. She is having bowel movements. 2. Status post right laparotomy for small bowel obstruction which has resolved. 3. Postoperative respiratory failure, which had resolved. 4. Mental status is at baseline. 5. Mild to moderate anemia with slight macrocytosis has been noted. 6. The patient is slightly tachycardic today. 7. The patient is off of antibiotics for probable pneumonitis. 8. Social Work and case planning notes indicate that she has been accepted at [facility]. We planned transfer tomorrow. 9. Do not resuscitate level 1. cc: Lázaro Boykin MD MTDD
--- NOTE | 2019-08-17 18:31 | DISCHARGE SUMMARY ---
ADMISSION DATE: 07/15/2019 DISCHARGE DATE: 08/18/2019 DISCHARGE DIAGNOSES: 1. Cachexia. 2. Advanced dementia. 3. Status post small-bowel obstruction with open laparotomy. 4. Status post postoperative respiratory failure with bilateral pneumonia. 5. 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 CONSULTATIONS: Zackary Morejon MD; Karis Sarmiento MD; Brayan Camacho MD; Cyndi Heaton MD. OPERATIVE PROCEDURES: 1. Exploratory laparotomy with lysis of adhesion. 2. Percutaneous endoscopic gastrostomy tube. HOSPITAL COURSE: The patient was brought to the hospital by her family for extreme emaciation and a decline in mental function. This had been an ongoing hardin for months. Over the past 2 years, the patient's mental faculties have failed her and she has progressively gone downhill. She was seen back in February due to weight loss and noncooperation with attempts to improve her nutrition ordered to manage her medication. Her family brought her to the hospital. Finally, and we admitted her to try and improve her situation. MRI of the brain showed significant loss of mass considered consistent with advanced dementia. There was no evidence of old or new stroke. Consultation with Dr. Mendoza allowed us to at least confirmed that diagnosis. The patient had difficulty eating and would not cooperate. She was given IV fluids and IV nutrition but then suffered another breakdown where she was vomiting feculent material. Dr. Sarmiento was consulted and performed an exploratory laparotomy, which showed a small bowel adhesion and obstruction which he relieved. Due to her interstitial status, her recovery was difficult. In the immediate postoperative period, the patient had respiratory failure. Dr. Heaton was consulted and was instrumental and weaning her off the ventilator and improving her overall condition. Because the patient's chest x-ray remained rather cloudy, Dr. Morejon was consulted, who felt that she did have some form of pneumonia and treated her aggressively with IV antibiotics and along with Dr. Heaton's pulmonary treatment, she gradually improved. Even though the patient's level of consciousness improved a good week after her operation, she still would not cooperate with p.o. intake and was basically operating at baseline mental function, which is eyes open, alert but not oriented and although conversive, not really engaged in any meaningful way with communication. An NG tube was placed for tube feedings and again this was instrumental in helping her with her postoperative wound healing and respiratory improvement. Eventually we obtained permission from the family to put a PEG tube in and this was performed by Dr. Camacho with no difficulties. She started back on continuous tube feedings at 60 mL an hour. She tolerated this well. Over the course of her hospitalization, I had multiple conversations with family members about long-term placement. She was unable to go home because the immediate family was not she graphically close enough to take full care of her and her needs would exceed their ability to do that anyway. In consultation with the family, we arranged to have her transferred to the [facility] in [place], which is close to where her son lives. In fact, his works at the facility. The patient was a do not resuscitate level 1 throughout her hospitalization. Her likelihood of recovery is very, very low and she has no rehab potential per se. We will continue with the do not resuscitate orders and try to make her as comfortable as possible. cc: Lázaro Boykin MD
[2019-08-18] MEDS: HALDOL IV PRN ×3 (02:05→17:12)
[2019-08-18] MEDS: HUMALOG SUBQ SCH ×5 (05:41→17:12)
[2019-08-18] MEDS: PRILOSEC NG SCH (07:05)
[2019-08-18] MEDS: LOVENOX SUBQ SCH (07:09)
[2019-08-18 08:02] LABS: AGAP 10; ALB/GLOB RATIO 0.8; ALBUMIN 3.1 g/dL (3.5-5.0); ALKALINE PHOSPHATASE 121 U/L (32-104); BUN 21 mg/dL (8-22); CALCIUM 9.4 mg/dL (8.8-10.2); CHLORIDE 105 mmol/L (98-107); COSMO 285; CREATININE 0.5 mg/dL (0.5-0.9); ESTIMATED GFR > 60; GLUCOSE 175 mg/dL (70-104); GOT 24 U/L (10-30); GPT 29 U/L (10-36); POTASSIUM 4.1 mmol/L (3.5-5.1); SODIUM 139 mmol/L (136-145); TCO2 24 mmol/L (25-35); TOTAL BILIRUBIN 0.42 mg/dL (0.20-1.00); TOTAL PROTEIN 6.8 g/dL (6.3-8.3)
[2019-08-18] MEDS: DIOVAN NG SCH (09:04)
[2019-08-18] MEDS: LOPRESSOR NG SCH (09:04)
[2019-08-18] MEDS: MIRALAX NG SCH (09:05)
--- NOTE | 2019-08-18 14:38 | PROGRESS NOTE ---
DATE: 08/18/2019 SUBJECTIVE: Ms Robert is going to a long term. I removed the retention sutures and her skin clips. Her midline incision is healing without complication. She has a gastrostomy tube in place and she is tolerating her tube feeding at 60 mL an hour. cc: MD Lázaro Hyman MD
[2019-08-18 15:13] VITALS: BP 101/63
--- NOTE | 2019-08-18 18:15 | PROVIDER PROGRESS NOTE ---
Progress Note Dr. Heaton Progress Note/Pulmonary and or critical care We appreciated progress of care, Complications, change in diagnosis, and instructions to patient. Subjective: We note the level of consciousness, bed (chair) position, family presence (if any), level of lethargy, feeling of symptoms, and changes from baseline condition/symptom. The patient is lying in bed with no acute distress noted. She is sleeping on her abdomen. She is on room air. Family at the bedside. Objective: Vital Signs: We reviewed EMR current values for Pulse rate, Blood pressure, Pulse rate, respiratory rate and Pulse oximetry. Also noted other values and trends if present (e.g. I/O, CVP). T 98.3, MS 94, RR 16, BP 115/67 and SaO2 95% on room air. Physical Examination: General: Lying in bed on her abdomen with no acute distress noted. HEENT: Atraumatic. Normocephalic. Trachea midline. Mucus pink and moist. Chest: Desmond and unlabored. Symmetrical excursion. Auscultation reveals very mild inspiratory crackles bibasilarly posteriorly. CVS: S1 and S2 noted. Abdomen: Soft. Bowel sounds present. Nondistended. PEG tube in place with binder type dressing around the abdominal and chest area. Extremities: No pedal edema. Neuro: Sleeping. Labs and Radiology: Reviewed available labs and radiology values available at time of EMR review. Laboratory Results 08/17/19 08/18/19 08/18/19 20:46 01:02 04:45 Sodium Potassium Chloride Carbon Dioxide Anion Gap BUN Creatinine Estimated GFR/1.73 m2 BUN/Creatinine Ratio Glucose POC Glucose 198 H D 146 H 150 H Calculated Osmolality Calcium Total Bilirubin AST ALT Alkaline Phosphatase Total Protein Albumin Globulin Albumin/Globulin Ratio 08/18/19 07:00 Sodium 139 Potassium 4.1 Chloride 105 Carbon Dioxide 24 L Anion Gap 10 BUN 21 Creatinine 0.5 Estimated GFR/1.73 m2 > 60 BUN/Creatinine Ratio 42 Glucose 175 H POC Glucose Calculated Osmolality 285 Calcium 9.4 Total Bilirubin 0.42 AST 24 ALT 29 Alkaline Phosphatase 121 H Total Protein 6.8 Albumin 3.1 L Globulin 3.7 Albumin/Globulin Ratio 0.8 Assessment: DNR1 Postoperative respiratory failure, extubated on 07/23/2019. Improved. On room air. Bilateral pneumonia. Complete antibiotic therapy per Dr. Morejon on 08/15/19. Small bowel obstruction s/p laparotomy and adhesolysis on 07/21/19 Congestive heart failure with estimated left EF 30-35% with severe hypokinesis to akinesis of the apical anteroseptal region and apex Protein calorie malnutrition. PEG tube placement on 08/14/19. Dementia with diffuse cerebral atrophy Plan: Continue current treatment and supportive care per admitting and other teams on the case. Appropriate DVT and GI prophylaxis. Discharge planning per Admitting MD. Input was appreciated from Admitting MD and other teams on the case.
== END 2019-08-18 18:34 | DRG 335 ==
LOC: SUPCPDRO → ED 15:12 → 4N 19:50 → ICU 07-21 16:26 → 4N 08-01 11:02
PROVIDERS: ADMIT Internal Medicine; ATTEND Internal Medicine